=== PATIENT | male | born 1935 | race Hispanic/Latino ===

== ENCOUNTER 2017-08-22 12:22 | Inpatient (IN) | payer MEDICAID, SELFPAY ==
[2017-08-22 13:00] LABS: #Basophils 0.1 thou/uL (0.0-0.2); #Eosinphils 0.1 thou/uL (0.0-0.7); #Lymphocytes 1.1 thou/uL (1.20-3.40); #Monocytes 0.3 thou/uL (0.11-0.59); #Neutrophils 4.2 thou/uL (1.40-6.50); %Basophils 1.4 % (0.0-1.0); %Lymphocytes 18.9 % (21.0-51.0); %Neutrophils 73.6 % (42.0-75.0); Hemoglobin 12.4 g/dL (14.0-18.0); Mean Corpuscular HGB CONC 32.9 g/dL (32.0-36.0); Mean Corpuscular Hemoglobin 32.3 pg (27.0-31.0); Mean Corpuscular Volume 98.1 fl (80.0-94.0); Mean Platelet Volume 6.5 fL (7.4-10.4); Platelet Count 214 thou/uL (130-400); RBC Distribution Width 12.8 % (11.5-14.5); Red Blood Cell (RBC) Count 3.84 mill/uL (4.70-6.10); White Blood Cell (WBC) Count 5.7 thou/uL (4.8-10.8)
[2017-08-22 13:12] LABS: INR-International Normal Ratio 1.1; PTT 28.5 SEC (22.9-36.1); Prothrombin Time 14.5 SEC (12.0-14.7)
[2017-08-22 13:14] LABS: ALT (SGPT) 16 U/L (8-55); AST (SGOT) 14 U/L (5-34); Albumin 3.5 g/dL (3.4-4.8); Alkaline Phosphatase 85 U/L (40-150); Anion Gap 9 mmol/L (10-20); BUN (Urea Nitrogen) 22 mg/dL (8.4-25.7); Bilirubin, Total 0.5 mg/dL (0.2-1.2); Calc. Creatinine Clearance 0 mL/min (70-130); Calcium 8.9 mg/dL (7.8-10.44); Carbon Dioxide 28 mmol/L (23-31); Chloride 105 mmol/L (98-107); Estimated GFR-MDRD 65; Globulin 3.4 g/dL (2.4-3.5); Glucose 139 mg/dL (83-110); Potassium 3.3 mmol/L (3.5-5.1); Protein, Total 6.9 g/dL (5.8-8.1); Sodium 139 mmol/L (136-145)
[2017-08-22 13:17] LABS: CKMB 1.8 ng/mL (0-6.6); Troponin I 0.185 ng/mL (< 0.028)
--- NOTE | 2017-08-22 13:18 | CT ---
NONCONTRAST CT HEAD: DATE: 08/22/17. HISTORY: Altered mental status. COMPARISON: None available. FINDINGS: There is a craniotomy defect involving the posterolateral left occipital bone. There is encephalomal acia underlying the craniotomy defect which may be related to either remote injury or encephalomalaci a secondary to remote infarction. There is decreased attenuation in the periventricular white matter related to chronic small-vessel ischemic changes. Low-density foci are seen in each basal ganglia s uggesting lacunar infarctions of indeterminate age. Low-density areas are also seen in the sheryl bila terally which may represent chronic ischemic changes. There is no evidence of an acute cortical infa rction, hemorrhage, mass effect, or midline shift. Mild cerebral volume loss is present. The mastoid air cells are not well pneumatized, but the visualized mastoid air cells do appear opacif ied. There is mucosal thickening present in the left maxillary antrum and to a lesser degree each sp henoid sinus. IMPRESSION: 1. No acute intracranial abnormalities demonstrated. 2. Indeterminate lacunar infarctions in each basal ganglia. 3. Encephalomalacia left temporo-occipital lobe with overlying craniotomy defect present. There is ex vacuole dilatation of the occipital horn and temporal horn of the left lateral ventricle. 4. Chronic small-vessel ischemic changes. 5. Question of slight increased density in the left middle cerebral artery, but this is not as dense as typically expected with a hyperdense middle cerebral artery sign, but acute thrombus within the l eft middle cerebral artery cannot be entirely excluded. CTA brain is recommended for further evaluat ion. The above findings were discussed with Dr. Riggs in the emergency department on 08/22/17 at 1234 hour s. CODE CR POS: [facility]
--- NOTE | 2017-08-22 13:45 | CT ---
CT ANGIOGRAM HEAD WITH IV CONTRAST AND 3D RECONSTRUCTIONS CT ANGIOGRAM NECK WITH IV CONTRAST AND 3D RECONSTRUCTIONS: DATE: 08/22/17. HISTORY: Patient with stroke. Abnormal noncontrast CT head. TECHNIQUE: Contiguous axial CT images are obtained through the neck and head from the level of the aortic arch t o the vertex after the administration of intravenous contrast. Three-D reconstruction images are pro vided. COMPARISON: Noncontrast CT head on 08/22/17. FINDINGS: CTA NECK: The left common carotid artery arises from the innominate artery. There is atherosclerotic plaque in volving the great vessels, greatest involving the left subclavian artery where there is mild to moder ate narrowing seen proximally involving the left subclavian artery. The right subclavian artery whil e partially obscured does appear overall patent. The bilateral common carotid arteries are patent. There is mild atherosclerotic plaque in the region of the carotid bulbs and proximal internal carotid arteries bilaterally, but the internal carotid ar teries are otherwise patent. There is tortuosity involving the left internal carotid artery at the l evel of the C2 vertebral body, and a portion of the left ICA is mildly dilated which could be related to prior endarterectomy. The right vertebral artery is occluded at the origin. The left vertebral artery is patent. There is reflux of contrast into a very small caliber right vertebral artery at the skull base. Degenerative changes are seen in the cervical spine. Prevertebral soft tissues are within normal limits. There is volume loss involving the visualized upper lobes bilaterally with a few peripheral blebs and findings suggestive of minimal emphysematous changes of the lungs bilaterally. IMPRESSION: 1. 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 2. Mild to moderate narrowing involving the proximal left subclavian artery. 3. Atherosclerotic plaque involving the internal carotid arteries bilaterally, but no focal stenosis is present. The left internal carotid artery at the level of the C2 vertebral body is tortuous. CT ANGIOGRAM BRAIN WITH IV CONTRAST AND 3D RECONSTRUCTIONS: There is occlusion of the left middle cerebral artery at the level of the M1 segment left middle cere bral artery. The right middle cerebral artery is patent and branches of the right middle cerebral ar laila also appear patent. The bilateral anterior cerebral arteries are patent. The A1 segment on the right is not visualized and may be either absent or very small in caliber, either of which is a norm al variant. The basilar artery as well as the posterior cerebral arteries bilaterally are patent. As noted on the noncontrasted CT scan, there is encephalomalacia within the left temporo-occipital lo be with ex vacuo dilatation of the occipital and temporal horns of the left lateral ventricle and ove rlying craniotomy defect. The remainder of the findings of the CT head are described on noncontraste d CTA exam. IMPRESSION: 1. Occlusion of the left middle cerebral artery at the level of the M1 segment. 2. The right middle cerebral and the anterior cerebral arteries as well as posterior cerebral arteri es are patent. 3. Reflux of contrast into a very small caliber right vertebral artery which was shown on the CTA of the neck to be occluded at the origin of the right vertebral artery. 4. Encephalomalacia and gliosis of the left temporo-occipital lobe. 5. There are multilevel degenerative changes in the cervical spine with slight anterolisthesis of C5 on C6 and fusion of the C4 and C5 vertebral bodies. 6. The above findings were discussed with Dr. Riggs in the emergency department on 08/22/17 at 1248 hours. POS: [facility]
--- NOTE | 2017-08-22 13:51 | RAD ---
PORTABLE CHEST 1 VIEW: Date: 08/22/17 Time: 1332 hours HISTORY: Stroke alert. FINDINGS/IMPRESSION: The heart is enlarged. The lungs are expanded with mild pulmonary vascular congestion. No lobar conso lidation, pneumothoraces, or large effusions are seen. POS: [facility]
--- NOTE | 2017-08-22 16:28 | HP ---
PRIMARY CARE PHYSICIAN: Dr. Solitario. CHIEF COMPLAINT: Sudden loss of function on the right side and confusion. HISTORY OF PRESENT ILLNESS: The history of present illness is taken primarily from conversation with the patient's grandson who is at the bedside and he also got information from other family members o haider the telephone while we there in the ER. Mr. Maloney is a pleasant 82-year-old gentleman that has a history of hypertension and hypothyroidism. He also has a history of previous stroke about 20 years ago. He was in his usual state of health until he was sitting outside talking with family and then s uddenly he fell to the right side. They could tell that he was moving his left side, but he was not moving the right side. They got concerned and called EMS. His grandson was the one who called and h e says that they got there in about 5 minutes and during that time, they are waiting for the ambulanc e to arrive. The patient seemed to be making gurgling noises and gasping for breath. He does not se em to have any other symptoms; however, he said that he was talking and seemed like they can understa nd what he was saying. Other than that no other symptomology is obtainable. The patient currently i s just groaning, not making any particular words and does not follow commands. In the ER, he was anamaria luated and a CT scan of the brain was done. There was some area suspicious for an indeterminate lacu ar infarct in each basal ganglion. There is no evidence of any bleed. Given that the symptoms star jagdish within the window for tPA, stroke alert was initiated and the patient did undergo tPA and right n ow he is being prepared to be admitted to the ICU for post-tPA treatment. It has been about 30-45 mi nutes post-tPA and there has not been any significant improvement in his symptoms. REVIEW OF SYSTEMS: Unobtainable as the patient is unable to speak at this time. PAST MEDICAL HISTORY: Taken from the patient's grandson and includes hypertension, hypothyroidism, B PH, Alzheimer's disease. He says he started losing his memory about 7 years ago. History of cerebro vascular accident in which he had some hemiparesis and some memory problems, but he said this got bet ter. PAST SURGICAL HISTORY: Significant for some type of surgery on his head as well as surgery on the ri ght eye. ALLERGIES: No known drug allergies. SOCIAL HISTORY: Unknown. FAMILY HISTORY: Significant for a brother who had a heart attack as well as his father had a heart a ttack and brother had a stroke. MEDICATIONS: Include levothyroxine 50 mcg daily, Flomax 0.4 mg daily, sertraline 50 mg daily, Namend a 10 mg twice a day, donepezil 10 mg daily, amlodipine 10 mg daily, losartan/hydrochlorothiazide 100/ 25 daily, and finasteride 5 mg daily. PHYSICAL EXAMINATION: GENERAL: He is awake, but he appears to be disoriented. He is at time thrashing about on the stretc her. He does not follow anybody in the room and does not make eye contact. He is well-developed and well-nourished. VITAL SIGNS: His blood pressure was 134/66, heart rate 67, respiratory rate of 14, temperature is 97 .8. HEENT: His right pupil is larger than that on the left. It is irregular and there is some arcus sen ilis. Throat: He does look to have a right facial droop. NECK: There are no bruits, no adenopathy. LUNGS: Clear. There is no wheezing, no rales. CARDIOVASCULAR: He has a normal S1 and S2. The heart rate is slightly irregular. No murmurs apprec iated. ABDOMEN: Obese, it is soft, positive for bowel sounds. EXTREMITIES: There is 1+ pedal edema. NEUROLOGIC: He is moving the left side. He is moving the right leg. It appears to be slightly weak er than on the right than on the left and he will not follow commands. He appears to have a right fa cial droop and the right upper extremity appears to be weak. He appears to be able to move his right upper extremity from the shoulder, but not from the forearm. LABORATORY DATA AND IMAGING DATA: White blood cell count is 5.7, hemoglobin is 12.4, hematocrit is 3 7.7, and platelet count is 214. INR is 1.1. Sodium is 139, potassium 3.3, chloride is 105, CO2 is 2 8, BUN of 22, creatinine 1.09, and glucose is 139. Troponin was 0.0185. EKG was atrial fibrillation with heart rate of 67 and possible infarct in the lateral infarct with some poor R-wave progression in II, III, and AVF. He had a CT angiogram of the neck and brain with brain perfusion and there was an occlusion of left middle cerebral artery at the level of the M1 segment. The right middle cerebra l artery and intracerebral arteries as well as posterior cerebral arteries were patent. There was en cephalomalacia and gliosis of the left tempo-occipital lobe. There was some degenerative joint disea se at C5-C6 and C4-C5. The findings based on the perfusion images are most suggestive of a completed infarct in the left middle cerebral artery distribution. There is no significant penumbra in that a ihsan. ASSESSMENT AND PLAN: This is an 82-year-old gentleman who is admitted with an acute left middle cere bral artery distribution cerebrovascular accident who is post-tPA. He will be admitted to the ICU fo r the post-tPA protocol. We will hold off on any aspirin therapy for the next 48 hours. Continue to monitor him closely for signs of any neurological compromise which would suggest cerebral hemorrhage . Neurology will be consulted. He will likely require an MRI or repeat CT scan in the a.m. An echo cardiogram will be done. Since he is in atrial fibrillation, we will also consult Cardiology. At so me point, he will need to be considered for anticoagulation; however, the timing of which will be def erred to both Neurology and Cardiology. Since he will be in the ICU, a Critical Care consult will al so be obtained. He will be left n.p.o. Speech therapy will be consulted as well as physical therapy and occupational therapy. Further recommendations will be based on his clinical progression.
[2017-08-22 16:55] LABS: Troponin I 0.165 ng/mL (< 0.028)
[2017-08-22] MEDS ORDERED: ISOVUE-370 76%-LOCM 1 ML ONE (17:20)
[2017-08-22] MEDS: Sodium Chloride 0.9% 1,000 ML IV SCH (17:28)
[2017-08-22 19:41] LABS: Troponin I 0.182 ng/mL (< 0.028)
[2017-08-22] MEDS: Lorazepam 2 MG/ML VIAL SLOW IVP PRN (20:18)
[2017-08-22] MEDS: Famotidine/PF 20 mg/2ml Vial SLOW IVP SCH (20:19)
--- NOTE | 2017-08-22 22:11 | CON ---
DATE OF CONSULTATION: 08/22/2017 CHIEF COMPLAINT: Acute stroke. HISTORY OF PRESENT ILLNESS: Patient is unable to give me any medical history and I was able to obtai n history only from his chart. Patient was apparently sitting at home with his grandson and has a pr ior history of dementia, hypertension, hypothyroidism, and prior stroke 20 years ago and he was talki ng to his family and then fell to the right side and they could tell he was moving the left side and he was unable to talk and made gurgling noises, gasping for breath and he was brought to the ER and h e was given IV TPA and subsequent to that, he was transferred to CCU and I was consulted this evening to come and see the patient. At this time, patient is agitated, somewhat drowsy and when he does wa ke up, tried to move his whole body, and I did not see any movement in the right arm. Per nurses, he tries to throw himself off the bed. PREVIOUS MEDICAL HISTORY: Hypertension, hypothyroidism, Alzheimer dementia, and CVA which is remote. PREVIOUS SURGICAL HISTORY: Brain surgery and right eye surgery, details unknown. ALLERGIES: No drug allergies. SOCIAL HISTORY: Lives with family. FAMILY HISTORY: Positive for DC in his brother and stroke. REVIEW OF SYSTEMS: Unobtainable. MEDICATIONS: As noted in chart. LABORATORY WORKUP: White count 5.7, hemoglobin 12.4, hematocrit 37.7, platelets 214. Chemistry: So dium 139, potassium 3.3, chloride 105, bicarbonate 28, BUN 22, creatinine 1.09, troponin I 0.[address] scan of the head was done at 12:24 p.m. and it shows no acute intracranial abnormalities, but he h as indeterminate lacunar infarctions bilateral vein basal ganglia, encephalomalacia of left temporal- occipital lobe with overlying craniotomy defect and there is ex vacuo dilatation of the occipital hor n, chronic small vessel ischemic changes, and questionable slight increased density in the left MCA, but is not as dense as typically expected with hyperdense MCA sign and CT angiogram was also complete d and CT angio shows occlusion of the left MCA at the level of the M1 segment, right MCA, and anterio r cerebral arteries as well as posterior cerebral arteries are patent. Reflux of contrast into a haider y small caliber right vertebral artery was shown and encephalomalacia gliosis of left temporal-occipi driss lobe. CT angio of the neck showed occlusion of right vertebral artery at the region and mild to moderate narrowing involving the proximal left subclavian artery atherosclerotic plaque in the intrac ranial arteries bilaterally. PHYSICAL EXAMINATION: VITAL SIGNS: Blood pressure 80/51, pulse rate is 102, and patient is afebrile. Temperature 98.3 and O2 sats 95. GENERAL APPEARANCE: Well-built, well-nourished gentleman who is not alert or cooperative. He is deborah ble to follow any commands. He goes from being sleepy to agitated. CHEST: Clear vesicular breathing. CARDIOVASCULAR: S1, S2 heard, no murmurs, carotids difficult to auscultate. ABDOMEN: Soft. NEUROLOGICAL: Higher intellectual functions. The patient is thrashing in bed at times or sleepy. C ranial nerves: He has gaze deviation to the left fundus normal. Facial asymmetry with right facial droop. He did not open his mouth for me to assess his palate or tongue exam. Motor examination: Bu lk normal, tone normal, strength unable to assess, but he seems to move his left upper and lower extr emities well and not moving his right upper and lower extremity and tends to get agitated. Deep tend on reflexes were absent, unable to assess sensory or cerebellar systems. IMPRESSION: The patient is an 82-year-old man with prior preexisting Alzheimer's dementia. He comes in with acute stroke and is status post IV TPA. At this time, his examination shows agitation or sl eepiness with predominantly predominate and primary ability to move the left side of his body. He is not moving his right side. His mental status is varying from drowsiness to agitation. Clinical lalito gnosis and history is most consistent with acute cerebrovascular accident status post IV TPA and ence phalopathy. RECOMMENDATIONS: 1. Please follow the protocol for post-IV TPA stroke prophylaxis and we will maintain his blood pres sures within parameters to allow cerebral perfusion. 2. Monitor his neurological status, particularly for any possible decline due to his age and also lev el of consciousness. I will follow up the patient with you in a.m. Please call me if you have any additional questions.
[2017-08-23 05:45] LABS: #Lymphocytes 1.3 thou/uL (1.20-3.40); #Monocytes 0.6 thou/uL (0.11-0.59); #Neutrophils 9.4 thou/uL (1.40-6.50); %Basophils 0.2 % (0.0-1.0); %Eosinophils 0.3 % (0.0-10.0); %Lymphocytes 11.2 % (21.0-51.0); %Monocytes 5.4 % (0.0-10.0); %Neutrophils 82.9 % (42.0-75.0); Hemoglobin 12.3 g/dL (14.0-18.0); Mean Corpuscular HGB CONC 32.9 g/dL (32.0-36.0); Mean Corpuscular Volume 97.1 fl (80.0-94.0); Platelet Count 214 thou/uL (130-400); RBC Distribution Width 12.8 % (11.5-14.5); Red Blood Cell (RBC) Count 3.85 mill/uL (4.70-6.10); White Blood Cell (WBC) Count 11.4 thou/uL (4.8-10.8)
[2017-08-23 06:05] LABS: Anion Gap 8 mmol/L (10-20); BUN (Urea Nitrogen) 19 mg/dL (8.4-25.7); Calc. Creatinine Clearance 81 mL/min (70-130); Calcium 8.8 mg/dL (7.8-10.44); Carbon Dioxide 28 mmol/L (23-31); Cardiac Risk 3.7 (Less than 4.5); Chloride 110 mmol/L (98-107); Cholesterol 157 mg/dl (< 200 Desired); Estimated GFR-MDRD 78; Glucose 105 mg/dL (83-110); HDL Cholesterol 43 mg/dL (>60 Neg Risk); LDL Cholesterol, Calculated 103 mg/dL; Potassium 3.1 mmol/L (3.5-5.1); Sodium 143 mmol/L (136-145); Triglycerides 56 mg/dL (Less than 150)
[2017-08-23] MEDS: Lorazepam 2 MG/ML VIAL SLOW IVP PRN (06:36)
[2017-08-23] MEDS: Sodium Chloride 0.9% 1,000 ML IV SCH ×2 (06:36→18:40)
--- NOTE | 2017-08-23 09:41 | PDOC.PN ---
- Subjective Encounter Start Date: 08/23/17 Encounter Start Time: 09:39 Mr. Maloney appears confused and encephalopathic. He is not able to follow commands , and is not following with his eyes, he keeps them closed and is squirming around in the bed. He has been placed in restraints. - Objective Resuscitation Status: Resuscitation Status FULL:Full Resuscitation MAR Reviewed: Yes Vital Signs & Weight: Vital Signs (12 hours) Temp 08/23/17 04:00 98.6 F Weight Weight 207 lb 3.752 oz Most Recent Monitor Data Heart Rate from ECG 62 NIBP 133/64 NIBP BP-Mean 99 Respiration from ECG 12 SpO2 99 I&O: 08/22/17 08/23/17 08/24/17 06:59 06:59 06:59 Intake Total 1083 Output Total 0 Balance 1083 Result Diagrams: 08/23/17 05:30 08/23/17 05:30 Phys Exam - Physical Examination + right pupil is larger, left smaller, and reactive Respiratory: no rales + rhonchi bilaterally Cardiovascular: no significant murmur, irregular Gastrointestinal: soft, positive bowel sounds Musculoskeletal: no edema Dx/Plan (1) Acute CVA (cerebrovascular accident) Code(s): I63.9 - CEREBRAL INFARCTION, UNSPECIFIED Status: Acute (2) Hypertension Code(s): I10 - ESSENTIAL (PRIMARY) HYPERTENSION Status: Acute (3) Metabolic encephalopathy Code(s): G93.41 - METABOLIC ENCEPHALOPATHY Status: Acute (4) Dementia Code(s): F03.90 - UNSPECIFIED DEMENTIA WITHOUT BEHAVIORAL DISTURBANCE Status: Acute (5) BPH (benign prostatic hyperplasia) Code(s): N40.0 - BENIGN PROSTATIC HYPERPLASIA WITHOUT LOWER URINRY TRACT SYMP Status: Acute (6) Hypothyroidism Code(s): E03.9 - HYPOTHYROIDISM, UNSPECIFIED Status: Acute - Plan * Acute CVA s/p TPA- is condition has not improved much overnight * Will await further recommendations from Neurology * Begin aspirin when it is allowed * AFIB- ? new onset- his heart rate is controlled- there was no mention of this from his family, but not sure if they are familiar with his entire history - Cardiology has been consulted * Continue IV fluids * HTN- blood pressure has been stable- and will allow permissive hypertension * Encephalopathy- ? related to acute CVA.
[2017-08-23] MEDS: FLU VACC TS2017-18 (>65YR) 0.5 ML SYRINGE IM ONE ×2 (10:35→23:01)
[2017-08-23] MEDS: Famotidine/PF 20 mg/2ml Vial SLOW IVP SCH ×2 (10:35→21:10)
[2017-08-23] MEDS: Haloperidol Lactate 5 MG/ML VIAL IM PRN ×2 (11:57→22:09)
--- NOTE | 2017-08-23 14:26 | PRG ---
DATE OF SERVICE: 08/23/2017 CHIEF COMPLAINT: CVA. INTERVAL HISTORY: The patient is still very agitated throughout the night and patient continues to h ave agitation when awake. Therefore, he has been given Ativan this morning. My examination is post- Ativan injection earlier this morning. Per nurse, he is thrashing mostly when in bed and this has be en consistent since his admission. PHYSICAL EXAMINATION: VITAL SIGNS: Blood pressure 169/103, heart rate is 62 and he is afebrile. GENERAL APPEARANCE: The patient seems to be sedated and sleepy. CHEST: Clear vesicular breathing. CARDIOVASCULAR: S1 and S2 heard. NEUROLOGIC: The patient is not arousable, maximum response obtained is slight grimacing and grunting . Cranial nerves: Pupils are slightly asymmetric due to prior eye surgery in the right side and pup illary reflexes still preserved. Some facial asymmetry with facial weakness on the right side and mo tor exam, he is not withdrawing to stimuli even with deep pain throughout. Deep tendon reflexes were absent. LABORATORY AND IMAGING REPORTS: White count 11.4, hemoglobin 12.3, hematocrit 37.4 and platelets 214 . Chemistries: Sodium 143, potassium 3.1, chloride 110, bicarbonate 28, BUN 19, creatinine 0.93, tr iglycerides 56, cholesterol 157, LDL 103 and HDL [address]. Today's CT head is pending. IMPRESSION: The patient is an 82-year-old man with preexisting dementia and cerebrovascular accident . At this time, it is difficult to understand why he has altered mental status since admission witho ut any metabolic abnormalities. This could be most likely due to his cerebrovascular accident plus p reexisting dementia resulting in agitation. At this time, patient is sedated. Therefore, my neurolo gical exam is not very reliable. RECOMMENDATIONS: 1. Please complete his CT scan of the head today and I will follow up on the result. 2. If his encephalopathy continues, we may have to look more carefully for any underlying metabolic issues such as infection. 3. I will follow up the patient with you on a daily basis.
--- NOTE | 2017-08-23 15:39 | CON ---
DATE OF CONSULT: 08/23/17 HISTORY OF PRESENT: The patient is an 82-year-old gentleman who suffered a cerebrovascular accident and noted to be in an irregular heart rhythm. The patient is unable to give any coherent history. He has apparently a history of dementia. The patient apparently was admitted with acute altered mental status. He received TPA and was noted to be in irregular heart rhythm. PAST MEDICAL HISTORY: Significant for 1. Atrial fibrillation. 2. Dementia. 3. Hypertension. PAST SURGICAL HISTORY: Brain surgery and eye surgery. ALLERGIES: None. SOCIAL HISTORY: MEDICATIONS: See nursing list. REVIEW OF SYSTEMS: Not obtainable. PHYSICAL EXAMINATION GENERAL: Ill-appearing gentleman who is responsive to painful stimuli, Blood pressure 133/64. NECK: No jugular venous distention. LUNGS: Clear to auscultation. HEART: Irregular rate and rhythm, normal S1, S2. ABDOMEN: Distended. EXTREMITIES: Trace edema. LABORATORY: Sodium 143, potassium 3.1, chloride 110, bicarbonate 28, BUN 19, creatinine 0.93. His troponin is 0.182. His white blood cell count is 11.4, hemoglobin 12.3, hematocrit 37.4, and platelets 214. EKG revealed atrial fibrillation with left anterior fascicular block. IMPRESSION: 1. Status post cerebrovascular accident. 2. Atrial fibrillation 3. Hypertension. 4. Dementia. This gentleman suffered a cerebrovascular accident. We will check the patient' s echocardiogram. Await Neurology evaluation. The patient will eventually need to be placed on long-term anticoagulation therapy. Prognosis is poor. MTDD
--- NOTE | 2017-08-23 16:33 | CT ---
CT OF HEAD NONCONTRAST 08/23/17 INDICATION: Stroke. History of recent TPA administration. FINDINGS: Compared to 08/22/17 exam. There is a large region of left MCA subacute infarction with associated cytotoxic edema. This does re sult in mild mass effect with slight effacement of the left lateral ventricle. No significant shift o f midline structure. There is no obvious intracranial hemorrhage. Evidence of prior left craniotomy. IMPRESSION: Large subacute left MCA distribution infarction with mild associated mass effect. No obvious hemorrha ge transformation. POS: [facility]
--- NOTE | 2017-08-23 23:07 | CON ---
DATE OF CONSULTATION: 08/23/2017 HISTORY OF PRESENT ILLNESS: Mr. Maloney is an 82-year-old male. He was given TPA for right-sided weakn ess. He is very fidgety and difficult to keep in bed per my discussion with the nurses. He has a history of dementia, but is not at a patient support tech care environment. I was consulted because of his presence to the Critical Care Unit. PAST MEDICAL HISTORY: 1. Remarkable for hypertension. 2. Hypothyroidism. 3. History of a stroke in the past. 4. History of some type of brain surgery in the past. FAMILY HISTORY: Negative for lung disease at an early age. SOCIAL HISTORY: Non-smoker, nondrinker. ALLERGIES: He reports no allergies. MEDICATIONS: Have been reviewed. REVIEW OF SYSTEMS: Not obtainable. PHYSICAL EXAMINATION: VITAL SIGNS: His oximetry is 100%, blood pressure 165/83, heart rate 67, respiratory rate 17, oximet ry is 95%. HEENT: Pupils react. Sclerae is anicteric. He is protecting his airway. He moves all around the b ed. LUNGS: Clear. HEART: Regular rhythm. S1 and S2 are normal. ABDOMEN: Soft and nontender. EXTREMITIES: Without asymmetry. LABORATORY AND X-RAY FINDINGS: Repeat head CT shows middle cerebral artery distribution, left-sided thrombotic CVA with mass effect. White count is 11.4, hemoglobin 12.3, platelets 214. Sodium 143, potassium 3.1, chloride 110, bicarbonate 28, BUN 19, creatinine 0.93. 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 Has underlying dementia and does not help the situation. PLAN: Continue supportive care. Code status needs to be addressed. He is protecting his airway marky quately, but may progressively decline with time. This is a 70 minute consult greater than 50% of the time spent on the coordinating Care on the unit.
[2017-08-24] MEDS: Sodium Chloride 0.9% 1,000 ML IV SCH ×2 (06:20→19:17)
[2017-08-24] MEDS ORDERED: Prevnar 13-Val Conj/PF 0.5 ML SYRINGE IM ONE (09:00)
[2017-08-24] MEDS: Famotidine/PF 20 mg/2ml Vial SLOW IVP SCH ×2 (09:18→21:26)
--- NOTE | 2017-08-24 09:52 | PDOC.PN ---
- Subjective Encounter Start Date: 08/24/17 Encounter Start Time: 09:50 Mr. Maloney has not demonstrated much improvement overnight. He is still confused, and does not follow commands. - Objective Resuscitation Status: Resuscitation Status DNR:Do Not Resuscitate MAR Reviewed: Yes Vital Signs & Weight: Vital Signs (12 hours) Temp 08/24/17 08:00 98.6 F 08/24/17 04:00 98.3 F 08/24/17 00:00 98.4 F Weight Admit Weight 207 lb 3.752 oz Weight 207 lb 3.752 oz Most Recent Monitor Data Heart Rate from ECG 55 NIBP 164/75 NIBP BP-Mean 90 Respiration from ECG 13 SpO2 97 I&O: 08/23/17 08/24/17 08/25/17 06:59 06:59 06:59 Intake Total 1083 1627 Output Total 0 555 130 Balance 1083 1072 -130 Result Diagrams: 08/23/17 05:30 08/23/17 05:30 Phys Exam - Physical Examination HEENT: PERRLA Respiratory: wheezing present + expiratory wheeze, + rhonchi Cardiovascular: RRR, no significant murmur, no rub Gastrointestinal: soft, non-tender, positive bowel sounds Musculoskeletal: no edema Dx/Plan (1) Acute CVA (cerebrovascular accident) Code(s): I63.9 - CEREBRAL INFARCTION, UNSPECIFIED Status: Acute (2) Hypertension Code(s): I10 - ESSENTIAL (PRIMARY) HYPERTENSION Status: Acute (3) Metabolic encephalopathy Code(s): G93.41 - METABOLIC ENCEPHALOPATHY Status: Acute (4) Dementia Code(s): F03.90 - UNSPECIFIED DEMENTIA WITHOUT BEHAVIORAL DISTURBANCE Status: Acute (5) BPH (benign prostatic hyperplasia) Code(s): N40.0 - BENIGN PROSTATIC HYPERPLASIA WITHOUT LOWER URINRY TRACT SYMP Status: Acute (6) Hypothyroidism Code(s): E03.9 - HYPOTHYROIDISM, UNSPECIFIED Status: Acute - Plan * Acute CVA- patient is post TPA and there is no evidence of bleed on repeat CT scan * He unfortunately is still encephalopathic * He can likely be moved out of the ICU * recommendations as per Neurology * AFIB- rate is controlled * HTN- blood pressure is controlled * Continue IV fluids, and will need to consider Nutritional support.
[2017-08-24 10:33] LABS: #Lymphocytes 1.3 thou/uL (1.20-3.40); #Monocytes 0.7 thou/uL (0.11-0.59); #Neutrophils 8.2 thou/uL (1.40-6.50); %Basophils 0.2 % (0.0-1.0); %Eosinophils 0.3 % (0.0-10.0); %Lymphocytes 12.6 % (21.0-51.0); %Monocytes 6.7 % (0.0-10.0); %Neutrophils 80.2 % (42.0-75.0); Hemoglobin 12.6 g/dL (14.0-18.0); Mean Corpuscular HGB CONC 33.1 g/dL (32.0-36.0); Mean Corpuscular Hemoglobin 32.2 pg (27.0-31.0); Mean Corpuscular Volume 97.3 fl (80.0-94.0); Mean Platelet Volume 6.8 fL (7.4-10.4); Platelet Count 214 thou/uL (130-400); RBC Distribution Width 12.9 % (11.5-14.5); Red Blood Cell (RBC) Count 3.93 mill/uL (4.70-6.10); White Blood Cell (WBC) Count 10.2 thou/uL (4.8-10.8)
[2017-08-24 10:53] LABS: Anion Gap 9 mmol/L (10-20); BUN (Urea Nitrogen) 18 mg/dL (8.4-25.7); Calc. Creatinine Clearance 81 mL/min (70-130); Calcium 8.9 mg/dL (7.8-10.44); Carbon Dioxide 28 mmol/L (23-31); Chloride 109 mmol/L (98-107); Estimated GFR-MDRD 77; Glucose 104 mg/dL (83-110); Potassium 3.2 mmol/L (3.5-5.1); Sodium 143 mmol/L (136-145)
--- NOTE | 2017-08-24 11:33 | PRG ---
DATE OF SERVICE: 08/24/2017 SUBJECTIVE: Mr. Maloney is worse today. He is less responsive. OBJECTIVE: VITAL SIGNS: His blood pressure is 164/75, heart rate is 55, respiratory rate is 13, oximetry is 97. LUNGS: He has prolonged expiratory phase and is using accessory muscles. HEART: Regular rhythm. ABDOMEN: Soft. EXTREMITIES: Without asymmetry. LABORATORY DATA: White count 11.4, hemoglobin 12.3, platelets 214,000. Sodium 143, potassium 3.1, chloride 110, bicarbonate 28, BUN 19, creatinine 0.93. IMPRESSION: 1. 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 2. Progressive decline in mental status. 3. Hypertension. 4. History of a past stroke. 5. History of dementia. I had a long discussion with his son, who is at the bedside. He says his father would not want to be put on a machine or kept alive on a machine, so DO NOT RESUSCITATE order has been entered. He has, I believe, 6 or 7 siblings. I have asked him to notify them and inform them that they need to come a nd see him. I do not anticipate he will survive this admission. We will continue with supportive care, but his prognosis is quite poor. Critical care time 30 minutes.
--- NOTE | 2017-08-24 13:53 | PRG ---
DATE OF SERVICE: 08/24/2017 CHIEF COMPLAINT: Acute stroke. INTERVAL HISTORY: The patient's family was by his bedside and they were able to help me understand m ore about this patient. He is hard of hearing. He is primarily Upper Sorbian speaking. They report that he does respond to them when they speak to him and he is doing well for them today compared to even y esterday and they still feel that he has some confusion and does have some agitation intermittently. CURRENT LABORATORY RESULTS AND IMAGING: White count 10.2, hemoglobin 12.6, hematocrit 38.2, platelet count 214. Chemistry: Sodium 143, potassium 3.2, chloride 109, bicarbonate 28, BUN 18, creatinine 0.94. CT scan of the head yesterday shows large subacute left MCA distribution infarction with mild associated mass effect. No hemorrhagic transformation. PHYSICAL EXAMINATION: VITAL SIGNS: Blood pressure 157/85, heart rate is 73, temperature is 98.6. The patient is afebrile and respiratory rate is 23. GENERAL: Well-built, well-nourished man who is being supported by his family members. CHEST: Clear vesicular breathing. CARDIOVASCULAR: S1, S2 heard. No murmurs. ABDOMEN: Soft. NEUROLOGICAL EXAMINATION: I completed my exam today with help from family. High intellectual functi ons: He can follow simple 1-step command. He is intermittently agitated and irritated by the wires and tubes in the ICU. Cranial nerves: Pupils are reactive to light. Right pupil is asymmetric, siz e of pupil, 1 mm on the left, 1.5 mm on the right. He has mild right facial weakness. Motor examina tion: He does move his left side quite well and has good hand campaign analyst as well as strength in the left l ower extremity. He is able to raise his right lower extremity against gravity. Right upper extremit y strength is 1/5-2/5 sometimes. IMPRESSION: The patient is an 82-year-old man with a preexisting dementia and current stroke. He is having difficulties with his motor function at this time and he is able to follow some commands and is improving compared to yesterday. At this time, he has right-sided weakness. RECOMMENDATIONS: 1. The patient is stable. Continue present management for his stroke. 2. He can be moved to a stroke floor. 3. Consider SNF placement or rehabilitation placement based on mental status tomorrow. 4. Call Neurology as needed. We could not complete the MRI, because of his mental status and enceph alopathy.
[2017-08-24] MEDS: Lorazepam 2 MG/ML VIAL SLOW IVP PRN (18:26)
[2017-08-24] MEDS: hydrALAZINE 20 MG/ML VIAL SLOW IVP PRN (21:26)
[2017-08-25] MEDS: Lorazepam 2 MG/ML VIAL SLOW IVP PRN ×3 (01:14→23:42)
[2017-08-25] MEDS: hydrALAZINE 20 MG/ML VIAL SLOW IVP PRN (06:11)
[2017-08-25] MEDS: Sodium Chloride 0.9% 1,000 ML IV SCH ×2 (06:14→21:19)
[2017-08-25] MEDS: Famotidine/PF 20 mg/2ml Vial SLOW IVP SCH ×2 (09:11→21:20)
--- NOTE | 2017-08-25 09:55 | PDOC.PN ---
- Subjective Encounter Start Date: 08/25/17 Encounter Start Time: 09:51 Mr. Maloney was seen today in follow-up. He is still somnolent. He has not made significant change. - Objective Resuscitation Status: Resuscitation Status DNR:Do Not Resuscitate MAR Reviewed: Yes Vital Signs & Weight: Vital Signs (12 hours) Temp Pulse Resp BP BP Pulse Ox 08/25/17 07:25 98.4 F 97 20 141/72 H 93 L 08/25/17 06:50 98.1 F 79 20 172/76 H 98 08/25/17 06:11 76 172/77 H Weight Admit Weight 207 lb 3.752 oz Weight 207 lb 3.752 oz Most Recent Monitor Data Heart Rate from ECG 75 NIBP 153/85 NIBP BP-Mean 109 Respiration from ECG 16 SpO2 95 I&O: 08/24/17 08/25/17 08/26/17 06:59 06:59 06:59 Intake Total 1627 987 Output Total 555 1180 Balance 1072 -193 Result Diagrams: 08/24/17 10:00 08/24/17 10:00 Phys Exam - Physical Examination HEENT: PERRLA Respiratory: no wheezing, no rales, no rhonchi, clear to auscultation bilateral Cardiovascular: RRR, no significant murmur Gastrointestinal: soft, non-tender, positive bowel sounds Musculoskeletal: no edema Dx/Plan (1) Acute CVA (cerebrovascular accident) Code(s): I63.9 - CEREBRAL INFARCTION, UNSPECIFIED Status: Acute (2) Hypertension Code(s): I10 - ESSENTIAL (PRIMARY) HYPERTENSION Status: Acute (3) Metabolic encephalopathy Code(s): G93.41 - METABOLIC ENCEPHALOPATHY Status: Acute (4) Dementia Code(s): F03.90 - UNSPECIFIED DEMENTIA WITHOUT BEHAVIORAL DISTURBANCE Status: Acute (5) BPH (benign prostatic hyperplasia) Code(s): N40.0 - BENIGN PROSTATIC HYPERPLASIA WITHOUT LOWER URINRY TRACT SYMP Status: Acute (6) Hypothyroidism Code(s): E03.9 - HYPOTHYROIDISM, UNSPECIFIED Status: Acute - Plan * Acute CVA - patient has been somnolent over the past few dys,It is unlikely that his mental status will improve significantly that he is able to swallow, and take in nutrition. He can not be adequately assessed for swallowing, and I suspect with the size of the stroke that he has some degree of dysphagia. I have explained this to his daughter who says she is his surrogate decision maker. Will consult GI for PEG tube placement * HTN - blood pressure has been trending down * AFIB- his heart rate is controlled- discussed with Cardiology- he will need to be started on anticoagulation. He had a large Stroke, will discuss with Neurology if it is safe to start now * Will need to begin discharge planning.
[2017-08-25] MEDS: Ziprasidone 20 MG VIAL IM PRN (21:47)
[2017-08-26] MEDS: hydrALAZINE 20 MG/ML VIAL SLOW IVP PRN (05:38)
--- NOTE | 2017-08-26 07:53 | CON ---
DATE OF CONSULTATION: 08/25/2017 REFERRING PHYSICIAN: Dr. Oscar Roman. REASON FOR CONSULTATION: 1. Acute cerebrovascular accident, confusion. 2. No oral intake since admission and needs nutritional support. I was asked to see the patient by Dr. Sandeep Roman for possibly endoscopic gastrostomy tube placement. HISTORY OF PRESENT ILLNESS: Mr. Marlon Maloney is an 82-year-old male hospitalized with acute CVA, with loss of functional and confusion. Since admission he has been seen by Neurology service and has had a CAT scan of the brain. The patient has had an infarct in the basal ganglia and no acute bleeding seen. The patient has been eating well since admission. He is restless and a little agitated and does not really open his eyes. He does not responding to any questions. Does move around already, but does not follow commands. The patient was seen in the room along with patient's 2 grandsons. The patient's daughter has gone home because she was staying with him overnight yesterday. The patient apparently has had a prior CVA with recovery. No other relevant history. ALLERGIES: None. SOCIAL HISTORY: The patient does not smoke or drink alcohol. MEDICAL ILLNESSES: 1. Hypertension. 2. Hypothyroidism. 3. Possible history of CVA more than 20 years ago. There is no history of heart disease or lung disease. ALLERGIES: None. FAMILY HISTORY: One brother has had heart attack and also had stroke. Father had heart attack. MEDICATIONS: At the time of admission include levothyroxine, Flomax, sertraline. He was also on Namenda, donepezil, lodipine, losartan, hydrochlorothiazide, and finasteride. REVIEW OF SYSTEMS: Unobtainable. PHYSICAL EXAMINATION: GENERAL: Patient is obese. He does not communicate and does open his eyes. He appears to be disoriented and does move around without any purpose. VITAL SIGNS: His heart rate is 70, blood pressure 140/70. NECK: Supple. No adenitis or thyromegaly noted. CARDIOVASCULAR: First and second heart sounds normal. LUNGS: Clear to auscultation. ABDOMEN: Soft, nontender. No organomegaly or masses. Bowel sounds normal. LABORATORY DATA: WBC 5700, hemoglobin is 12.4, hematocrit 37.7, MCV normal, platelet count 214,000. INR 1.1. Sodium 139, potassium 3.3, chloride 105, bicarbonate 28, BUN is 22, creatinine 1.09, glucose 139. Troponin 0.0185. EKG , atrial fibrillation. CT angiogram shows occlusion of the middle cerebral artery in the area of C5-C6 and C4-C5. CLINICAL IMPRESSION: An 82-year-old male with acute CVA with confusion. He is not really responding to questions and does thrash around . I believe he really needs a G-tube for nutrition. I did speak to grandsons and apparently their mother has power of state's attorney. I will talk to the patient's daughter tomorrow and if she is agreeable, I will plan for EGD and PEG tube placement. ANGIED
[2017-08-26] MEDS: Famotidine/PF 20 mg/2ml Vial SLOW IVP SCH ×2 (09:18→21:24)
--- NOTE | 2017-08-26 11:30 | PQF ---
DATE: 08-26-17 ATTN: DR. AMY DEL RIO / DR. FRANCE HAIDER Please exercise your independent, professional judgment in responding to the clarification form. Clinical indicators are provided on the bottom of this form for your review Please check appropriate box(s): [ ] Demand Ischemia [ ] [place] (type: ) [X ] Unable to determine In addition, please specify: Present on Admission (POA): [ ] Yes [ ] No [ X] Unable to determine For continuity of documentation, please document condition throughout progress notes and discharge summary. Thank You. CLINICAL INDICATORS - SIGNS / SYMPTOMS/ LABS are present in the medical record: Lab Results: TROPONIN: 08-22-17: 0.185 08-22-17: 0.165 08-22-17: 0.182 RISK FACTORS: H&P: HX OF HTN, HYPOTHYROIDISM, PREVIOUS STROKE 20 YRS AGO, IN WITH A FIB TREATMENT: SERIES OF LABS (MAR) IVF (This form is maintained as a part of the permanent medical record) 2014 [employer]. All Rights Reserved [email or web address] Office: [phone] JARRETT
[2017-08-26] MEDS ORDERED: CEFAZOLIN/Water 2 GM/20 ML SYRINGE ONE (12:13)
[2017-08-26] MEDS ORDERED: Ondansetron HCl/PF 4 MG/2 ML Vial IVP PRN (12:56)
--- NOTE | 2017-08-26 13:17 | OP ---
DATE OF PROCEDURE: 08/26/2017 SURGEON: Dontrell Hobson M.D. OPERATIVE PROCEDURE: Esophagogastroduodenoscopy with endoscopic gastrostomy tube placement. PREOPERATIVE DIAGNOSES: Acute cerebrovascular accident, dysphagia. PROCEDURE IN DETAIL: The patient was placed on his back and the throat was anesthetized with Cetacai ne spray and the patient given sedation by Anesthesia Department. The patient also was given IV Ance f 2 grams before the procedure. A Pentax video gastroscope under direct vision was passed down the o ropharynx, past the gastroesophageal junction, into the stomach and to descending duodenum. The duod enal bulb and descending duodenum, no pathology seen. The patient had some edematous mucosa over the gastric antrum. The fundus, cardia, gastric body, no pathology seen. A gastrostomy tube site was m arked by applying finger pressure over the abdominal wall. The site was cleaned and surgically prepp ed. A size 16 Angiocath was advanced into the stomach and through the Angiocath, a guidewire was fed into the stomach. The guidewire was grasped with polypectomy snare. It was pulled outside the mout h. To the end of the guidewire protruding outside the mouth, a gastrostomy tube was connected. The wire was pulled back retrograde and the tube left in place. The patient was rescoped again to confir m proper placement of tube. There were no complications noted. The stomach was decompressed and the scope removed. RECOMMENDATIONS: May start tube feeding after 6 p.m. today.
[2017-08-26] MEDS: Sodium Chloride 0.9% 1,000 ML IV SCH ×2 (14:09→21:23)
--- NOTE | 2017-08-26 16:00 | PDOC.PN ---
- Subjective Encounter Start Date: 08/26/17 Encounter Start Time: 15:57 Mr Maloney has returned from having the PEG tube placed. He is still somnolent, and continues to have agitation off and on. - Objective Resuscitation Status: Resuscitation Status DNR:Do Not Resuscitate MAR Reviewed: Yes Vital Signs & Weight: Vital Signs (12 hours) Temp Pulse Pulse Pulse Resp BP BP 08/26/17 11:04 99.1 F 84 20 08/26/17 09:15 97.7 F 79 18 08/26/17 08:40 88 82 172/81 H 152/75 H 08/26/17 08:17 99.1 F 84 20 08/26/17 05:38 76 08/26/17 04:00 99.2 F 76 16 BP BP Pulse Ox 08/26/17 11:04 127/84 95 08/26/17 09:15 158/84 H 94 L 08/26/17 08:40 08/26/17 08:17 94 L 08/26/17 05:38 08/26/17 04:00 180/88 H 93 L Weight Admit Weight 207 lb 3.752 oz Weight 207 lb 3.752 oz Most Recent Monitor Data Heart Rate from ECG 75 NIBP 153/85 NIBP BP-Mean 109 Respiration from ECG 16 SpO2 95 I&O: 08/25/17 08/26/17 08/27/17 06:59 06:59 06:59 Intake Total 987 960 Output Total 1180 Balance -193 960 Result Diagrams: 08/24/17 10:00 08/24/17 10:00 Additional Labs: Accuchecks 08/25/17 17:12 POC Glucose 108 Phys Exam - Physical Examination HEENT: PERRLA Respiratory: no wheezing + rhonchi Cardiovascular: RRR, no significant murmur, no rub Gastrointestinal: soft, non-tender, positive bowel sounds Musculoskeletal: no edema Dx/Plan (1) Acute CVA (cerebrovascular accident) Code(s): I63.9 - CEREBRAL INFARCTION, UNSPECIFIED Status: Acute (2) Hypertension Code(s): I10 - ESSENTIAL (PRIMARY) HYPERTENSION Status: Acute (3) Metabolic encephalopathy Code(s): G93.41 - METABOLIC ENCEPHALOPATHY Status: Acute (4) Dementia Code(s): F03.90 - UNSPECIFIED DEMENTIA WITHOUT BEHAVIORAL DISTURBANCE Status: Acute (5) BPH (benign prostatic hyperplasia) Code(s): N40.0 - BENIGN PROSTATIC HYPERPLASIA WITHOUT LOWER URINRY TRACT SYMP Status: Acute (6) Hypothyroidism Code(s): E03.9 - HYPOTHYROIDISM, UNSPECIFIED Status: Acute - Plan * Acute CVA with right sided weakness and neglect- patient is s/p PEG tube placement * HTN- blood pressure has been trending down * Nutritional Support- can begin tube feeding this evening * Will start Lipitor * Await Neurology opinion as to when to start anticoagulation for atrial fibrillation. His heart rate is controlled * Will need to be discharge planning.
[2017-08-26] MEDS ORDERED: PROPOFOL 200 MG/20 ML VIAL ONE (16:52)
--- NOTE | 2017-08-26 17:39 | CON ---
DATE OF CONSULTATION: 08/24/2017 CONSULTING PHYSICIAN: Hospitalist Service. 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 PLAN: 1. The patient will be started back on antiplatelet therapy and statin through his PEG tube. 2. Probable transfer to [facility] if available. HISTORY OF PRESENT ILLNESS: Mr. Maloney is an 82-year-old man with a past history of a stroke. He apparently was functioning independently at the house. He developed acute right-sided weakness, and was brought into the hospital. He was noted to have a left M1 segment occlusion as well as a ri ght vertebral occlusion. He was taken to the energy systems laboratory director and had attempted mechanical thrombectomy. Fo rtunately, his symptoms have not improved in a great deal. He was transferred out of the ICU today. He had a followup CT scan of the brain which shows a large area of ischemia involving the left middl e cerebral artery territory. There is no secondary bleed or significant mass effect. I could not ge t any further history. There was no other family available. PAST MEDICAL HISTORY: Otherwise unknown. SOCIAL HISTORY: Unknown. ALLERGIES: None reported. MEDICATIONS: Unknown. REVIEW OF SYSTEMS: Not obtainable due to his aphasia. PHYSICAL EXAMINATION: GENERAL: Well-nourished, elderly man, who is little restless, lying in bed. HEENT: Pupils are equal. Conjunctivae are clear. He has a left gaze deviation. NECK: Supple. EXTREMITIES: No cyanosis noted. NEUROLOGIC: He would not follow any commands. I could not get him to speak. There was some right f acial droop. He could move the right arm against gravity. He was moving the right leg restlessly. He had seemed to respond to touch in a fairly symmetric fashion. Gait is not testable. CT images were reviewed. SUMMARY: This is an elderly gentleman with a fairly large infarct on the left. Suspect he will have some significant deficits. PEG tube has already been placed. I would go ahead and start him on a r outine for stroke, antithrombotic therapy and statin. Placement will be the next issue.
[2017-08-26] MEDS: Lorazepam 2 MG/ML VIAL SLOW IVP PRN (22:16)
[2017-08-27] MEDS ORDERED: Levothyroxine Sodium 25 MCG TAB PER TUBE SCH (09:00)
[2017-08-27] MEDS ORDERED: Non-Formulary Item 1 EACH (Sertraline Hcl [Sertraline Hcl] 50 MG) PER TUBE SCH (09:00)
[2017-08-27] MEDS ORDERED: Non-Formulary Item 1 EACH (Losartan Potassium [Cozaar] 100 MG) PER TUBE SCH (09:00)
[2017-08-27] MEDS ORDERED: Amlodipine 5 MG TAB PER TUBE SCH (09:00)
[2017-08-27] MEDS ORDERED: Aspirin 325 MG TAB PER TUBE SCH (09:00)
[2017-08-27] MEDS: Amlodipine 10 MG TAB PER TUBE SCH (09:26)
[2017-08-27] MEDS: Losartan 25 MG TAB PER TUBE SCH (09:26)
[2017-08-27] MEDS: Famotidine/PF 20 mg/2ml Vial SLOW IVP SCH ×2 (09:28→20:51)
[2017-08-27] MEDS: Finasteride 5 MG TAB FS SCH (09:28)
[2017-08-27] MEDS: Levothyroxine Sodium 50 MCG TAB PER TUBE SCH (09:28)
[2017-08-27] MEDS: Tamsulosin HCl 0.4 MG CAP FS SCH (09:29)
[2017-08-27] MEDS: Sodium Chloride 0.9% 1,000 ML IV SCH (10:47)
--- NOTE | 2017-08-27 14:47 | PDOC.PN ---
- Subjective Encounter Start Date: 08/27/17 Encounter Start Time: 14:45 Subjective: thrashing in bed. daughter at bedside.Pt non verbal - Objective Resuscitation Status: Resuscitation Status DNR:Do Not Resuscitate MAR Reviewed: Yes Vital Signs & Weight: Vital Signs (12 hours) Temp Pulse Pulse Pulse Resp BP BP 08/27/17 14:09 98.6 F 82 22 H 08/27/17 12:05 98.6 F 82 22 H 08/27/17 09:56 82 72 151/80 H 08/27/17 09:26 88 131/101 H 08/27/17 08:02 98.9 F 88 22 H 08/27/17 08:00 98.6 F 82 22 H 08/27/17 04:00 98.0 F 71 18 BP BP BP Pulse Ox 08/27/17 14:09 164/97 H 93 L 08/27/17 12:05 164/97 H 93 L 08/27/17 09:56 166/88 H 08/27/17 09:26 08/27/17 08:02 131/101 H 98 08/27/17 08:00 08/27/17 04:00 197/84 H 94 L Weight Admit Weight 207 lb 3.752 oz Weight 193 lb 4.8 oz Most Recent Monitor Data Heart Rate from ECG 75 NIBP 153/85 NIBP BP-Mean 109 Respiration from ECG 16 SpO2 95 I&O: 08/26/17 08/27/17 08/28/17 06:59 06:59 06:59 Intake Total 3718 30 Balance 3718 30 Result Diagrams: 08/24/17 10:00 08/24/17 10:00 Radiology Reviewed by me: Yes (L MCA stroke ) Phys Exam - Physical Examination agiataed and moving around in bed HEENT: PERRLA, moist MMs, sclera anicteric, TM's clear, oral pharynx no lesions , 2+ tonsils Neck: no nodes, no JVD, supple, full ROM Respiratory: no wheezing, no rales, no rhonchi, clear to auscultation bilateral Cardiovascular: RRR, no significant murmur Gastrointestinal: soft, non-tender, no distention, positive bowel sounds PEG in place Musculoskeletal: no edema, pulses present moving R lef freely.difficult to assess d/t agitation Dx/Plan (1) Acute CVA (cerebrovascular accident) Code(s): I63.9 - CEREBRAL INFARCTION, UNSPECIFIED Status: Acute (2) BPH (benign prostatic hyperplasia) Code(s): N40.0 - BENIGN PROSTATIC HYPERPLASIA WITHOUT LOWER URINRY TRACT SYMP Status: Acute (3) Dementia Code(s): F03.90 - UNSPECIFIED DEMENTIA WITHOUT BEHAVIORAL DISTURBANCE Status: Acute (4) Hypertension Code(s): I10 - ESSENTIAL (PRIMARY) HYPERTENSION Status: Acute (5) Hypothyroidism Code(s): E03.9 - HYPOTHYROIDISM, UNSPECIFIED Status: Acute (6) Metabolic encephalopathy Code(s): G93.41 - METABOLIC ENCEPHALOPATHY Status: Acute (7) A-fib Code(s): I48.91 - UNSPECIFIED ATRIAL FIBRILLATION Status: Chronic - Plan plan discussed w/ family, PT/OT, marriage and family social worker, speech therapy, DVT proph w/ SCDs Start ASA,statin w PEG.restart home meds.Monitor BP -: Placement needed, -: no anticoagulation for now per Neurology d/t risk of hemorrhagic conversion -: Pt uninsured.Tube feeds * . Review of Systems - Review of Systems Other: due to encephalopathy unobtainable - Medications/Allergies Allergies/Adverse Reactions: Allergies Allergy/AdvReac Type Severity Reaction Status Date / Time No Known Allergies Allergy Unverified 08/22/17 15:07 Medications: Current Medications Acetaminophen (Tylenol) 650 mg [place] Q4H PRN PRN Reason: Headache/Fever or Pain Amlodipine Besylate (Norvasc) 10 mg PER TUBE DAILY [facility] Last Admin: 08/27/17 09:26 Dose: 10 mg Aspirin (Aspirin) 325 mg PER TUBE [facility] Atorvastatin Calcium (Lipitor) 20 mg PER TUBE [facility] Famotidine (Pepcid) 20 mg SLOW IVP Q12HR [facility] Last Admin: 08/27/17 09:28 Dose: Not Given Finasteride (Proscar) 5 mg FS DAILY [facility] Last Admin: 08/27/17 09:28 Dose: 5 mg Hydralazine HCl (Apresoline) 10 mg SLOW IVP Q6H PRN PRN Reason: Hypertension Last Admin: 08/26/17 05:38 Dose: 10 mg Levothyroxine Sodium (Synthroid) 50 mcg PER TUBE DAILY [facility] Last Admin: 08/27/17 09:28 Dose: 50 mcg Lorazepam (Ativan) 1 mg SLOW IVP Q6H PRN PRN Reason: Anxiety/Agitation Last Admin: 08/26/17 22:16 Dose: 1 mg Losartan Potassium (Cozaar) 100 mg PER TUBE DAILY [facility] Last Admin: 08/27/17 09:26 Dose: 100 mg Memantine (Namenda) 10 mg PER TUBE DAILY [facility] Last Admin: 08/27/17 09:27 Dose: 10 mg Sertraline HCl (Zoloft) 50 mg PER TUBE DAILY [facility] Last Admin: 08/27/17 09:27 Dose: 50 mg Sodium Chloride (Flush - Normal Saline) 10 ml IVF Q12HR [facility] Last Admin: 08/27/17 09:28 Dose: Not Given Sodium Chloride (Flush - Normal Saline) 10 ml IVF PRN PRN PRN Reason: Saline Flush Sterile Water (Water For Injection) 1.2 ml FS PRN PRN PRN Reason: GEODON RECONSTITUTION Tamsulosin HCl (Flomax) 0.8 mg FS DAILY [facility] Last Admin: 08/27/17 09:29 Dose: Not Given Ziprasidone (Geodon) 10 mg IM Q6H PRN PRN Reason: Agitation Last Admin: 08/25/17 21:47 Dose: 10 mg
--- NOTE | 2017-08-27 16:42 | PRG ---
DATE OF SERVICE: 08/27/2017 SUBJECTIVE: This is an 82-year-old with acute cerebrovascular accident and dysphagia. The patient underwent EGD and PEG tube placement done yesterday. He is on tube feeding. He is dimas erating tube feeding very well. He still very drowsy and not responding. RECOMMENDATIONS: 1. Continue tube feeding. 2. We will sign off from today. If any new problem, please call me back.
[2017-08-27] MEDS: Atorvastatin Calcium 20 MG TAB PER TUBE SCH (20:51)
[2017-08-27] MEDS: hydrALAZINE 20 MG/ML VIAL SLOW IVP PRN (20:52)
[2017-08-27] MEDS: Lorazepam 2 MG/ML VIAL SLOW IVP PRN (21:05)
[2017-08-28] MEDS: Ziprasidone 20 MG VIAL IM PRN (02:38)
[2017-08-28] MEDS: Acetaminophen 650 MG Suppository PR PRN ×2 (02:46→16:03)
[2017-08-28] MEDS: Lorazepam 2 MG/ML VIAL SLOW IVP PRN (05:09)
[2017-08-28 05:15] LABS: Anion Gap 10 mmol/L (10-20); BUN (Urea Nitrogen) 16 mg/dL (8.4-25.7); Calc. Creatinine Clearance 90 mL/min (70-130); Calcium 8.8 mg/dL (7.8-10.44); Carbon Dioxide 26 mmol/L (23-31); Chloride 112 mmol/L (98-107); Estimated GFR-MDRD Greater than 90; Glucose 154 mg/dL (83-110); Sodium 145 mmol/L (136-145)
[2017-08-28 05:17] LABS: Potassium 2.7 mmol/L (3.5-5.1)
[2017-08-28] MEDS: Losartan 25 MG TAB PER TUBE SCH (08:22)
[2017-08-28] MEDS: Aspirin 325 MG TAB PER TUBE SCH (08:22)
[2017-08-28] MEDS: Tamsulosin HCl 0.4 MG CAP FS SCH (08:22)
[2017-08-28] MEDS: Finasteride 5 MG TAB FS SCH (08:23)
[2017-08-28] MEDS: Amlodipine 10 MG TAB PER TUBE SCH (08:23)
[2017-08-28] MEDS: Levothyroxine Sodium 50 MCG TAB PER TUBE SCH (08:23)
[2017-08-28] MEDS: Famotidine/PF 20 mg/2ml Vial SLOW IVP SCH ×2 (08:24→20:44)
[2017-08-28 08:58] LABS: Magnesium 2.3 mg/dL (1.6-2.6); Phosphorus 2.6 mg/dL (2.3-4.7)
--- NOTE | 2017-08-28 12:48 | PDOC.PN ---
- Subjective Encounter Start Date: 08/28/17 Encounter Start Time: 12:46 Subjective: about the same. no distress but fidgety. -: grandson in room.care discussed - Objective Resuscitation Status: Resuscitation Status DNR:Do Not Resuscitate MAR Reviewed: Yes Vital Signs & Weight: Vital Signs (12 hours) Temp Pulse Pulse Resp BP BP BP 08/28/17 11:10 97.6 F 75 20 128/68 08/28/17 08:55 72 143/71 H 08/28/17 08:23 62 143/73 H 08/28/17 08:00 98.3 F 62 20 08/28/17 07:08 98.3 F 52 L 20 143/71 H 08/28/17 04:24 97.0 F L 90 20 137/65 08/28/17 01:07 Pulse Ox 08/28/17 11:10 92 L 08/28/17 08:55 08/28/17 08:23 08/28/17 08:00 08/28/17 07:08 95 08/28/17 04:24 92 L 08/28/17 01:07 94 L Weight Admit Weight 207 lb 3.752 oz Weight 197 lb 1.6 oz Most Recent Monitor Data Heart Rate from ECG 75 NIBP 153/85 NIBP BP-Mean 109 Respiration from ECG 16 SpO2 95 I&O: 08/27/17 08/28/17 08/29/17 06:59 06:59 06:59 Intake Total 3718 2697 1287 Balance 3718 2697 1287 Result Diagrams: 08/24/17 10:00 08/28/17 04:46 Additional Labs: Laboratory Tests 08/28/17 04:46 Phosphorus 2.6 Magnesium 2.3 Phys Exam - Physical Examination Constitutional: NAD awake and fidgeting w hands HEENT: PERRLA, moist MMs, sclera anicteric, oral pharynx no lesions Neck: no JVD Respiratory: no wheezing, no rales, no rhonchi, clear to auscultation bilateral Cardiovascular: no significant murmur Gastrointestinal: soft, non-tender, no distention, positive bowel sounds PEG & abdominal binder in place Musculoskeletal: no edema, pulses present Neurological: moves all 4 limbs not oriented.does not follow commands Skin: no rash Dx/Plan (1) Acute CVA (cerebrovascular accident) Code(s): I63.9 - CEREBRAL INFARCTION, UNSPECIFIED Status: Acute (2) BPH (benign prostatic hyperplasia) Code(s): N40.0 - BENIGN PROSTATIC HYPERPLASIA WITHOUT LOWER URINRY TRACT SYMP Status: Acute (3) Dementia Code(s): F03.90 - UNSPECIFIED DEMENTIA WITHOUT BEHAVIORAL DISTURBANCE Status: Acute (4) Hypertension Code(s): I10 - ESSENTIAL (PRIMARY) HYPERTENSION Status: Acute (5) Hypothyroidism Code(s): E03.9 - HYPOTHYROIDISM, UNSPECIFIED Status: Acute (6) Metabolic encephalopathy Code(s): G93.41 - METABOLIC ENCEPHALOPATHY Status: Acute (7) A-fib Code(s): I48.91 - UNSPECIFIED ATRIAL FIBRILLATION Status: Chronic Qualifiers: Atrial fibrillation type: paroxysmal Qualified Code(s): I48.0 - Paroxysmal atrial fibrillation (8) Hypokalemia Code(s): E87.6 - HYPOKALEMIA Status: Acute - Plan plan discussed w/ family, PT/OT, criminal justice social worker, speech therapy, out of bed/ ambulate, DVT proph w/SCDs Cont ASA,statin Via PEG -: tube feeds tolerated in boluses.monitor lytes -: check Potassium,Mag,Phos for re-feeding syndrome -: BP better controlled w restarting home meds.monitor -: awaiting Rehab placement.clinically stable * .NO AC per neurology for a-fib for now d/t risk of hemorrhagic conversion of infarct Review of Systems - Review of Systems Other: can not be obtained d/t encephalopathy due to stroke and dementia - Medications/Allergies Allergies/Adverse Reactions: Allergies Allergy/AdvReac Type Severity Reaction Status Date / Time No Known Allergies Allergy Unverified 08/22/17 15:07 Medications: Current Medications Acetaminophen (Tylenol) 650 mg [place] Q4H PRN PRN Reason: Headache/Fever or Pain Last Admin: 08/28/17 02:46 Dose: 650 mg Amlodipine Besylate (Norvasc) 10 mg PER TUBE DAILY [facility] Last Admin: 08/28/17 08:23 Dose: 10 mg Aspirin (Aspirin) 325 mg PER TUBE QAM-[facility] Last Admin: 08/28/17 08:22 Dose: 325 mg Atorvastatin Calcium (Lipitor) 20 mg PER TUBE HS [facility] Last Admin: 08/27/17 20:51 Dose: 20 mg Famotidine (Pepcid) 20 mg SLOW IVP Q12HR [facility] Last Admin: 08/28/17 08:24 Dose: 20 mg Finasteride (Proscar) 5 mg FS DAILY [facility] Last Admin: 08/28/17 08:23 Dose: 5 mg Hydralazine HCl (Apresoline) 10 mg SLOW IVP Q6H PRN PRN Reason: Hypertension Last Admin: 08/27/17 20:52 Dose: 10 mg Levothyroxine Sodium (Synthroid) 50 mcg PER TUBE DAILY [facility] Last Admin: 08/28/17 08:23 Dose: 50 mcg Lorazepam (Ativan) 1 mg SLOW IVP Q6H PRN PRN Reason: Anxiety/Agitation Last Admin: 08/28/17 05:09 Dose: 1 mg Losartan Potassium (Cozaar) 100 mg PER TUBE DAILY [facility] Last Admin: 08/28/17 08:22 Dose: 100 mg Memantine (Namenda) 10 mg PER TUBE DAILY [facility] Last Admin: 08/28/17 08:23 Dose: 10 mg Potassium Chloride (Klor-Con) 40 meq PER TUBE 0700,1200 [facility] Stop: 08/28/17 13:00 Last Admin: 08/28/17 12:19 Dose: 40 meq Sertraline HCl (Zoloft) 50 mg PER TUBE DAILY [facility] Last Admin: 08/28/17 08:23 Dose: 50 mg Sodium Chloride (Flush - Normal Saline) 10 ml IVF Q12HR [facility] Last Admin: 08/28/17 05:10 Dose: 10 ml Sodium Chloride (Flush - Normal Saline) 10 ml IVF PRN PRN PRN Reason: Saline Flush Last Admin: 08/28/17 08:24 Dose: 10 ml Sterile Water (Water For Injection) 1.2 ml FS PRN PRN PRN Reason: GEODON RECONSTITUTION Tamsulosin HCl (Flomax) 0.8 mg FS DAILY [facility] Last Admin: 08/28/17 08:22 Dose: 0.8 mg Ziprasidone (Geodon) 10 mg IM Q6H PRN PRN Reason: Agitation Last Admin: 08/28/17 02:38 Dose: 10 mg
[2017-08-28] MEDS: Atorvastatin Calcium 20 MG TAB PER TUBE SCH (20:44)
[2017-08-29] MEDS: hydrALAZINE 20 MG/ML VIAL SLOW IVP PRN (04:30)
[2017-08-29] MEDS: Acetaminophen 650 MG Suppository PR PRN (04:30)
[2017-08-29 05:08] LABS: Anion Gap 8 mmol/L (10-20); BUN (Urea Nitrogen) 19 mg/dL (8.4-25.7); Calc. Creatinine Clearance 85 mL/min (70-130); Calcium 8.8 mg/dL (7.8-10.44); Carbon Dioxide 27 mmol/L (23-31); Chloride 113 mmol/L (98-107); Estimated GFR-MDRD 86; Glucose 106 mg/dL (83-110); Magnesium 2.4 mg/dL (1.6-2.6); Phosphorus 2.8 mg/dL (2.3-4.7); Potassium 3.4 mmol/L (3.5-5.1); Sodium 145 mmol/L (136-145)
[2017-08-29] MEDS: Aspirin 325 MG TAB PER TUBE SCH (09:44)
[2017-08-29] MEDS: Famotidine/PF 20 mg/2ml Vial SLOW IVP SCH ×3 (09:46→20:12)
[2017-08-29] MEDS: Amlodipine 10 MG TAB PER TUBE SCH (09:46)
[2017-08-29] MEDS: Finasteride 5 MG TAB FS SCH (09:47)
[2017-08-29] MEDS: Levothyroxine Sodium 50 MCG TAB PER TUBE SCH (09:47)
[2017-08-29] MEDS: Losartan 25 MG TAB PER TUBE SCH (09:47)
[2017-08-29] MEDS: Tamsulosin HCl 0.4 MG CAP FS SCH (09:48)
--- NOTE | 2017-08-29 11:21 | PDOC.PN ---
- Subjective Encounter Start Date: 08/29/17 Encounter Start Time: 11:20 Subjective: walked a little bit in room today -: care discussed w daughter & plan updated - Objective Resuscitation Status: Resuscitation Status DNR:Do Not Resuscitate MAR Reviewed: Yes Vital Signs & Weight: Vital Signs (12 hours) Temp Pulse Pulse Pulse Resp BP BP 08/29/17 09:46 95 131/87 08/29/17 08:17 85 101 H 194/83 H 08/29/17 08:00 98.6 F 95 20 08/29/17 07:44 98.6 F 95 20 08/29/17 06:31 08/29/17 05:00 100.1 F H 89 22 H 08/29/17 04:30 84 210/102 H BP BP Pulse Ox 08/29/17 09:46 08/29/17 08:17 120/82 08/29/17 08:00 93 L 08/29/17 07:44 131/87 93 L 08/29/17 06:31 135/80 08/29/17 05:00 133/58 L 96 08/29/17 04:30 Weight Admit Weight 207 lb 3.752 oz Weight 196 lb 12.8 oz Most Recent Monitor Data Heart Rate from ECG 75 NIBP 153/85 NIBP BP-Mean 109 Respiration from ECG 16 SpO2 95 I&O: 08/28/17 08/29/17 08/30/17 06:59 06:59 06:59 Intake Total 2697 3967 Balance 2697 3967 Result Diagrams: 08/24/17 10:00 08/29/17 04:41 Phys Exam - Physical Examination Constitutional: NAD moving hands and legs lying in bed HEENT: PERRLA, moist MMs, sclera anicteric Neck: no JVD Respiratory: no wheezing, no rales, no rhonchi, clear to auscultation bilateral Cardiovascular: irregular Gastrointestinal: soft, non-tender, no distention, positive bowel sounds Musculoskeletal: no edema, pulses present Neurological: moves all 4 limbs doesnot follow commands. Psychiatric: normal affect Deviation from normal: not orinted ,largely aphasic Skin: no rash Dx/Plan (1) Acute CVA (cerebrovascular accident) Code(s): I63.9 - CEREBRAL INFARCTION, UNSPECIFIED Status: Acute (2) BPH (benign prostatic hyperplasia) Code(s): N40.0 - BENIGN PROSTATIC HYPERPLASIA WITHOUT LOWER URINRY TRACT SYMP Status: Acute (3) Dementia Code(s): F03.90 - UNSPECIFIED DEMENTIA WITHOUT BEHAVIORAL DISTURBANCE Status: Acute (4) Hypertension Code(s): I10 - ESSENTIAL (PRIMARY) HYPERTENSION Status: Acute (5) Hypothyroidism Code(s): E03.9 - HYPOTHYROIDISM, UNSPECIFIED Status: Acute (6) Metabolic encephalopathy Code(s): G93.41 - METABOLIC ENCEPHALOPATHY Status: Acute (7) A-fib Code(s): I48.91 - UNSPECIFIED ATRIAL FIBRILLATION Status: Chronic Qualifiers: Atrial fibrillation type: paroxysmal Qualified Code(s): I48.0 - Paroxysmal atrial fibrillation (8) Hypokalemia Code(s): E87.6 - HYPOKALEMIA Status: Acute - Plan plan discussed w/ family, PT/OT, community mental health social worker, out of bed/ambulate, DVT proph w/SCDs repace and recheck K.tolerating TF boluses -: cont PT,OT,DOOR MANAGER.awaiting some mo rehab approval but uninsured -: Discussed w family that he most likley w/b denied & will need to come home -: cont ASA,statin.no AC d/t recent CVA & risk of hemorrhage -: supportive care. am labs * . Review of Systems - Review of Systems Other: can not be obtained due to Stroke and [id number] - Medications/Allergies Allergies/Adverse Reactions: Allergies Allergy/AdvReac Type Severity Reaction Status Date / Time No Known Allergies Allergy Unverified 08/22/17 15:07 Medications: Current Medications Acetaminophen (Tylenol) 650 mg [place] Q4H PRN PRN Reason: Headache/Fever or Pain Last Admin: 08/29/17 04:30 Dose: 650 mg Amlodipine Besylate (Norvasc) 10 mg PER TUBE DAILY [facility] Last Admin: 08/29/17 09:46 Dose: 10 mg Aspirin (Aspirin) 325 mg PER TUBE [facility] Last Admin: 08/29/17 09:44 Dose: 325 mg Atorvastatin Calcium (Lipitor) 20 mg PER TUBE HS [facility] Last Admin: 08/28/17 20:44 Dose: 20 mg Famotidine (Pepcid) 20 mg SLOW IVP Q12HR [facility] Last Admin: 08/29/17 09:46 Dose: 20 mg Finasteride (Proscar) 5 mg FS DAILY [facility] Last Admin: 08/29/17 09:47 Dose: 5 mg Hydralazine HCl (Apresoline) 10 mg SLOW IVP Q6H PRN PRN Reason: Hypertension Last Admin: 08/29/17 04:30 Dose: 10 mg Levothyroxine Sodium (Synthroid) 50 mcg PER TUBE DAILY [facility] Last Admin: 08/29/17 09:47 Dose: 50 mcg Lorazepam (Ativan) 1 mg SLOW IVP Q6H PRN PRN Reason: Anxiety/Agitation Last Admin: 08/28/17 05:09 Dose: 1 mg Losartan Potassium (Cozaar) 100 mg PER TUBE DAILY [facility] Last Admin: 08/29/17 09:47 Dose: 100 mg Memantine (Namenda) 10 mg PER TUBE DAILY [facility] Last Admin: 08/29/17 09:48 Dose: 10 mg Potassium Chloride (Klor-Con) 40 meq PER TUBE NOW [facility] Stop: 08/29/17 12:00 Last Admin: 08/29/17 09:46 Dose: 40 meq Sertraline HCl (Zoloft) 50 mg PER TUBE DAILY [facility] Last Admin: 08/29/17 09:48 Dose: 50 mg Sodium Chloride (Flush - Normal Saline) 10 ml IVF Q12HR [facility] Last Admin: 08/29/17 09:48 Dose: 10 ml Sodium Chloride (Flush - Normal Saline) 10 ml IVF PRN PRN PRN Reason: Saline Flush Last Admin: 08/28/17 08:24 Dose: 10 ml Sterile Water (Water For Injection) 1.2 ml FS PRN PRN PRN Reason: GEODON RECONSTITUTION Tamsulosin HCl (Flomax) 0.8 mg FS DAILY [facility] Last Admin: 08/29/17 09:48 Dose: 0.8 mg Ziprasidone (Geodon) 10 mg IM Q6H PRN PRN Reason: Agitation Last Admin: 08/28/17 02:38 Dose: 10 mg
[2017-08-29] MEDS: Atorvastatin Calcium 20 MG TAB PER TUBE SCH (20:07)
[2017-08-30] MEDS: Ziprasidone 20 MG VIAL IM PRN (00:22)
[2017-08-30] MEDS: Lorazepam 2 MG/ML VIAL SLOW IVP PRN (03:05)
[2017-08-30] MEDS: Levothyroxine Sodium 50 MCG TAB PER TUBE SCH (04:59)
[2017-08-30 05:04] LABS: Anion Gap 10 mmol/L (10-20); BUN (Urea Nitrogen) 18 mg/dL (8.4-25.7); Calc. Creatinine Clearance 86 mL/min (70-130); Calcium 8.8 mg/dL (7.8-10.44); Carbon Dioxide 24 mmol/L (23-31); Chloride 112 mmol/L (98-107); Estimated GFR-MDRD 87; Glucose 132 mg/dL (83-110); Magnesium 2.4 mg/dL (1.6-2.6); Phosphorus 3.3 mg/dL (2.3-4.7); Potassium 3.3 mmol/L (3.5-5.1); Sodium 143 mmol/L (136-145)
[2017-08-30] MEDS ORDERED: Artificial Tears 18 DROP/0.9 ML EA EYE PRN (09:27)
[2017-08-30] MEDS: Amlodipine 10 MG TAB PER TUBE SCH (09:45)
[2017-08-30] MEDS: Aspirin 325 MG TAB PER TUBE SCH (09:45)
[2017-08-30] MEDS: Famotidine 20 MG TAB PER TUBE SCH ×2 (09:45→21:18)
[2017-08-30] MEDS: Finasteride 5 MG TAB FS SCH (09:46)
[2017-08-30] MEDS: Losartan 25 MG TAB PER TUBE SCH (09:46)
[2017-08-30] MEDS: Tamsulosin HCl 0.4 MG CAP FS SCH (09:47)
[2017-08-30] MEDS: Famotidine/PF 20 mg/2ml Vial SLOW IVP SCH (10:16)
--- NOTE | 2017-08-30 13:38 | PDOC.PN ---
- Subjective Encounter Start Date: 08/30/17 Encounter Start Time: 13:36 Subjective: very fidgety and trying to get out of bed. -: using both legs and arms.aphaisc,confused - Objective Resuscitation Status: Resuscitation Status DNR:Do Not Resuscitate MAR Reviewed: Yes Vital Signs & Weight: Vital Signs (12 hours) Temp Pulse Resp BP BP Pulse Ox 08/30/17 10:30 97.9 F 73 18 93 L 08/30/17 09:45 101 H 155/83 H 08/30/17 08:00 97.9 F 101 H 18 93 L 08/30/17 04:11 97.9 F 101 H 18 155/83 H 95 Weight Admit Weight 207 lb 3.752 oz Weight 196 lb 4.8 oz Most Recent Monitor Data Heart Rate from ECG 75 NIBP 153/85 NIBP BP-Mean 109 Respiration from ECG 16 SpO2 95 I&O: 08/29/17 08/30/17 08/31/17 06:59 06:59 06:59 Intake Total 3967 3420 774 Balance 3967 3420 774 Result Diagrams: 08/24/17 10:00 08/30/17 04:34 Phys Exam - Physical Examination Constitutional: NAD restless & getteing out of bed HEENT: PERRLA, moist MMs, sclera anicteric Neck: no JVD, full ROM Respiratory: no wheezing, no rales, no rhonchi, clear to auscultation bilateral Cardiovascular: no significant murmur, no rub, gallop, irregular Gastrointestinal: soft, non-tender, no distention, positive bowel sounds Musculoskeletal: no edema, pulses present Neurological: moves all 4 limbs aphasia Psychiatric: normal affect, A&O x 3 Skin: no rash Dx/Plan (1) Acute CVA (cerebrovascular accident) Code(s): I63.9 - CEREBRAL INFARCTION, UNSPECIFIED Status: Acute (2) BPH (benign prostatic hyperplasia) Code(s): N40.0 - BENIGN PROSTATIC HYPERPLASIA WITHOUT LOWER URINRY TRACT SYMP Status: Acute (3) Dementia Code(s): F03.90 - UNSPECIFIED DEMENTIA WITHOUT BEHAVIORAL DISTURBANCE Status: Acute (4) Hypertension Code(s): I10 - ESSENTIAL (PRIMARY) HYPERTENSION Status: Acute (5) Hypothyroidism Code(s): E03.9 - HYPOTHYROIDISM, UNSPECIFIED Status: Acute (6) Metabolic encephalopathy Code(s): G93.41 - METABOLIC ENCEPHALOPATHY Status: Acute (7) A-fib Code(s): I48.91 - UNSPECIFIED ATRIAL FIBRILLATION Status: Chronic Qualifiers: Atrial fibrillation type: paroxysmal Qualified Code(s): I48.0 - Paroxysmal atrial fibrillation (8) Hypokalemia Code(s): E87.6 - HYPOKALEMIA Status: Acute - Plan plan discussed w/ family awaitng rehab placement.uninsured,might need to be DCed home -: Cont ASA,statin. -: replace & recheck lytes prn on TF.tolerating feeds -: cont OT,PT,TACK CUTTER. -: OOB * . Review of Systems - Review of Systems Other: unobtainable due to encephalopathy,dementia,apahsia - Medications/Allergies Allergies/Adverse Reactions: Allergies Allergy/AdvReac Type Severity Reaction Status Date / Time No Known Allergies Allergy Unverified 08/22/17 15:07 Medications: Current Medications Acetaminophen (Tylenol) 650 mg [place] Q4H PRN PRN Reason: Headache/Fever or Pain Last Admin: 08/29/17 04:30 Dose: 650 mg Amlodipine Besylate (Norvasc) 10 mg PER TUBE DAILY [facility] Last Admin: 08/30/17 09:45 Dose: 10 mg Artificial Tears (Tears Naturale) 0 drop EA EYE PRN PRN PRN Reason: DRY EYES Aspirin (Aspirin) 325 mg PER TUBE [facility]AM[facility] Last Admin: 08/30/17 09:45 Dose: 325 mg Atorvastatin Calcium (Lipitor) 20 mg PER TUBE HS [facility] Last Admin: 08/29/17 20:07 Dose: 20 mg Famotidine (Pepcid) 20 mg PER TUBE BID [facility] Last Admin: 08/30/17 09:45 Dose: 20 mg Finasteride (Proscar) 5 mg FS DAILY [facility] Last Admin: 08/30/17 09:46 Dose: 5 mg Hydralazine HCl (Apresoline) 10 mg SLOW IVP Q6H PRN PRN Reason: Hypertension Last Admin: 08/29/17 04:30 Dose: 10 mg Levothyroxine Sodium (Synthroid) 50 mcg PER TUBE 0600 [facility] Last Admin: 08/30/17 04:59 Dose: 50 mcg Lorazepam (Ativan) 1 mg SLOW IVP Q6H PRN PRN Reason: Anxiety/Agitation Last Admin: 08/30/17 03:05 Dose: 1 mg Losartan Potassium (Cozaar) 100 mg PER TUBE DAILY [facility] Last Admin: 08/30/17 09:46 Dose: 100 mg Memantine (Namenda) 10 mg PER TUBE DAILY [facility] Last Admin: 08/30/17 09:46 Dose: 10 mg Sertraline HCl (Zoloft) 50 mg PER TUBE DAILY [facility] Last Admin: 08/30/17 09:46 Dose: 50 mg Sodium Chloride (Flush - Normal Saline) 10 ml IVF Q12HR [facility] Last Admin: 08/30/17 09:47 Dose: Not Given Sodium Chloride (Flush - Normal Saline) 10 ml IVF PRN PRN PRN Reason: Saline Flush Last Admin: 08/28/17 08:24 Dose: 10 ml Sterile Water (Water For Injection) 1.2 ml FS PRN PRN PRN Reason: GEODON RECONSTITUTION Tamsulosin HCl (Flomax) 0.8 mg FS DAILY [facility] Last Admin: 08/30/17 09:47 Dose: 0.8 mg Ziprasidone (Geodon) 10 mg IM Q6H PRN PRN Reason: Agitation Last Admin: 08/30/17 00:22 Dose: 10 mg
[2017-08-30] MEDS: Atorvastatin Calcium 20 MG TAB PER TUBE SCH (21:18)
[2017-08-31 05:14] LABS: Anion Gap 10 mmol/L (10-20); BUN (Urea Nitrogen) 18 mg/dL (8.4-25.7); Calc. Creatinine Clearance 86 mL/min (70-130); Calcium 8.4 mg/dL (7.8-10.44); Carbon Dioxide 25 mmol/L (23-31); Chloride 109 mmol/L (98-107); Estimated GFR-MDRD 89; Glucose 170 mg/dL (83-110); Magnesium 2.4 mg/dL (1.6-2.6); Phosphorus 3.2 mg/dL (2.3-4.7); Potassium 3.6 mmol/L (3.5-5.1); Sodium 140 mmol/L (136-145)
[2017-08-31] MEDS: Ziprasidone 20 MG VIAL IM PRN ×2 (05:49→12:58)
[2017-08-31] MEDS: Sterile Water 10 ML VIAL FS PRN (05:49)
[2017-08-31] MEDS: Levothyroxine Sodium 50 MCG TAB PER TUBE SCH (08:20)
[2017-08-31] MEDS: Amlodipine 10 MG TAB PER TUBE SCH (08:21)
[2017-08-31] MEDS: Aspirin 325 MG TAB PER TUBE SCH (08:21)
[2017-08-31] MEDS: Losartan 25 MG TAB PER TUBE SCH (08:22)
[2017-08-31] MEDS: Finasteride 5 MG TAB FS SCH (08:22)
[2017-08-31] MEDS: Famotidine 20 MG TAB PER TUBE SCH ×2 (08:22→20:54)
[2017-08-31] MEDS: Tamsulosin HCl 0.4 MG CAP FS SCH (08:24)
[2017-08-31] MEDS ORDERED: Diabetic Tussin 200 MG/10 ML UDCUP PER TUBE SCH (10:21)
[2017-08-31] MEDS: Diabetic Tussin 200 MG/10 ML UDCUP PER TUBE SCH ×2 (10:42→20:54)
--- NOTE | 2017-08-31 11:44 | PDOC.PN ---
- Subjective Encounter Start Date: 08/31/17 Encounter Start Time: 11:43 Subjective: family c/o more cough & phlegmn - Objective Resuscitation Status: Resuscitation Status DNR:Do Not Resuscitate MAR Reviewed: Yes Vital Signs & Weight: Vital Signs (12 hours) Temp Pulse Resp BP BP BP Pulse Ox 08/31/17 10:58 98.2 F 82 20 113/51 L 95 08/31/17 08:21 102 H 146/71 H 08/31/17 08:00 97.8 F 102 H 18 98 08/31/17 07:56 97.8 F 102 H 18 146/71 H 98 08/31/17 04:40 98.0 F 67 20 140/60 20 L 08/31/17 04:00 97 08/31/17 00:15 98.4 F 75 20 144/74 H 96 Weight Admit Weight 207 lb 3.752 oz Weight 210 lb 14.4 oz Most Recent Monitor Data Heart Rate from ECG 75 NIBP 153/85 NIBP BP-Mean 109 Respiration from ECG 16 SpO2 95 I&O: 08/30/17 08/31/17 09/01/17 06:59 06:59 06:59 Intake Total 3420 4666 387 Balance 3420 4666 387 Result Diagrams: 08/24/17 10:00 08/31/17 04:35 Phys Exam - Physical Examination Constitutional: NAD HEENT: PERRLA, moist MMs, sclera anicteric, oral pharynx no lesions Neck: no nodes, no JVD, supple, full ROM Respiratory: no rales, no rhonchi, wheezing present, clear to auscultation bilateral Cardiovascular: no significant murmur, irregular Gastrointestinal: soft, non-tender, no distention, positive bowel sounds Musculoskeletal: no edema, pulses present Neurological: moves all 4 limbs Skin: no rash Dx/Plan (1) Acute CVA (cerebrovascular accident) Code(s): I63.9 - CEREBRAL INFARCTION, UNSPECIFIED Status: Acute Comment: s/ p PEG placement for inability to swollow (2) BPH (benign prostatic hyperplasia) Code(s): N40.0 - BENIGN PROSTATIC HYPERPLASIA WITHOUT LOWER URINRY TRACT SYMP Status: Acute (3) Dementia Code(s): F03.90 - UNSPECIFIED DEMENTIA WITHOUT BEHAVIORAL DISTURBANCE Status: Acute (4) Hypertension Code(s): I10 - ESSENTIAL (PRIMARY) HYPERTENSION Status: Acute (5) Hypothyroidism Code(s): E03.9 - HYPOTHYROIDISM, UNSPECIFIED Status: Acute (6) Metabolic encephalopathy Code(s): G93.41 - METABOLIC ENCEPHALOPATHY Status: Acute (7) A-fib Code(s): I48.91 - UNSPECIFIED ATRIAL FIBRILLATION Status: Chronic Qualifiers: Atrial fibrillation type: paroxysmal Qualified Code(s): I48.0 - Paroxysmal atrial fibrillation (8) Hypokalemia Code(s): E87.6 - HYPOKALEMIA Status: Acute - Plan PT/OT, speech therapy, DVT proph w/SCDs add Mucinex w intermittent suction.discussed w nursing -: high risk of developing PNA and aspiration due to stroke -: awiting reha approval.if declined,will go home -: cont ASA,statin for now.BP controlled -: am labs.add nebs prn for mild wheezing on exam * .no AC due to risk of hemorrhagic conversion.will re-address w neurology prior to DC * HD stable. * fall precautions Review of Systems - Review of Systems Other: unobtainable due to encephalopathy due to stroke & dementia - Medications/Allergies Allergies/Adverse Reactions: Allergies Allergy/AdvReac Type Severity Reaction Status Date / Time No Known Allergies Allergy Unverified 08/22/17 15:07 Medications: Current Medications Acetaminophen (Tylenol) 650 mg AR Q4H PRN PRN Reason: Headache/Fever or Pain Last Admin: 08/29/17 04:30 Dose: 650 mg Amlodipine Besylate (Norvasc) 10 mg PER TUBE DAILY [facility] Last Admin: 08/31/17 08:21 Dose: 10 mg Artificial Tears (Tears Naturale) 0 drop EA EYE PRN PRN PRN Reason: DRY EYES Aspirin (Aspirin) 325 mg PER TUBE [facility] Last Admin: 08/31/17 08:21 Dose: 325 mg Atorvastatin Calcium (Lipitor) 20 mg PER TUBE HS [facility] Last Admin: 08/30/17 21:18 Dose: 20 mg Famotidine (Pepcid) 20 mg PER TUBE BID [facility] Last Admin: 08/31/17 08:22 Dose: 20 mg Finasteride (Proscar) 5 mg FS DAILY [facility] Last Admin: 08/31/17 08:22 Dose: 5 mg Guaifenesin (Robitussin Sf) 600 mg PER TUBE BID [facility] Guaifenesin (Robitussin Sf) 600 mg PER TUBE 1030 [facility] Stop: 08/31/17 12:00 Last Admin: 08/31/17 10:42 Dose: 600 mg Hydralazine HCl (Apresoline) 10 mg SLOW IVP Q6H PRN PRN Reason: Hypertension Last Admin: 08/29/17 04:30 Dose: 10 mg Levothyroxine Sodium (Synthroid) 50 mcg PER TUBE 0600 [facility] Last Admin: 08/31/17 08:20 Dose: 50 mcg Lorazepam (Ativan) 1 mg SLOW IVP Q6H PRN PRN Reason: Anxiety/Agitation Last Admin: 08/30/17 03:05 Dose: 1 mg Losartan Potassium (Cozaar) 100 mg PER TUBE DAILY [facility] Last Admin: 08/31/17 08:22 Dose: 100 mg Memantine (Namenda) 10 mg PER TUBE DAILY [facility] Last Admin: 08/31/17 08:23 Dose: 10 mg Sertraline HCl (Zoloft) 50 mg PER TUBE DAILY [facility] Last Admin: 08/31/17 08:24 Dose: 50 mg Sodium Chloride (Flush - Normal Saline) 10 ml IVF Q12HR [facility] Last Admin: 08/31/17 07:32 Dose: Not Given Sodium Chloride (Flush - Normal Saline) 10 ml IVF PRN PRN PRN Reason: Saline Flush Last Admin: 08/28/17 08:24 Dose: 10 ml Sterile Water (Water For Injection) 1.2 ml FS PRN PRN PRN Reason: GEODON RECONSTITUTION Last Admin: 08/31/17 05:49 Dose: 1.2 ml Tamsulosin HCl (Flomax) 0.8 mg FS DAILY [facility] Last Admin: 08/31/17 08:24 Dose: 0.8 mg Ziprasidone (Geodon) 10 mg IM Q6H PRN PRN Reason: Agitation Last Admin: 08/31/17 05:49 Dose: 10 mg
[2017-08-31] MEDS ORDERED: Sterile Water 10 ML ONE (12:54)
[2017-08-31] MEDS: Atorvastatin Calcium 20 MG TAB PER TUBE SCH (20:54)
[2017-09-01] MEDS: Levothyroxine Sodium 50 MCG TAB PER TUBE SCH (05:24)
[2017-09-01 05:41] LABS: Anion Gap 10 mmol/L (10-20); BUN (Urea Nitrogen) 16 mg/dL (8.4-25.7); Calc. Creatinine Clearance 100 mL/min (70-130); Calcium 8.4 mg/dL (7.8-10.44); Carbon Dioxide 24 mmol/L (23-31); Chloride 107 mmol/L (98-107); Estimated GFR-MDRD Greater than 90; Glucose 117 mg/dL (83-110); Magnesium 2.3 mg/dL (1.6-2.6); Phosphorus 3.4 mg/dL (2.3-4.7); Potassium 3.8 mmol/L (3.5-5.1); Sodium 137 mmol/L (136-145)
--- NOTE | 2017-09-01 08:04 | PDOC.PN ---
- Subjective Encounter Start Date: 09/01/17 Encounter Start Time: 08:02 Subjective: nonverbal - Objective Resuscitation Status: Resuscitation Status DNR:Do Not Resuscitate MAR Reviewed: Yes Vital Signs & Weight: Vital Signs (12 hours) Temp Pulse Resp BP Pulse Ox 09/01/17 03:12 97.8 F 67 16 134/58 L 97 08/31/17 23:18 95.9 F L 75 16 130/78 94 L 08/31/17 20:54 95.9 F L 75 16 94 L Weight Admit Weight 207 lb 3.752 oz Weight 210 lb Most Recent Monitor Data Heart Rate from ECG 75 NIBP 153/85 NIBP BP-Mean 109 Respiration from ECG 16 SpO2 95 I&O: 08/31/17 09/01/17 09/02/17 06:59 06:59 06:59 Intake Total 4666 5159 Balance 4666 5159 Result Diagrams: 08/24/17 10:00 09/01/17 05:12 Phys Exam - Physical Examination Neck: no JVD Respiratory: clear to auscultation bilateral Cardiovascular: RRR, no significant murmur Gastrointestinal: soft, positive bowel sounds PEG Musculoskeletal: no edema R hemiplgia, aphasia Dx/Plan (1) Hemiplegia affecting dominant side Code(s): G81.90 - HEMIPLEGIA, UNSPECIFIED AFFECTING UNSPECIFIED SIDE Status: Acute (2) Acute CVA (cerebrovascular accident) Code(s): I63.9 - CEREBRAL INFARCTION, UNSPECIFIED Status: Acute Comment: s/ p PEG placement for inability to swollow (3) Hypertension Code(s): I10 - ESSENTIAL (PRIMARY) HYPERTENSION Status: Chronic Qualifiers: Hypertension type: essential hypertension Qualified Code(s): I10 - Essential (primary) hypertension (4) Hypothyroidism Code(s): E03.9 - HYPOTHYROIDISM, UNSPECIFIED Status: Chronic Qualifiers: Hypothyroidism type: unspecified Qualified Code(s): E03.9 - Hypothyroidism , unspecified (5) A-fib Code(s): I48.91 - UNSPECIFIED ATRIAL FIBRILLATION Status: Chronic Qualifiers: Atrial fibrillation type: paroxysmal Qualified Code(s): I48.0 - Paroxysmal atrial fibrillation - Plan plan discussed w/ family, PT/OT cont ASA, statin, ARB, flomax -: tube feedings -: DC planning * .
[2017-09-01] MEDS: Aspirin 325 MG TAB PER TUBE SCH (09:21)
[2017-09-01] MEDS: Amlodipine 10 MG TAB PER TUBE SCH (09:21)
[2017-09-01] MEDS: Finasteride 5 MG TAB FS SCH (09:22)
[2017-09-01] MEDS: Famotidine 20 MG TAB PER TUBE SCH ×2 (09:22→20:45)
[2017-09-01] MEDS: Diabetic Tussin 200 MG/10 ML UDCUP PER TUBE SCH ×3 (09:22→20:45)
[2017-09-01] MEDS: Losartan 25 MG TAB PER TUBE SCH (09:23)
[2017-09-01] MEDS: Tamsulosin HCl 0.4 MG CAP FS SCH (09:23)
[2017-09-01 15:17] VITALS: BMI 36.0
[2017-09-01 16:18] LABS: HIV (1/2) Antibody/Antigen Non-Reactive (NonReactive); HIV 1/2 INDEX 0.14 S/CO (<1.00); Hep B Surf Ag Non-Reactive S/CO (NonReactive); Hep C IgG Ab Non-Reactive (NonReactive); Hep C Index 0.15 S/CO (0-0.79)
[2017-09-01] MEDS: Atorvastatin Calcium 20 MG TAB PER TUBE SCH (20:45)
[2017-09-02] MEDS: Ziprasidone 20 MG VIAL IM PRN (03:50)
[2017-09-02] MEDS: Sterile Water 10 ML VIAL FS PRN (03:52)
[2017-09-02 06:28] LABS: Anion Gap 10 mmol/L (10-20); BUN (Urea Nitrogen) 14 mg/dL (8.4-25.7); Calc. Creatinine Clearance 100 mL/min (70-130); Calcium 8.6 mg/dL (7.8-10.44); Carbon Dioxide 27 mmol/L (23-31); Chloride 104 mmol/L (98-107); Estimated GFR-MDRD Greater than 90; Glucose 111 mg/dL (83-110); Magnesium 2.2 mg/dL (1.6-2.6); Phosphorus 3.3 mg/dL (2.3-4.7); Potassium 3.7 mmol/L (3.5-5.1); Sodium 137 mmol/L (136-145)
[2017-09-02] MEDS: Levothyroxine Sodium 50 MCG TAB PER TUBE SCH (06:46)
--- NOTE | 2017-09-02 08:31 | RAD ---
PORTABLE AP ABDOMEN: Date: 09-02-17 History: Evaluate placement of gastrostomy tube. FINDINGS: A portion of the gastrostomy tube is excluded from view. However, there is radiopaque tubing overlyin g the lower chest region with contrast seen in what likely represents decompressed stomach. This is i ncompletely evaluated on this exam. Bowel gas pattern is nonspecific. Multilevel degenerative changes are seen in the spine. Phleboliths overlie the left hemipelvis. No suspicious calcifications are dereck ntified. IMPRESSION: Contrast in the epigastric region which appears to represent contrast within the decompressed stomach . This is not well evaluated on this exam. POS: ONELIA
--- NOTE | 2017-09-02 10:49 | PDOC.PN ---
- Subjective Encounter Start Date: 09/02/17 Encounter Start Time: 10:48 Subjective: awake, nonverbal - Objective Resuscitation Status: Resuscitation Status DNR:Do Not Resuscitate MAR Reviewed: Yes Vital Signs & Weight: Vital Signs (12 hours) Temp Pulse Resp BP Pulse Ox 09/02/17 09:00 97.8 F 61 21 H 113/54 L 93 L 09/02/17 08:08 97.8 F 61 21 H 113/54 L 93 L 09/02/17 08:00 97.8 F 61 21 H 93 L 09/02/17 05:10 97.4 F L 72 16 131/74 95 09/01/17 23:45 97.6 F 75 16 153/93 H 97 Weight Admit Weight 207 lb 3.752 oz Weight 211 lb 9.6 oz Most Recent Monitor Data Heart Rate from ECG 75 NIBP 153/85 NIBP BP-Mean 109 Respiration from ECG 16 SpO2 95 I&O: 09/01/17 09/02/17 09/03/17 06:59 06:59 06:59 Intake Total 5159 2270 Balance 5159 2270 Result Diagrams: 08/24/17 10:00 09/02/17 05:42 Phys Exam - Physical Examination Neck: no JVD Respiratory: clear to auscultation bilateral Cardiovascular: RRR, no significant murmur Gastrointestinal: soft, non-tender, positive bowel sounds PEG Musculoskeletal: edema present Dx/Plan (1) Hemiplegia affecting dominant side Code(s): G81.90 - HEMIPLEGIA, UNSPECIFIED AFFECTING UNSPECIFIED SIDE Status: Acute (2) Acute CVA (cerebrovascular accident) Code(s): I63.9 - CEREBRAL INFARCTION, UNSPECIFIED Status: Acute Comment: s/ p PEG placement for inability to swollow (3) Hypertension Code(s): I10 - ESSENTIAL (PRIMARY) HYPERTENSION Status: Chronic Qualifiers: Hypertension type: essential hypertension Qualified Code(s): I10 - Essential (primary) hypertension (4) Hypothyroidism Code(s): E03.9 - HYPOTHYROIDISM, UNSPECIFIED Status: Chronic Qualifiers: Hypothyroidism type: unspecified Qualified Code(s): E03.9 - Hypothyroidism , unspecified (5) A-fib Code(s): I48.91 - UNSPECIFIED ATRIAL FIBRILLATION Status: Chronic Qualifiers: Atrial fibrillation type: paroxysmal Qualified Code(s): I48.0 - Paroxysmal atrial fibrillation - Plan adjusting meds for PEG -: cont tube feedings -: Dc planning * .
[2017-09-02] MEDS: Diabetic Tussin 200 MG/10 ML UDCUP PER TUBE SCH ×2 (11:39→20:50)
[2017-09-02] MEDS: Losartan 25 MG TAB PER TUBE SCH (11:40)
[2017-09-02] MEDS: Amlodipine 10 MG TAB PER TUBE SCH (11:41)
[2017-09-02] MEDS: Aspirin 325 MG TAB PER TUBE SCH (11:41)
[2017-09-02] MEDS: Finasteride 5 MG TAB FS SCH (12:21)
[2017-09-02] MEDS: Famotidine 20 MG TAB PER TUBE SCH (12:21)
[2017-09-02] MEDS: Tamsulosin HCl 0.4 MG CAP FS SCH (12:22)
[2017-09-02] MEDS ORDERED: GASTROGRAFIN 30 ML BOT ONE (12:53)
[2017-09-02] MEDS: Atorvastatin Calcium 20 MG TAB PER TUBE SCH (20:50)
[2017-09-02] MEDS ORDERED: Terazosin HCl 1 MG CAP PER TUBE SCH (21:00)
[2017-09-03 06:09] LABS: Anion Gap 9 mmol/L (10-20); BUN (Urea Nitrogen) 15 mg/dL (8.4-25.7); Calc. Creatinine Clearance 93 mL/min (70-130); Calcium 8.4 mg/dL (7.8-10.44); Carbon Dioxide 27 mmol/L (23-31); Chloride 106 mmol/L (98-107); Estimated GFR-MDRD Greater than 90; Glucose 121 mg/dL (83-110); Magnesium 2.4 mg/dL (1.6-2.6); Phosphorus 3.3 mg/dL (2.3-4.7); Potassium 3.8 mmol/L (3.5-5.1); Sodium 138 mmol/L (136-145)
[2017-09-03] MEDS: Levothyroxine Sodium 50 MCG TAB PER TUBE SCH (06:29)
[2017-09-03] MEDS: Aspirin 325 MG TAB PER TUBE SCH (08:29)
[2017-09-03] MEDS: Losartan 25 MG TAB PER TUBE SCH (08:29)
[2017-09-03] MEDS: Amlodipine 10 MG TAB PER TUBE SCH (08:30)
[2017-09-03] MEDS: Diabetic Tussin 200 MG/10 ML UDCUP PER TUBE SCH (08:30)
--- NOTE | 2017-09-03 09:27 | DIS ---
TRANSFER OF CARE NOTE PRIMARY CARE PROVIDER: Dr. Suzanne Solitario DATE OFADMISSION: 08/22/2017 DATE OF DISCHARGE: 09/03/2017 DISCHARGE DISPOSITION: Home with home health. FINAL DIAGNOSES: 1. Cerebral infarction with right hemiplegia. 2. Aphasia and aphagia. 3. Atrial fibrillation. 4. History of dementia. 5. Hypertension. 6. Hypothyroidism. 7. Benign prostatic hypertrophy with prostatism. 8. Atrial fibrillation. DISCHARGE MEDICATIONS: Losartan 100 mg per tube daily, amlodipine 10 mg per tube daily, levothyroxin e 50 mcg per tube daily, Hytrin 2 mg per tube daily, Lipitor 20 mg per tube daily, aspirin 325 mg per tube daily. ALLERGIES: No known drug allergies. CODE STATUS: DNR. PENDING AT THE TIME OF DISCHARGE: Nothing. HOSPITAL COURSE: The patient admitted to [facility] through [facility] with sudden loss of function on his right side and confusion. He was placed in the hospital. Brain CT revealed no acute intracranial abnormalities, but indeterminate lacunar infarctions, encephalomal acia of left temporal occipital lobe. MRI was unable to be done. A follow up brain CT revealed a knox bacute left middle cerebral infarction with mild mass effect. The patient continued to flunk the sw allowing study. PERTINENT LABORATORY ON ADMISSION: CBC showed a mild anemia of 12.4, otherwise normal. INR 1.1. [facility] metabolic profile showed a potassium of 3.1, otherwise unremarkable. The patient was seen in hospital for behavioral medicine by Dr. Myranda Fregoso. The patient had received t-PA for stroke on admission. The patient 's aphagia and aphasia and left hemiplegia failed to improve during his hospital stay. He was also s een in consultation by Dr. Chance Mccartney. The patient had atrial fibrillation. On 08/26/2017 the pa marquis underwent PEG tube placement by Dr. Dontrell Hobson. The patient was seen on 08/26/[address] Trevin White, Neurology. The patient's hospital stay was prolonged by the fact that he is unfun ded. We were unable to find placement for him. We eventually found home health willing to take him on a probono process. He is currently on tube feedings, getting his medicines per tube. He will be followed up at home health. He will need follow up by Dr. Solitario in the future. Prognosis for im provement is poor. The decision was made with family not to put this man on oral anticoagulation for his atrial fibrillation.
[2017-09-03 11:36] VITALS: TEMP 97.3
[2017-09-03 15:32] VITALS: BP 160/74
--- NOTE | 2017-09-11 15:12 | EKG ---
Test Reason : Blood Pressure : / mmHG Vent. Rate : 067 BPM Atrial Rate : 058 BPM P-R Int : 000 ms QRS Dur : 102 ms QT Int : 462 ms P-R-T Axes : 000 -65 063 degrees QTc Int : 488 ms Atrial fibrillation Left anterior fascicular block Possible Lateral infarct , age undetermined Abnormal ECG Confirmed by AKUA BOWMAN ([id number]), editor magazine KINGSLEY LOPEZ ([id number]) on 09/11/2017 3:12:08 PM Referred By: GRACIE Confirmed By:AKUA BOWMAN
== END 2017-09-03 20:11 | disposition home health service (06) | DRG 61 ==
LOC: ERS 12:22 → CCU 15:08 → 2SE 15:51
PROVIDERS: ADMIT Internal Medicine; ATTEND Internal Medicine
PROC: 3E03317 Introduction of Other Thrombolytic into Peripheral Vein, Percutaneous Approach (ICD-10-PCS; 2017-08-22)
PROC: 0DH63UZ Insertion of Feeding Device into Stomach, Percutaneous Approach (ICD-10-PCS; principal; 2017-08-26)
DX: I63.312 Cerebral infarction due to thrombosis of left middle cerebral artery (principal); G93.49 Other encephalopathy; G81.91 Hemiplegia, unspecified affecting right dominant side; R13.10 Dysphagia, unspecified; I48.0 Paroxysmal atrial fibrillation; R47.01 Aphasia; E03.9 Hypothyroidism, unspecified; E87.6 Hypokalemia; Z66 Do not resuscitate; G30.9 Alzheimer's disease, unspecified; F02.80 Dementia in other diseases classified elsewhere, unspecified severity, without behavioral disturbance, psychotic disturbance, mood disturbance, and anxiety; I10 Essential (primary) hypertension; N40.0 Benign prostatic hyperplasia without lower urinary tract symptoms; Z82.3 Family history of stroke; N40.1 Benign prostatic hyperplasia with lower urinary tract symptoms
CPT/HCPCS: 0042T; 36415; 36416; 70450; 70496; 70498; 71045; 74018; 80048; 80053; 80061; 82553; 83605; 83735; 84100; 84484; 85025; 85610; 85730; 86803; 87340; 87389; 90471; 90670; 90682; 93005; 93306; 94760; 96365; A4216; G0008; G0009; G8978-GP-CN; G8979-GP-CK; G8987-GO-CN; G8988-GO-CI; G9162-GN-CN; G9163-GN-CN; J0360; J1630; J2060; J2704; J2997; J3486; Q2036; S0028

== ENCOUNTER 2017-09-04 08:29 | Observation (INO) | payer MEDICAID, SELFPAY ==
[2017-09-04 09:50] LABS: #Eosinphils 0.1 thou/uL (0.0-0.7); #Lymphocytes 1.1 thou/uL (1.20-3.40); #Monocytes 0.8 thou/uL (0.11-0.59); #Neutrophils 5.6 thou/uL (1.40-6.50); %Basophils 0.3 % (0.0-1.0); %Eosinophils 1.1 % (0.0-10.0); %Neutrophils 73.6 % (42.0-75.0); Hemoglobin 11.4 g/dL (14.0-18.0); Mean Corpuscular HGB CONC 32.8 g/dL (32.0-36.0); Mean Corpuscular Hemoglobin 31.7 pg (27.0-31.0); Mean Corpuscular Volume 96.4 fl (80.0-94.0); Mean Platelet Volume 6.3 fL (7.4-10.4); Platelet Count 276 thou/uL (130-400); RBC Distribution Width 13.6 % (11.5-14.5); Red Blood Cell (RBC) Count 3.62 mill/uL (4.70-6.10); White Blood Cell (WBC) Count 7.6 thou/uL (4.8-10.8)
--- NOTE | 2017-09-04 09:53 | RAD ---
CHEST 1 VIEW: Date: 09/04/17 HISTORY: Altered mental status. COMPARISON: Prior radiograph dated 08/22/17. FINDINGS: Lungs are hypoinflated with vascular crowding. There is fullness of the hilum bilaterally. No pneumot horax. No large effusion. No acute osseous abnormality. IMPRESSION: 1. Increased perihilar markings suggesting pulmonary venous congestion or early edema. 2. Cardiomegaly. Follow-up recommended. POS: DAVE
[2017-09-04 10:11] LABS: ALT (SGPT) 37 U/L (8-55); AST (SGOT) 33 U/L (5-34); Albumin 3.4 g/dL (3.4-4.8); Alkaline Phosphatase 92 U/L (40-150); Anion Gap 9 mmol/L (10-20); BUN (Urea Nitrogen) 13 mg/dL (8.4-25.7); CK (CPK) 244 U/L (30-200); Calc. Creatinine Clearance 0 mL/min (70-130); Calcium 8.8 mg/dL (7.8-10.44); Carbon Dioxide 27 mmol/L (23-31); Chloride 105 mmol/L (98-107); Estimated GFR-MDRD 89; Globulin 3.4 g/dL (2.4-3.5); Glucose 108 mg/dL (83-110); Lipase 12 U/L (8-78); Potassium 3.7 mmol/L (3.5-5.1); Protein, Total 6.8 g/dL (5.8-8.1); Sodium 137 mmol/L (136-145)
[2017-09-04 10:13] LABS: CKMB 4.6 ng/mL (0-6.6); Troponin I 0.019 ng/mL (< 0.028)
[2017-09-04 10:26] LABS: Bilirubin Negative (Negative); Blood, Urine Negative (Negative); Clarity CLEAR (Clear); Glucose, Urine (Dipstick) Negative (Negative); Leukocyte Large (Negative); Nitrite Negative (Negative); Protein, Urine (Dipstick) Negative (Neg-Trace); pH, Urine 7.5 (5.0-9.0)
[2017-09-04 10:29] LABS: Bacteria/HPF 3+ HPF (None Seen); Hyaline Casts/LPF 0-3 HYALINE CAST LPF (0-3 Hyaline); Pathc Cast-AUWi Flag 0.27 (0-2.49); RBC/HPF 0-3 HPF (0-3); Squamous Epithelial None Seen HPF (0-3); WBC/HPF 21-50 HPF (0-3)
[2017-09-04 10:31] LABS: Bilirubin, Total 0.6 mg/dL (0.2-1.2)
--- NOTE | 2017-09-04 11:06 | CT ---
CT BRAIN WITHOUT CONTRAST: Date: 09/04/17 HISTORY: Altered mental status. COMPARISON: CT brain dated 08/23/17. FINDINGS: There is small focus of intraparenchymal hemorrhage, left posterior frontal gyrus. Left MCA territory infarction is evolving. This involves the left parietal, temporal, and frontal lobes. No new acute a reas of loss of naranjo-white matter differentiation. Left craniectomy change is similar. IMPRESSION: 1. New small focus of punctate intraparenchymal hemorrhage left post central gyrus near the vertex, series 2, image 23. 2. Continued evolution of the left MCA territory infarction with decreased edema. Dr. Kern notified of findings. CODE CR. CODE T. POS: [facility]
--- NOTE | 2017-09-04 12:36 | RAD ---
AP ABDOMINAL RADIOGRAPH: 09/04/2017 HISTORY: Abdominal pain. Check placement of PEG tube. COMPARISON: 09/02/2017 FINDINGS: Again, there is tubing overlying the left lower chest and left upper quadrant, which is likely relate d to a gastrostomy tube. There is a small amount of contrast seen and what appears to represent con trast within the stomach. The bowel gas pattern is nonspecific. There has been no other interval ch amy from the prior study. IMPRESSION: Small amount of contrast seen in what appears to be the stomach with gastrostomy tube in place. POS: DAVE
[2017-09-04] MEDS ORDERED: Iopamidol 300 61% 30 ML VIAL ONE (13:34)
[2017-09-04] MEDS ORDERED: Ondansetron ODT 4 MG TAB PO PRN (14:40)
[2017-09-04] MEDS ORDERED: Ondansetron HCl/PF 4 MG/2 ML Vial IVP PRN (14:40)
[2017-09-04] MEDS ORDERED: Sodium Chloride 0.9% 1,000 ML IV SCH (14:45)
[2017-09-04] MEDS ORDERED: Acetaminophen 650 MG Suppository PR PRN (15:38)
[2017-09-04] MEDS ORDERED: Acetaminophen 325 MG TAB PO PRN (15:38)
[2017-09-04] MEDS: Sodium Chloride 0.9% 1,000 ML IV SCH (16:05)
--- NOTE | 2017-09-04 19:37 | HP ---
REASON FOR ADMISSION: Small intracranial hemorrhage likely alexander-infarct bleed, altered mental state/acute encephalopathy with patient pulling G-tube nearly 3 times after arrival here. HISTORY OF PRESENT ILLNESS: Please note majority of this history is obtained by my talking to patient's son who is here at bedside. The patient was apparently discharged yesterday by Dr. Byers to home after he sustained a large left middle cerebral artery infarct with right hemiplegia, aphasia, aphagia, and dysphagia. He had a PEG tube placed. The patient could not be placed due to financial/insurance issues and was sent home. He also received TPA during his last admission here when he came in for his CVA. This morning, the patient at home pulled his PEG tube. He was more agitated than his usual dementia features per son. He was brought to emergency room for replacing the G-tube. Incidentally, they had a CT brain done which showed new focus of punctate intraparenchymal hemorrhage in the left post-central gyrus near the vertex. Here in the ER, Dr. Kern replaced the feeding tube back, but the patient apparently pulled this for the second time. After replacing it for the third time, he has again pulled it one more time while he was getting transferred to the stroke unit bed. Staff on stroke unit tell me he is too quick to pull the tube out before they could prevent the same. He is not oriented at present. PAST MEDICAL AND SURGICAL HISTORY: History of right hemiplegia with a large left middle cerebral artery infarct status post TPA given on 08/22/2017, dementia, hypothyroidism, hypertension, right eye surgery. PERSONAL HISTORY: Does not abuse alcohol or drugs. FAMILY HISTORY: Brother has had history of [place], has another brother who has had history of CVA. CURRENT MEDICATIONS: On discharge, Norvasc 10 mg daily, aspirin 325 mg daily, Lipitor 20 mg daily, Synthroid 50 mcg daily, Cozaar 100 mg daily, terazosin 2 mg at bedtime. ALLERGIES: No known drug allergies. REVIEW OF SYSTEMS: Cannot be obtained as patient is not oriented at present. PHYSICAL EXAMINATION: GENERAL: The patient is an 82-year-old male who is currently not in any acute distress. VITAL SIGNS: Blood pressure is 154/90, pulse 70 per minute, respiratory rate 18 per minute, temperature 99.5 degrees Fahrenheit, saturating 99% on room air. NECK: Supple, no elevated JVD. HEENT: Extraocular muscles intact. Pupils reacting to light. Oral cavity mucous membranes are dry. No exudates or congestion. CARDIOVASCULAR: S1, S2 heard. Regular rhythm. RESPIRATORY: Air entry 1+ bilateral. Scattered rhonchi plus no rales or wheezes. ABDOMEN: Soft, bowel sounds heard. Currently has a Russell placed and the PEG tube opening as he pulled out the tube to keep the ostium open. No rigidity or guarding. EXTREMITIES: No peripheral edema or calf tenderness. VASCULAR: Peripheral pulses 1+ bilateral, no ischemic ulcerations or gangrene. CENTRAL NERVOUS SYSTEM: The patient has right hemiparesis from his recent CVA. He is able to move his extremities including the right to some extent. He is freely moving his left upper and lower extremities. The patient is not oriented at present. PSYCHIATRIC: Cannot be assessed due to patient's underlying dementia and aphasia from the CVA. LABORATORY AND X-RAY FINDINGS: White count of 7, H&H 11 and 34, platelet count 276, MCV is 96 with 73% neutrophils. Electrolytes stable. BUN 13, creatinine 0.8, glucose 108. Liver enzymes within normal limits. CK level is 244, troponin I 0.01. BNP is 382, albumin is 3.4, lipase is 12. UA shows large leukoesterase with 21-50 wbc's and 3+ bacteria. CT brain done shows new small focus of punctate intraparenchymal hemorrhage in the left post-central gyrus near the vertex. There is continued evolution of left MCA territory infarct with decreasing edema. Chest x-ray done shows increased perihilar markings, mild cardiomegaly, no obvious infiltrate. EKG done shows atrial fibrillation at 57 beats per minute. CLINICAL IMPRESSION AND PLAN: The patient will be placed under observation on the stroke unit for a small alexander-infarct bleed with his massive CVA. He is also pulled his feeding tube 3 times. His abdomen will be placed in a binder. We will also place him on a small dose of Risperdal to help with his behavior with underlying dementia and current CVA. We will continue his Lipitor, Synthroid, Cozaar, and terazosin as before. Dr. Hobson has been consulted for Gastroenterology to replace the feeding tube and Dr. Francois has been consulted by Dr. Kern for the small alexander-infarct bleed. The plan is to repeat a CT brain in the morning. If the bleed remains the same size and the patient remains hemodynamically stable, he will be discharged home to stay with the family. The patient lives with his son and he has 3 other siblings will help him out at home. JARRETT
[2017-09-04] MEDS ORDERED: Famotidine 20 MG TAB PO SCH (21:00)
[2017-09-04] MEDS ORDERED: Lorazepam 2 MG/ML VIAL SLOW IVP SCH (21:00)
[2017-09-04] MEDS: Atorvastatin Calcium 20 MG TAB PER TUBE SCH (22:46)
[2017-09-04] MEDS: risperiDONE 1 MG TAB PO SCH (22:47)
[2017-09-04] MEDS: Terazosin HCl 1 MG CAP PER TUBE SCH (22:47)
[2017-09-05] MEDS: Levothyroxine Sodium 50 MCG TAB PO SCH (04:58)
[2017-09-05 05:46] LABS: #Eosinphils 0.2 thou/uL (0.0-0.7); #Lymphocytes 0.7 thou/uL (1.20-3.40); #Monocytes 0.4 thou/uL (0.11-0.59); #Neutrophils 5.4 thou/uL (1.40-6.50); %Basophils 0.3 % (0.0-1.0); %Eosinophils 2.4 % (0.0-10.0); %Lymphocytes 9.8 % (21.0-51.0); %Monocytes 6.2 % (0.0-10.0); %Neutrophils 81.3 % (42.0-75.0); Hemoglobin 11.4 g/dL (14.0-18.0); Mean Corpuscular Hemoglobin 31.7 pg (27.0-31.0); Mean Corpuscular Volume 96.1 fl (80.0-94.0); Mean Platelet Volume 6.4 fL (7.4-10.4); Platelet Count 297 thou/uL (130-400); RBC Distribution Width 13.6 % (11.5-14.5); Red Blood Cell (RBC) Count 3.59 mill/uL (4.70-6.10); White Blood Cell (WBC) Count 6.7 thou/uL (4.8-10.8)
[2017-09-05 06:01] LABS: Anion Gap 11 mmol/L (10-20); BUN (Urea Nitrogen) 12 mg/dL (8.4-25.7); Calc. Creatinine Clearance 93 mL/min (70-130); Calcium 8.8 mg/dL (7.8-10.44); Carbon Dioxide 23 mmol/L (23-31); Chloride 108 mmol/L (98-107); Estimated GFR-MDRD Greater than 90; Glucose 112 mg/dL (83-110); Potassium 3.9 mmol/L (3.5-5.1); Sodium 138 mmol/L (136-145)
--- NOTE | 2017-09-05 06:40 | CON ---
DATE OF CONSULTATION: 09/04/2017 REFERRING DOCTOR: Kennedy Rodriguez M.D. REASON FOR CONSULTATION: Replacement of gastrostomy tube. HISTORY OF PRESENT ILLNESS: Mr. Marlon Maloney is an unfortunate 82-year-old [place] male who suffered a CVA 2 weeks ago. The patient had an EGD and PEG tube placement done by me. I did see him yesterday afternoon and adjusted the bumper before he left the hospital. The tube was in good place and was tolerating feeding. After he went home last night, he pulled out the tube and he was brought back to the ER. The G-tube was replaced and again he pulled it out and now he has a Russell catheter temporarily. The patient is very restless and agitated. He is a very powerful and muscular alcira, and he can easily pull out the G-tube without difficulty. He was doing well in the hospital, and the minute he went home, he he pulled it out. He is not communicating, he is confused. I was asked to see the patient by Dr. Rodriguez to replace the G- tube. The patient was seen in the room along with the patient's family. He is very restless and agitated and constantly thrashing and moving. No relevant history. MEDICAL ILLNESSES: Include, 1. Benign prostatic hypertrophy. 2. Hypertension. 3. Hypothyroidism. 4. Hyperlipidemia. 5. History of CVA. 6. Aphasia. 7. Confusion. ALLERGIES: None. PHYSICAL EXAMINATION: GENERAL: He is very muscular, well-built alcira. He is very restless and agitated and constantly moving around in the bed. VITAL SIGNS: Pulse is 81, blood pressure 143/81. CARDIOVASCULAR SYSTEM AND LUNGS: Within normal limits. ABDOMEN: Soft and distended. He has a dressing applied very well over the PEG tube site. Abdomen nontender. I had long a talk with the patient's family and explained that unless he can be kept quiet and not be agitated, it will be difficult to really keep the PEG tube in place. He will have IV fluids today. I will plan for EGD and PEG tube tomorrow. Again I very skeptical about how long he is going to keep the tube, and he is going to probably pull it out. We will also try some oral feeding and see if he can tolerate the diet. Unfortunately, swallow study cannot be done because of his confusion and agitation. I may as well try p.o. oral intake and see if he is able to tolerate it. In the long run, I believe the PEG tube may not be a good idea because he will probably keep pulling it out, and there is a limit to how many times we can replace it. MTDD
--- NOTE | 2017-09-05 08:12 | CT ---
NONCONTRAST HEAD CT: HISTORY: Followup bleed. The patient is agitated. COMPARISON: 09/04/17. TECHNIQUE: Noncontrast head CT is performed from the skull base to the skull vertex. FINDINGS: There is stable postsurgical change involving the left calvarium. There is evolutionary change due t o a left MCA distribution infarction. There is a persistent hyperdensity along the medial left parie driss lobe, unchanged, and measuring 0.4 cm. No new areas of hemorrhage. Stable opacification of the mastoid air cells. IMPRESSION: 1. Stable focus of intraparenchymal hemorrhage. 2. Continued evolutionary changes of left middle cerebral artery distribution infarction. POS: [facility]
[2017-09-05] MEDS: Famotidine/PF 20 mg/2ml Vial SLOW IVP SCH ×3 (10:46→21:32)
[2017-09-05] MEDS: Amlodipine 10 MG TAB PO SCH (10:46)
[2017-09-05] MEDS: Losartan 25 MG TAB PO SCH (10:46)
[2017-09-05] MEDS: Sodium Chloride 0.9% 1,000 ML IV SCH (10:53)
--- NOTE | 2017-09-05 13:30 | PDOC.PN ---
- Subjective Encounter Start Date: 09/05/17 Encounter Start Time: 10:30 Subjective: is sleeping at present, not in distress - Objective Resuscitation Status: Resuscitation Status DNR:Do Not Resuscitate MAR Reviewed: Yes Vital Signs & Weight: Vital Signs (12 hours) Temp Pulse Pulse Resp BP BP Pulse Ox 09/05/17 12:00 160/84 H 09/05/17 11:43 97.7 F 79 16 95 09/05/17 10:46 64 09/05/17 08:31 78 09/05/17 08:10 98.3 F 64 18 09/05/17 08:00 170/90 H 09/05/17 07:28 98.3 F 64 18 97 09/05/17 05:06 98.8 F 74 22 H 148/96 H 91 L Pulse Ox 09/05/17 12:00 09/05/17 11:43 09/05/17 10:46 09/05/17 08:31 95 09/05/17 08:10 09/05/17 08:00 09/05/17 07:28 09/05/17 05:06 Weight Admit Weight 204 lb Weight 204 lb I&O: 09/04/17 09/05/17 09/06/17 06:59 06:59 06:59 Intake Total 930 939 Balance 930 939 Result Diagrams: 09/05/17 04:57 09/05/17 04:57 Phys Exam - Physical Examination HEENT: PERRLA, moist MMs Neck: no JVD, supple Respiratory: no wheezing, no rales rhonchi+ Cardiovascular: RRR, no significant murmur Gastrointestinal: soft, no distention, positive bowel sounds Musculoskeletal: no edema, pulses present mild right hemiparesis, dysphagia, dysarthria Dx/Plan (1) reinsertion of peg tube Status: Acute (2) Acute CVA (cerebrovascular accident) Code(s): I63.9 - CEREBRAL INFARCTION, UNSPECIFIED Status: Acute Comment: right hemiparesis (3) BPH (benign prostatic hyperplasia) Code(s): N40.0 - BENIGN PROSTATIC HYPERPLASIA WITHOUT LOWER URINRY TRACT SYMP Status: Chronic Qualifiers: Lower urinary tract symptom presence: symptoms absent Qualified Code(s): N40.0 - Benign prostatic hyperplasia without lower urinary tract symptoms (4) Dementia Code(s): F03.90 - UNSPECIFIED DEMENTIA WITHOUT BEHAVIORAL DISTURBANCE Status: Chronic Qualifiers: Dementia type: unspecified type Dementia behavioral disturbance: with behavioral disturbance Qualified Code(s): F03.91 - Unspecified dementia with behavioral disturbance (5) Hemiplegia affecting dominant side Code(s): G81.90 - HEMIPLEGIA, UNSPECIFIED AFFECTING UNSPECIFIED SIDE Status: Acute (6) Hypertension Code(s): I10 - ESSENTIAL (PRIMARY) HYPERTENSION Status: Chronic Qualifiers: Hypertension type: essential hypertension (7) Hypothyroidism Code(s): E03.9 - HYPOTHYROIDISM, UNSPECIFIED Status: Chronic Qualifiers: - Plan will be going for re-insertion of peg with egd today -: may dc home after the above procedure -: d/w family at bedside -: chayo sevilla -: d/w speech therapy to re-evaluate him after peg insertion * .
[2017-09-05] MEDS ORDERED: hydrALAZINE 20 MG/ML VIAL SLOW IVP SCH (21:15)
[2017-09-05] MEDS: Terazosin HCl 1 MG CAP PER TUBE SCH (21:33)
[2017-09-05] MEDS: Atorvastatin Calcium 20 MG TAB PER TUBE SCH (21:33)
[2017-09-05] MEDS: risperiDONE 1 MG TAB PO SCH (21:33)
[2017-09-06] MEDS: Levothyroxine Sodium 50 MCG TAB PO SCH (06:00)
[2017-09-06] MEDS: Sodium Chloride 0.9% 1,000 ML IV SCH (06:02)
[2017-09-06] MEDS ORDERED: Lidocaine 1% PF 5 ML VIAL ONE (07:18)
[2017-09-06] MEDS ORDERED: PROPOFOL 200 MG/20 ML VIAL ONE (07:18)
[2017-09-06] MEDS: Famotidine/PF 20 mg/2ml Vial SLOW IVP SCH ×2 (11:49→20:58)
[2017-09-06] MEDS: Losartan 25 MG TAB PO SCH (11:49)
[2017-09-06] MEDS: Amlodipine 10 MG TAB PO SCH (11:50)
--- NOTE | 2017-09-06 14:05 | PDOC.PN ---
- Subjective Encounter Start Date: 09/06/17 Encounter Start Time: 13:40 Comfortable.. Demented. - Objective Resuscitation Status: Resuscitation Status DNR:Do Not Resuscitate Vital Signs & Weight: Vital Signs (12 hours) Temp Pulse Resp BP BP Pulse Ox 09/06/17 11:50 58 L 180/82 H 09/06/17 10:50 98.2 F 58 L 20 178/80 H 95 09/06/17 06:09 98.4 F 75 143/84 H 94 L Weight Admit Weight 204 lb Weight 208 lb 14.4 oz I&O: 09/05/17 09/06/17 09/07/17 06:59 06:59 06:59 Intake Total 930 1891 611 Balance 930 1891 611 Result Diagrams: 09/05/17 04:57 09/05/17 04:57 Phys Exam - Physical Examination HEENT: sclera anicteric Neck: no JVD Respiratory: clear to auscultation bilateral Cardiovascular: RRR (Abdomen distended) Musculoskeletal: no edema Dx/Plan (1) reinsertion of peg tube Status: Acute (2) Acute CVA (cerebrovascular accident) Code(s): I63.9 - CEREBRAL INFARCTION, UNSPECIFIED Status: Acute Comment: right hemiparesis (3) Hemiplegia affecting dominant side Code(s): G81.90 - HEMIPLEGIA, UNSPECIFIED AFFECTING UNSPECIFIED SIDE Status: Acute - Plan -: Stable. -: s/p pEG. -: Home tomorrow. * .
[2017-09-06 17:07] VITALS: BMI 28.8
--- NOTE | 2017-09-06 18:40 | OP ---
DATE OF PROCEDURE: 09/06/2017 PROCEDURE PERFORMED: Esophagogastroduodenoscopy with replacement of percutaneous endoscopic gastrost saima tube. PREPROCEDURE DIAGNOSIS: Initial percutaneous endoscopic gastrostomy tube was placed on 08/26/2017. Patient subsequently removed the PEG several times, this has been replaced at the bedside in the [facility] room with Russell catheters. The patient returned again, seen by Dr. Hobson yesterday with th e same problem. Apparently, he gets very confused at home. The family notes that they put abdominal binders on to no avail. They decided to try to do this one last time. If he removes the PEG in the future, they will just give him comfort feeds. POSTPROCEDURE DIAGNOSIS: Russell catheter is noted in the percutaneous endoscopic gastrostomy tube tra ct. This was changed endoscopically for a 16 Belarusian percutaneous endoscopic gastrostomy tube with no complications. This was done endoscopically instead of just at the bedside as he has had recent per cutaneous endoscopic gastrostomy tube placement in order to ensure we are in the stomach and not plac ing a percutaneous endoscopic gastrostomy into the peritoneal space. RECOMMENDATIONS: 1. I talked with the Hospitalist to see what they recommend concerning some type of sedation or anti psychotic for this patient to see if they can keep him from pulling out PEG tubes. 2. I have talked with the nurses in the floor of the abdominal binder that was on the patient was on backwards and the Velcro adhesive was not even fixed, that may be the reason he has continuously rem elly his PEG. 3. I discussed with the family and confirmed the decision that no further PEG tubes will be placed i f he removes this one. ANESTHESIA: TIVA. PROCEDURE IN DETAIL: Family was informed of the risks, benefits, and possible complications of endos copy including perforation, bleeding, reactions to medication and aspiration, informed consent was ob tained. The patient was brought in to endoscopy suite, where he was sedated in standard fashion. On ce he was comfortable, a bite block was placed in incisural orifice. The endoscope was advanced thro ugh the esophagus, stomach and second and third portion of duodenum and slowly removed. There was go od visualization of mucosa. There were no masses, lesions or arteriovenous malformations identified. The Russell catheter was noted in the gastric lumen. The balloon was desufflated. It was removed. A 16 Belarusian PEG tube was then placed through the tract and once confirmed in the gastric lumen and pl ated, the scope was removed. There were no complications.
[2017-09-06] MEDS: Atorvastatin Calcium 20 MG TAB PER TUBE SCH (20:58)
[2017-09-06] MEDS: risperiDONE 1 MG TAB PO SCH (20:58)
[2017-09-06] MEDS: Terazosin HCl 1 MG CAP PER TUBE SCH (20:58)
[2017-09-07] MEDS: Sodium Chloride 0.9% 1,000 ML IV SCH (03:12)
[2017-09-07] MEDS: Levothyroxine Sodium 50 MCG TAB PO SCH (06:25)
--- NOTE | 2017-09-07 09:26 | PDOC.PN ---
- Subjective Encounter Start Date: 09/07/17 Encounter Start Time: 09:00 Subjective: Comfortable. -: Demented.. - Objective Resuscitation Status: Resuscitation Status DNR:Do Not Resuscitate Vital Signs & Weight: Vital Signs (12 hours) Temp Pulse Resp BP Pulse Ox 09/07/17 07:56 97.5 F L 82 20 149/72 H 97 09/07/17 04:00 97.5 F L 84 23 H 158/78 H 95 Weight Admit Weight 204 lb Weight 195 lb 4.8 oz I&O: 09/06/17 09/07/17 09/08/17 06:59 06:59 06:59 Intake Total 1891 1271 Balance 1891 1271 Result Diagrams: 09/05/17 04:57 09/05/17 04:57 Phys Exam - Physical Examination HEENT: sclera anicteric Neck: no JVD Respiratory: clear to auscultation bilateral Cardiovascular: RRR Gastrointestinal: no distention (Somewhat firm..Bowell sounds not heard) Musculoskeletal: no edema Dx/Plan (1) reinsertion of peg tube Status: Acute (2) Acute CVA (cerebrovascular accident) Code(s): I63.9 - CEREBRAL INFARCTION, UNSPECIFIED Status: Acute Comment: right hemiparesis (3) Hemiplegia affecting dominant side Code(s): G81.90 - HEMIPLEGIA, UNSPECIFIED AFFECTING UNSPECIFIED SIDE Status: Acute - Plan -: No acute change. -: Home if ok with GI. * .
[2017-09-07] MEDS: Losartan 25 MG TAB PO SCH (10:26)
[2017-09-07] MEDS: Famotidine/PF 20 mg/2ml Vial SLOW IVP SCH (10:27)
[2017-09-07] MEDS: Amlodipine 10 MG TAB PO SCH (10:27)
--- NOTE | 2017-09-07 11:21 | DIS ---
DATE OF ADMISSION: 09/04/2017 DATE OF DISCHARGE: 09/07/2017 ADMITTING DIAGNOSES: Cerebrovascular accident infarct with alexander-infarct bleed. NG tube misplacement and dementia. SYSTEM INTEGRATION ENGINEER: Dr. Hobson. PROCEDURES PERFORMED: Brain CT, chest x-ray, abdomen x-ray and placement of new G-tube. COURSE OF HOSPITALIZATION: Uncomplicated. Responded well to management. The patient is to be disch arged home after being seen by Gastroenterology later today. He is clinically stable at this time. He is to follow up with his primary care physician and also Gastroenterology.
[2017-09-07 12:46] VITALS: BP 146/96; TEMP 98.1
--- NOTE | 2017-09-07 22:24 | PRG ---
DATE OF SERVICE: 09/07/2017 SUBJECTIVE: Nurses called last night. Mr. Maloney's PEG tube popped out on its own; it was only a 5 cc tube that was put back in and reinflated. Overnight, he has been stable. Family notes he has been able to tolerate a little bit of comfort feeds. PHYSICAL EXAMINATION: VITAL SIGNS: Temperature is 97.5, pulse 82, blood pressure 142/79. ABDOMEN: Soft, nontender. I decided to go ahead and change the PEG tube out and get a 20-Jamaican regular replacement tube. The tube was given to me in endoscopy yesterday. It was very small and 5 mm balloon on it. This has a 2 0 mm balloon on it. I made an exchange at the bedside easily without difficulty, aspirated gastric c ontents from it and inflated the 20 cc balloon. I think that will work much better for him to be les s apt to be pulled out or fall out. I have talked with the family again about keeping abdominal bind er over the PEG tube to keep him from pulling on it. We will see how he does. The tract was matured at endoscopy yesterday, and I think that we are out of the harvey as far as concerns for PEG tube kaylin ng removed and the stomach being dissociated from the abdominal wall. We will sign off. I think the patient can go home today as per the plans for hospitalist. He can follow up with Dr. Hobson hi s primary jewel grinder, as needed in the outpatient setting.
== END 2017-09-07 14:19 | disposition home or self-care (01) ==
LOC: ERS 08:29 → 2SE 13:14
PROVIDERS: ADMIT Internal Medicine; ATTEND Internal Medicine
PROC: 0DH63UZ Insertion of Feeding Device into Stomach, Percutaneous Approach (ICD-10-PCS; principal; 2017-09-06)
DX: T85.528A Displacement of other gastrointestinal prosthetic devices, implants and grafts, initial encounter (principal); I62.9 Nontraumatic intracranial hemorrhage, unspecified; I63.512 Cerebral infarction due to unspecified occlusion or stenosis of left middle cerebral artery; G81.90 Hemiplegia, unspecified affecting unspecified side; R47.01 Aphasia; G93.40 Encephalopathy, unspecified; F03.90 Unspecified dementia, unspecified severity, without behavioral disturbance, psychotic disturbance, mood disturbance, and anxiety; E03.9 Hypothyroidism, unspecified; I10 Essential (primary) hypertension; N40.0 Benign prostatic hyperplasia without lower urinary tract symptoms; Z79.82 Long term (current) use of aspirin; Z79.899 Other long term (current) drug therapy; Z66 Do not resuscitate
CPT/HCPCS: 36415; 36416; 43760; 51701; 70450; 71045; 74018; 80048; 80053; 81003; 81015; 82553; 83690; 83880; 84484; 85025; 93005; 96361; 96365; 96375; 96376; B4087; G0378; G8978-GP-CK; G8979-GP-CJ; G8996-GN-CL; G8997-GN-CL; J0360; J1956; J2001; J2060; J2704; S0028

== ENCOUNTER 2017-10-04 17:51 | Observation (INO) | payer MEDICAID, SELFPAY ==
[~2017-10-04 17:51] MED LIST: ISOVUE-370 76%-LOCM 1 ML ONE
[2017-10-04 18:58] LABS: #Lymphocytes 0.7 thou/uL (1.20-3.40); #Monocytes 0.2 thou/uL (0.11-0.59); #Neutrophils 6.1 thou/uL (1.40-6.50); %Basophils 0.2 % (0.0-1.0); %Eosinophils 0.2 % (0.0-10.0); %Lymphocytes 9.5 % (21.0-51.0); %Monocytes 2.9 % (0.0-10.0); %Neutrophils 87.2 % (42.0-75.0); Hemoglobin 13.2 g/dL (14.0-18.0); Mean Corpuscular HGB CONC 33.3 g/dL (32.0-36.0); Mean Platelet Volume 6.4 fL (7.4-10.4); Platelet Count 228 thou/uL (130-400); RBC Distribution Width 13.1 % (11.5-14.5); Red Blood Cell (RBC) Count 4.14 mill/uL (4.70-6.10)
[2017-10-04 19:05] LABS: INR-International Normal Ratio 1.2; PTT 28.9 SEC (22.9-36.1); Prothrombin Time 15.7 SEC (12.0-14.7)
[2017-10-04 19:20] LABS: ALT (SGPT) 25 U/L (8-55); AST (SGOT) 20 U/L (5-34); Albumin 3.7 g/dL (3.4-4.8); Alkaline Phosphatase 102 U/L (40-150); Anion Gap 10 mmol/L (10-20); BUN (Urea Nitrogen) 15 mg/dL (8.4-25.7); Bilirubin, Total 0.7 mg/dL (0.2-1.2); Calc. Creatinine Clearance 0 mL/min (70-130); Carbon Dioxide 25 mmol/L (23-31); Chloride 106 mmol/L (98-107); Estimated GFR-MDRD 68; Globulin 3.4 g/dL (2.4-3.5); Glucose 123 mg/dL (83-110); Potassium 3.6 mmol/L (3.5-5.1); Protein, Total 7.1 g/dL (5.8-8.1); Sodium 137 mmol/L (136-145)
[2017-10-04 19:23] LABS: CKMB 2.7 ng/mL (0-6.6); Troponin I Less than 0.010 ng/mL (< 0.028)
[2017-10-04] MEDS ORDERED: Lorazepam 2 MG/ML VIAL ONE (19:25)
[2017-10-04 20:16] LABS: Bilirubin Negative (Negative); Blood, Urine Large (Negative); Clarity CLEAR (Clear); Glucose, Urine (Dipstick) Negative (Negative); Leukocyte Negative (Negative); Nitrite Negative (Negative); Protein, Urine (Dipstick) 30 mg/dL (Neg-Trace); Specific Gravity, Urine 1.011 (1.002-1.036); pH, Urine 7.5 (5.0-9.0)
[2017-10-04 20:19] LABS: Bacteria/HPF None Seen HPF (None Seen); Hyaline Casts/LPF 4-6 HYALINE CAST LPF (0-3 Hyaline); Squamous Epithelial 0-3 HPF (0-3); WBC/HPF 0-3 HPF (0-3)
--- NOTE | 2017-10-04 21:27 | CT ---
CTA OF THE HEAD AND NECK WITH PERFUSION EVALUATION 10/04/17 INDICATION: Reported stroke alert. Upon discussion with Dr. Montaño, Dr. Montaño noted that this is not a stroke alert and that this was ordered in error. Patient is reportedly weak but with history of recent left MCA infarct. COMPARISON: Prior CTA of the head and neck with perfusion evaluation dated 08/22/[address] of the brain dated and 09/04/17. TECHNIQUE: Multiple CTA images were obtained of the head and neck utilizing IV contrast with 3D reformatted imag ing. Perfusion images of the brain were constructed at a separate workstation by the patient care technician instructor. A no ncontrast study was not submitted with this examination because of report of a noncontrast study william greene performed at a separate hospital. This was unable to be retrieved for my review prior to interpreti ng this evaluation. FINDINGS: CT PERFUSION EVALUATION: There is some diminished blood flow in area of the stable chronic encephalomalacia involving the left parietal region. There is subtle increased vascular flow to the region of the left frontal and left parietal region likely from luxury reperfusion of the patient's previously documented left MCA infarc t. There is changes of increased MTT in the region of the left MCA distribution infarct with some per ipheral areas of diminished transit within the left frontal and left parietal region likely represent ing zones with lack of luxury perfusion. The blood volume is diminished in the left temporal lobe, po rtions of the left parietal lobe as well as portions of the left frontal lobe likely related to compl ete infarcts of the left MCA distribution. CTA OF THE HEAD AND NECK: FINDINGS: There is loss of the normal naranjo-white differentiation involving the left MCA distribution consistent with evolutionary changes of the patient's previously diagnosed left MCA distribution infarct. Septum pellucidum and third ventricle are midline. No definite intracranial hemorrhage is evident. Th ere is stable postsurgical change involving the left parietal skull. Areas of encephalomalacia involv ing the left occipital region are also stable. There has been some reconstitution of flow within the left MCA beyond the M1 branch. There is flow pr esent within the anterior cerebral arteries and right MCA as well as the INTERNAL CONTROLS ANALYST bilaterally. The basilar and left vertebral artery remain perfused. There is a left carotid basilar communication on image 187, series 2 which is stable. The right vertebral artery demonstrates some flow within the diminutive vessel. 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 T he left vertebral artery appears patent. Mild narrowing involving the proximal left subclavian artery is stable. there is some mild narrowing of the distal right common carotid artery. The interna carotid arteries bilaterally appear patent. Th ere is emphysematous change involving the lung apices. No enlarged lymph nodes are evident. There is multilevel spondylosis of the cervical spine. IMPRESSION: 1. Findings most consistent with completed infarct involving the left MCA distribution as seen o n the evaluation dated 08/22/17. 2. Some reconstitution of flow within the left M1 branch. The findings on the perfusion evaluati on likely indicative of some luxury perfusion to the left MCA distribution infarct altering interpret ation of the CT perfusion evaluation. 3. 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 4. 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 Left vertebral artery remai ns patent. 5. Mild narrowing of the proximal left subclavian artery is stable. 6. Mild narrowing involving the distal right common carotid artery, stable. 7. Findings were discussed with Dr. Montaño at 7 p.m. on 10/04/17. POS: ONELIA
[2017-10-04 22:04] LABS: Troponin I Less than 0.010 ng/mL (< 0.028)
[2017-10-04] MEDS ORDERED: Sodium Chloride 0.9% 1,000 ML IV SCH (22:15)
[2017-10-04 23:13] VITALS: BMI 30.2
[2017-10-05 01:27] LABS: Troponin I Less than 0.010 ng/mL (< 0.028)
[2017-10-05 08:08] VITALS: BP 137/72; TEMP 98.4
--- NOTE | 2017-10-05 17:51 | HP ---
REASON FOR ADMISSION: Possible transient ischemic attack. HISTORY OF PRESENTING ILLNESS: The patient apparently got dizzy this morning and vomited once. The family noticed that he had more weakness on his right side than before. He has had recent CVA with right hemiparesis and the family noticed that he was more weak and was leaning more to the right per family. He also vomited once. They immediately took him to [facility] from where he was transferred here. Currently, patient is back to his baseline. He is moving all 4 extremities. He follows verbal stimuli in Thai. He in fact had his breakfast. He has no complaints of chest pain, palpitation, PND or orthopnea. He does not complain of any weakness at present. The patient has a PEG tube, but he has been tolerating oral feeding. PAST MEDICAL AND SURGICAL HISTORY: History of right hemiplegia due to large left MCA infarct status post tPA, dementia, hypothyroidism, hypertension, history of right eye surgery, dyslipidemia. CURRENT MEDICATIONS: Patient is on aspirin 325 mg daily, atorvastatin 20 mg daily, donepezil 10 mg p.o. at bedtime, finasteride 5 mg daily, Flomax 0.4 mg daily, memantine 10 mg twice daily, trazodone 50 mg p.o. at bedtime p.r.n. for insomnia, Cozaar 100 mg daily, levothyroxine 50 mcg daily. ALLERGIES: No known drug allergies. PERSONAL HISTORY: Does not abuse alcohol or drugs. No history of smoking. Lives with his family. FAMILY HISTORY: Brother had history of [place] and another brother had history of cerebrovascular accident. REVIEW OF SYSTEMS: The following complete review of systems was negative, unless otherwise mentioned in the HPI or below: Constitutional: Weight loss or gain, ability to conduct usual activities. Skin: Rash, itching. Eyes: Double vision, pain. ENT/Mouth: Nose bleeding, neck stiffness, pain, tenderness. Cardiovascular: Palpitations, dyspnea on exertion, orthopnea. Respiratory: Shortness of breath, wheezing, cough, hemoptysis, fever or night sweats. Gastrointestinal: Poor appetite, abdominal pain, heartburn, nausea, vomiting, constipation, or diarrhea. Genitourinary: Urgency, frequency, dysuria, nocturia. Musculoskeletal: Pain, swelling. Neurologic/Psychiatric: Anxiety, depression. Allergy/Immunologic: Skin rash, bleeding tendency. PHYSICAL EXAMINATION: GENERAL: The patient is an 82-year-old male who is currently not in any acute distress. VITAL SIGNS: Blood pressure 136/80, pulse 80 per minute, respiratory rate 16 per minute, temperature 97.6 degrees Fahrenheit and saturating 94% on room air. NECK: Supple, no elevated JVD. EYES: Extraocular muscles intact. Pupils reacting to light. ORAL CAVITY: Mucous membranes are moist. No exudates or congestion. CARDIOVASCULAR SYSTEM: S1, S2 heard. Irregular rhythm. RESPIRATORY SYSTEM: Air entry 1+ bilaterally. No rales or rhonchi. ABDOMEN: Soft, bowel sounds heard. No tenderness, rigidity or guarding. Has a PEG tube in. EXTREMITIES: No peripheral edema or calf tenderness. VASCULAR SYSTEM: Peripheral pulses 1+ bilateral, no ischemic ulcerations or gangrene. CENTRAL NERVOUS SYSTEM: Has mild right hemiparesis. Otherwise, no new acute focal signs seen. He is in fact moving all 4 extremities. Strength is 4/5 in right upper and lower extremities and left 5/5. The patient has aphasia and dysarthria, but is able to communicate few words. PSYCHIATRIC SYSTEM: Patient's mood is euthymic. No obvious hallucinations or delusions. LABORATORY DATA AND X-RAY FINDINGS: White count of 7, hemoglobin and hematocrit 13 and 39, platelet count 228, MCV is 96 with 87% neutrophils. Electrolytes are stable. BUN 15, creatinine 1.0 and serum glucose 123. Troponin x3 is negative. Albumin is 3.7. CT angio neck done shows findings consistent with complete infarct seen in the left MCA distribution, which was seen on prior imaging on 08/22/2017. There is some reconstitution of flow in the left M1 branch. 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 EKG done shows atrial fibrillation at 81 beats per minute. CLINICAL IMPRESSION AND PLAN: The patient will be shortly discharged home. He likely had an episode of transient ischemic attack/acute encephalopathy at home which is completely resolved at present. He is back to his baseline cognitive status. In fact had his breakfast this morning without aspiration or choking. He is also moving all 4 extremities now. The patient's prior right hemiparesis has improved at present with strength of almost 4/5 in right upper and lower extremities. He still has dysarthria and aphasia, but he is able to speak few words. He completely understands Thai conversation between family members and him. I have told family that in 4-6 weeks if he remains stable, his feeding tube can be removed by primary care physician in a followup in [facility]. He needs to continue his aspirin, Lipitor, finasteride, Flomax, Cozaar, and Synthroid as before. The family is ready to take him home as he is back to his baseline cognitive status. Please note this is a same day observation and admit discharge summary. JARRETT
--- NOTE | 2017-10-07 11:51 | CT ---
CTA OF THE HEAD AND NECK WITH PERFUSION EVALUATION 10/04/17 INDICATION: Reported stroke alert. Upon discussion with Dr. Montaño, Dr. Montaño noted that this is not a stroke alert and that this was ordered in error. Patient is reportedly weak but with history of recent left MCA infarct. COMPARISON: Prior CTA of the head and neck with perfusion evaluation dated 08/22/[address] of the brain dated and 09/04/17. TECHNIQUE: Multiple CTA images were obtained of the head and neck utilizing IV contrast with 3D reformatted imag ing. Perfusion images of the brain were constructed at a separate workstation by the medical technicians. A no ncontrast study was not submitted with this examination because of report of a noncontrast study william greene performed at a separate hospital. This was unable to be retrieved for my review prior to interpreti ng this evaluation. FINDINGS: CT PERFUSION EVALUATION: There is some diminished blood flow in area of the stable chronic encephalomalacia involving the left parietal region. There is subtle increased vascular flow to the region of the left frontal and left parietal region likely from luxury reperfusion of the patient's previously documented left MCA infarc t. There is changes of increased MTT in the region of the left MCA distribution infarct with some per ipheral areas of diminished transit within the left frontal and left parietal region likely represent ing zones with lack of luxury perfusion. The blood volume is diminished in the left temporal lobe, po rtions of the left parietal lobe as well as portions of the left frontal lobe likely related to compl ete infarcts of the left MCA distribution. CTA OF THE HEAD AND NECK: FINDINGS: There is loss of the normal naarnjo-white differentiation involving the left MCA distribution consistent with evolutionary changes of the patient's previously diagnosed left MCA distribution infarct. Septum pellucidum and third ventricle are midline. No definite intracranial hemorrhage is evident. Th ere is stable postsurgical change involving the left parietal skull. Areas of encephalomalacia involv ing the left occipital region are also stable. There has been some reconstitution of flow within the left MCA beyond the M1 branch. There is flow pr esent within the anterior cerebral arteries and right MCA as well as the FORGING MACHINE OPERATOR bilaterally. The basilar and left vertebral artery remain perfused. There is a left carotid basilar communication on image 187, series 2 which is stable. The right vertebral artery demonstrates some flow within the diminutive vessel. 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 T he left vertebral artery appears patent. Mild narrowing involving the proximal left subclavian artery is stable. there is some mild narrowing of the distal right common carotid artery. The interna carotid arteries bilaterally appear patent. Th ere is emphysematous change involving the lung apices. No enlarged lymph nodes are evident. There is multilevel spondylosis of the cervical spine. IMPRESSION: 1. Findings most consistent with completed infarct involving the left MCA distribution as seen o n the evaluation dated 08/22/17. 2. Some reconstitution of flow within the left M1 branch. The findings on the perfusion evaluati on likely indicative of some luxury perfusion to the left MCA distribution infarct altering interpret ation of the CT perfusion evaluation. 3. 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 4. 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 Left vertebral artery remai ns patent. 5. Mild narrowing of the proximal left subclavian artery is stable. 6. Mild narrowing involving the distal right common carotid artery, stable. 7. Findings were discussed with Dr. Montaño at 7 p.m. on 10/04/17.
== END 2017-10-05 12:09 | disposition home or self-care (01) ==
LOC: ERS 17:51 → 2SE 20:07
PROVIDERS: ADMIT Internal Medicine; ATTEND Internal Medicine
DX: R42 Dizziness and giddiness (principal); R53.1 Weakness; R11.10 Vomiting, unspecified; I69.351 Hemiplegia and hemiparesis following cerebral infarction affecting right dominant side; F03.90 Unspecified dementia, unspecified severity, without behavioral disturbance, psychotic disturbance, mood disturbance, and anxiety; E03.9 Hypothyroidism, unspecified; I10 Essential (primary) hypertension; E78.5 Hyperlipidemia, unspecified; Z79.82 Long term (current) use of aspirin; Z79.899 Other long term (current) drug therapy
CPT/HCPCS: 0042T; 36415; 36416; 70496; 70498; 80053; 81003; 81015; 82553; 83735; 84484; 85025; 85610; 85730; 93005; 96374; G0378; J2060

== ENCOUNTER 2018-01-17 23:30 | Emergency (ER) | payer MEDICAID, SELFPAY ==
--- NOTE | 2018-01-18 10:49 | RAD ---
KUB: Date: 01/18/18 PROVIDED CLINICAL HISTORY: PEG replacement. FINDINGS: Comparison with 09/04/17. Contrast material is noted within the stomach and proximal duodenum, as well as the patient's PEG tub e. The abdominal bowel gas pattern is nonspecific. The visualized lung bases appear clear. IMPRESSION: Intragastric placement of PEG tube. POS: ONELIA
[2018-01-18] MEDS ORDERED: MD-Gastroview 120 ML BOT ONE (12:46)
== END 2018-01-18 02:05 | disposition home or self-care (01) ==
LOC: ERS 23:30
DX: Z43.1 Encounter for attention to gastrostomy (principal); E03.9 Hypothyroidism, unspecified; Z86.73 Personal history of transient ischemic attack (TIA), and cerebral infarction without residual deficits
CPT/HCPCS: 43760; 74018

== ENCOUNTER 2018-03-24 20:35 | Inpatient (IN) | payer OTHER ==
[2018-03-24 21:45] LABS: #Lymphocytes 0.9 thou/uL (1.20-3.40); #Monocytes 0.4 thou/uL (0.11-0.59); #Neutrophils 4.7 thou/uL (1.40-6.50); %Basophils 0.5 % (0.0-1.0); %Eosinophils 0.6 % (0.0-10.0); %Monocytes 7.2 % (0.0-10.0); %Neutrophils 76.7 % (42.0-75.0); Hemoglobin 12.6 g/dL (14.0-18.0); Mean Corpuscular Hemoglobin 33.6 pg (27.0-31.0); Mean Corpuscular Volume 98.9 fL (78.0-98.0); Platelet Count 275 thou/uL (130-400); RBC Distribution Width 12.1 % (11.5-14.5); Red Blood Cell (RBC) Count 3.75 mill/uL (4.70-6.10); White Blood Cell (WBC) Count 6.1 thou/uL (4.8-10.8)
[2018-03-24 21:58] LABS: INR-International Normal Ratio 1.1; Prothrombin Time 14.1 SEC (12.0-14.7)
--- NOTE | 2018-03-24 21:58 | RAD ---
AP VIEW CHEST: 03/24/18 HISTORY: Cough. AP view chest is obtained on 03/24/18. Comparison made to previous exam from 09/04/17. AP view chest demonstrates cardiomegaly and pulmonary vascular congestion. No evidence of effusions, pneumonia, or pneumothorax seen. IMPRESSION: Cardiomegaly and pulmonary vascular congestion. Otherwise unremarkable AP view chest. POS: [facility]
[2018-03-24 22:05] LABS: ALT (SGPT) 40 U/L (8-55); AST (SGOT) 40 U/L (5-34); Albumin 3.2 g/dL (3.4-4.8); Alkaline Phosphatase 130 U/L (40-150); Anion Gap 12 mmol/L (10-20); BUN (Urea Nitrogen) 29 mg/dL (8.4-25.7); Bilirubin, Total 0.8 mg/dL (0.2-1.2); CK (CPK) 52 U/L (30-200); Calc. Creatinine Clearance 0 mL/min (70-130); Calcium 8.5 mg/dL (7.8-10.44); Carbon Dioxide 24 mmol/L (23-31); Chloride 90 mmol/L (98-107); Estimated GFR-MDRD 78; Globulin 2.9 g/dL (2.4-3.5); Glucose 113 mg/dL (83-110); Potassium 3.5 mmol/L (3.5-5.1); Protein, Total 6.1 g/dL (5.8-8.1); Sodium 122 mmol/L (136-145)
[2018-03-24 22:18] LABS: Bilirubin Negative (Negative); Blood, Urine Negative (Negative); Clarity CLEAR (Clear); Glucose, Urine (Dipstick) Negative (Negative); Leukocyte Negative (Negative); Nitrite Negative (Negative); Protein, Urine (Dipstick) Negative (Neg-Trace); Specific Gravity, Urine 1.013 (1.002-1.036)
[2018-03-25] MEDS ORDERED: Sodium Chloride 0.9% 1,000 ML IV SCH ×2 (01:37→02:50)
[2018-03-25 01:56] VITALS: BMI 22.3
[2018-03-25] MEDS ORDERED: Ondansetron HCl/PF 4 MG/2 ML Vial IVP PRN (03:08)
[2018-03-25] MEDS ORDERED: Acetaminophen 325 MG TAB PO PRN (03:08)
[2018-03-25] MEDS ORDERED: Acetaminophen 650 MG Suppository PR PRN (03:08)
[2018-03-25] MEDS ORDERED: Ondansetron ODT 4 MG TAB PO PRN (03:08)
--- NOTE | 2018-03-25 05:06 | HP ---
CHIEF COMPLAINT: Nausea, vomiting, diarrhea. HISTORIANS: and daughter. HISTORY OF PRESENT ILLNESS: This is an 82-year-old male with past medical history of hypothyroidism, BPH, hypertension, recent stroke in 08/2017, who is presenting with nausea, vomiting, and diarrhea. Per the family, patient vomited "black stuff" on Friday and after that the patient started having liquidy diarrhea x12 yesterday of the day prior to the admission and on the day of admission, the pat ient had diarrhea x2. Per the family, patient was recently started on antibiotics for bronchitis and finished his course of antibiotics on the day of admission. The patient was taking the antibiotics for cough which was ongoing for the past 10 days. After patient was found to have the diarrhea and v omiting, patient was sent to [facility] and the patient's primary care doctor advised the family to bring the patient to the emergency room. Of note, patient was diagnosed with stroke in 08/2017 and p atient has been nonverbal since then, patient uses a PEG. REVIEW OF SYSTEMS: Review of systems cannot be obtained from patient, since patient is nonverbal. PAST MEDICAL HISTORY: Refer to HPI. PAST SURGICAL HISTORY: Gastric tube. PSYCHIATRIC HISTORY: The patient is demented. SOCIAL HISTORY: Unknown at this time; however, per records, the patient lives at home with family. FAMILY HISTORY: Reviewed and noncontributory to this visit. KNOWN ALLERGIES: The patient does not have any allergies. CURRENT MEDICATIONS: Patient is on tamsulosin 0.4 mg, citalopram 20 mg daily, finasteride 5 mg daily , aspirin 81 mg daily, atorvastatin 20 mg daily, hyoscyamine 16.2/0.1037/0.0194 mg/0.0065 mg per 5 mL , levothyroxine 50 mcg, temazepam 15 mg, losartan/hydrochlorothiazide 100 mg/25 mg, amlodipine 10 mg, Fibersource HN 240 mL. PHYSICAL EXAMINATION: VITAL SIGNS: Blood pressure on admission was 102/44, pulse 64, respiratory rate of 18, O2 sat of 99 on room air. GENERAL APPEARANCE: The patient is lying on his left side, a little agitated, nonverbal, does not ap pear to be in any distress. HEENT: Normocephalic, atraumatic. Pupils are equally round and reactive to light. Post-surgical ri ght pupil. Patient is nonverbal and mucous membranes were dry. RESPIRATORY: Clear to auscultation bilaterally. CARDIOVASCULAR: Positive S1, S2. Regular rate and rhythm. No murmurs, no gallops, no rubs apprecia jagdish. ABDOMEN: PEG tube noted. No distention, no peritoneal sign, no rigidity, no guarding, no rebound. EXTREMITIES: Upper extremities: The patient had 5/5 upper extremity strength. No edema noted. Low er extremities: No edema noted at the lower extremities, 5/5 strength, moving extremities spontaneou sly. NEUROLOGIC: Cranial nerves II through XII intact. No focal neurologic deficits noted except that mansi cho is nonverbal. SKIN: Warm, dry, and intact. IMAGING: EKG, atrial fibrillation. Chest x-ray showed cardiomegaly and pulmonary vascular congestio n. ED COURSE: The patient was given 2 liters of normal saline. LABORATORY DATA: WBC 6.1, hemoglobin 12.6, hematocrit 37.1, MCV 98.9, RDW 12.1, platelet count is 27 5,000. PT 14.1, INR 1.1, sodium 122, potassium 3.5, chloride 90, carbon dioxide 24, anion gap is 12, BUN is 29, creatinine is 0.93, glucose 113. Lactic acid of 1.0. AST is 40, ALT is 40, alkaline raymundo sphatase 130. Creatinine kinase is 52. Albumin is 3.2. Urinalysis is negative for leukoesterase an d nitrites. ASSESSMENT AND PLAN: This is an 82-year-old male being admitted for: 1. Diarrhea, vomiting, and nausea, etiology unclear, but we will rule out Clostridium difficile infe ction. We will send now stool cultures. We will follow up with stool cultures and we will give the patient IV hydration since the patient has been having a lot of diarrhea. 2. Hyponatremia. Patient's sodium is 122, most likely due to dehydration. The patient's chloride i s 90. At this point, we are giving patient IV fluids. We will get sodium every 6 hours to assess th e patient's sodium. We have ordered for serum osmolality, urine osmolality, and urine spot sodium. We will find out the cause of hyponatremia, but the patient's hyponatremia is likely due to dehydrati on. 3. Dehydration. The patient's BUN and creatinine ratio is 20:1. At this point, we are giving patie nt IV gentle hydration. We will follow up in the morning and if the patient is well hydrated, we lisa l discontinue fluids. Of note, patient's echo in the past showed that patient's ejection fraction is 50-55%. Therefore, we will keep an eye on patient's fluid. Since the patient can be able to tolera te the fluids. 4. History of stroke. We will start patient on his home medication of aspirin, atorvastatin once e patient's medications are confirmed. 5. History of BPH. We will start patient on his home medications once we confirm medications. 6. History of insomnia. Continue the patient on trazodone p.r.n. once we confirm the patient's medi cations. 7. History of hypertension. We will continue patient on home medication. 8. History of hypothyroidism. We will continue the patient on home medication. 9. Deep venous thrombosis and gastrointestinal prophylaxis. We will do heparin for deep venous thro mbosis prophylaxis and Pepcid for gastrointestinal prophylaxis.
[2018-03-25 05:13] LABS: #Lymphocytes 1.3 thou/uL (1.20-3.40); #Monocytes 0.5 thou/uL (0.11-0.59); #Neutrophils 5.7 thou/uL (1.40-6.50); %Basophils 0.2 % (0.0-1.0); %Eosinophils 0.6 % (0.0-10.0); %Lymphocytes 17.5 % (21.0-51.0); %Monocytes 6.2 % (0.0-10.0); %Neutrophils 75.5 % (42.0-75.0); Hemoglobin 12.7 g/dL (14.0-18.0); Mean Corpuscular HGB CONC 33.7 g/dL (32.0-36.0); Mean Corpuscular Hemoglobin 33.2 pg (27.0-31.0); Mean Corpuscular Volume 98.4 fL (78.0-98.0); Mean Platelet Volume 6.4 fL (7.4-10.4); Platelet Count 293 thou/uL (130-400); RBC Distribution Width 12.2 % (11.5-14.5); Red Blood Cell (RBC) Count 3.82 mill/uL (4.70-6.10); White Blood Cell (WBC) Count 7.5 thou/uL (4.8-10.8)
[2018-03-25 05:36] LABS: Anion Gap 12 mmol/L (10-20); BUN (Urea Nitrogen) 23 mg/dL (8.4-25.7); Calc. Creatinine Clearance 68 mL/min (70-130); Calcium 8.6 mg/dL (7.8-10.44); Carbon Dioxide 22 mmol/L (23-31); Chloride 96 mmol/L (98-107); Estimated GFR-MDRD Greater than 90; Glucose 91 mg/dL (83-110); Potassium 3.3 mmol/L (3.5-5.1); Sodium 127 mmol/L (136-145)
[2018-03-25 06:21] LABS: Osmolality, Urine 189 mOsm/kg (300-900)
[2018-03-25 06:36] LABS: Sodium, Urine 45 mmol/L (Not Available)
[2018-03-25 09:51] LABS: Anion Gap 8 mmol/L (10-20); BUN (Urea Nitrogen) 19 mg/dL (8.4-25.7); Calc. Creatinine Clearance 72 mL/min (70-130); Calcium 8.5 mg/dL (7.8-10.44); Carbon Dioxide 25 mmol/L (23-31); Chloride 98 mmol/L (98-107); Estimated GFR-MDRD Greater than 90; Glucose 87 mg/dL (83-110); Sodium 128 mmol/L (136-145)
[2018-03-25] MEDS: Heparin 5,000 UNITS/ML VIAL SC SCH ×3 (10:24→22:15)
[2018-03-25] MEDS: Famotidine/PF 20 mg/2ml Vial SLOW IVP SCH ×2 (10:24→22:15)
[2018-03-25] MEDS: Finasteride 5 MG TAB PO SCH (10:25)
--- NOTE | 2018-03-25 11:00 | PDOC.PN ---
- Subjective Encounter Start Date: 03/25/18 Encounter Start Time: 10:50 Subjective: f/u for N/V/D with hyponatremia on current IVF's. No new complaints. -: Family states pt looking more alert. - Objective Resuscitation Status: Resuscitation Status FULL:Full Resuscitation MAR Reviewed: Yes Vital Signs & Weight: Vital Signs (12 hours) Temp Pulse Resp BP Pulse Ox 03/25/18 08:07 98.4 F 74 18 114/67 92 L 03/25/18 04:37 97.1 F L 71 18 108/55 L 96 03/25/18 01:30 96 03/25/18 01:25 97.6 F 78 16 108/54 L 96 Weight Weight 146 lb 12.8 oz I&O: 03/24/18 03/25/18 03/26/18 06:59 06:59 06:59 Intake Total 283 Balance 283 Result Diagrams: 03/25/18 04:26 03/25/18 09:00 Additional Labs: Microbiology 03/24/18 22:20 Stool - Pending Stool Occult Blood (KALANI) - Final 03/24/18 21:36 Venous blood - Right Hand Blood Culture - Preliminary Specimen has been received and culture in progress. No Growth to date. 03/24/18 21:36 Venous blood - Left Arm Blood Culture - Preliminary Specimen has been received and culture in progress. No Growth to date. Laboratory Tests 03/24/18 03/24/18 03/24/18 21:32 21:32 21:32 Hgb 12.6 L Neutrophils % 76.7 H Sodium 122 L Potassium 3.5 Lactic Acid 1.0 03/25/18 03/25/18 04:26 04:26 Hgb Neutrophils % 75.5 H Sodium 127 L Potassium 3.3 L Lactic Acid Radiology Reviewed by me: Yes (PCXR - pulm vasc prominence) EKG Reviewed by me: Yes (Tele - A-fib in 70's) Phys Exam - Physical Examination Constitutional: NAD HEENT: PERRLA, sclera anicteric, oral pharynx no lesions Neck: no nodes, no JVD, supple, full ROM Respiratory: no wheezing, no rhonchi, clear to auscultation bilateral PEG site CDI Gastrointestinal: soft, non-tender, no distention, positive bowel sounds Musculoskeletal: no edema, pulses present Neurological: moves all 4 limbs flat affect, non-verbal Skin: no rash, normal turgor, cap refill <2 seconds Dx/Plan (1) Nausea & vomiting Code(s): R11.2 - NAUSEA WITH VOMITING, UNSPECIFIED Status: Acute Comment: Likely multifactorial with component of recent antibiotic exposure, antiemetics , IVF's (2) Dehydration Code(s): E86.0 - DEHYDRATION Status: Acute Comment: Improved, continue IVF' s (3) Hyponatremia Code(s): E87.1 - HYPO-OSMOLALITY AND HYPONATREMIA Status: Acute Comment: Likely due to dehydration effect, improving with IVF's, serial Na+ monitoring (4) Hypokalemia Code(s): E87.6 - HYPOKALEMIA Status: Acute Comment: Start Klor-con 40meq PT BID, repeat K+ level in am (5) Hypertension Code(s): I10 - ESSENTIAL (PRIMARY) HYPERTENSION Status: Chronic Qualifiers: Hypertension type: essential hypertension Comment: Stable, continue home BP regimen (6) Dysphagia as late effect of cerebrovascular accident (CVA) Code(s): I69.391 - DYSPHAGIA FOLLOWING CEREBRAL INFARCTION Status: Chronic Comment: PEG tube feeds, NPO - Plan plan discussed w/ family, PT/OT, social worker psychiatric, DVT proph w/SCDs Stable overall -: Continue IVF's another 24h -: Start KCL 40meq BID -: TF's to resume per dietitian recs -: PT evaluation for functional assessment * AM lab: BMP * Likely home in 24h
[2018-03-25 15:36] LABS: Anion Gap 9 mmol/L (10-20); BUN (Urea Nitrogen) 17 mg/dL (8.4-25.7); Calc. Creatinine Clearance 70 mL/min (70-130); Calcium 8.5 mg/dL (7.8-10.44); Carbon Dioxide 24 mmol/L (23-31); Chloride 100 mmol/L (98-107); Estimated GFR-MDRD Greater than 90; Glucose 114 mg/dL (83-110); Potassium 3.4 mmol/L (3.5-5.1); Sodium 130 mmol/L (136-145)
[2018-03-25] MEDS ORDERED: Atorvastatin Calcium 20 MG TAB PER TUBE SCH (21:00)
[2018-03-25 21:55] LABS: Anion Gap 8 mmol/L (10-20); BUN (Urea Nitrogen) 17 mg/dL (8.4-25.7); Calc. Creatinine Clearance 69 mL/min (70-130); Calcium 8.9 mg/dL (7.8-10.44); Carbon Dioxide 27 mmol/L (23-31); Chloride 100 mmol/L (98-107); Estimated GFR-MDRD Greater than 90; Glucose 107 mg/dL (83-110); Potassium 4.3 mmol/L (3.5-5.1); Sodium 131 mmol/L (136-145)
[2018-03-26] MEDS ORDERED: Levothyroxine Sodium 50 MCG TAB PO SCH (06:00)
[2018-03-26 08:04] VITALS: BP 145/65; TEMP 97
[2018-03-26] MEDS ORDERED: Aspirin 81 mg Enteric Coated Tablet PO SCH (09:00)
[2018-03-26] MEDS ORDERED: Amlodipine 10 MG TAB PO SCH (09:00)
[2018-03-26] MEDS ORDERED: Citalopram 20 MG TAB PO SCH (09:00)
[2018-03-26] MEDS ORDERED: Tamsulosin HCl 0.4 MG CAP PO SCH (09:00)
[2018-03-26] MEDS: Heparin 5,000 UNITS/ML VIAL SC SCH (09:30)
[2018-03-26] MEDS: Famotidine/PF 20 mg/2ml Vial SLOW IVP SCH (09:30)
[2018-03-26] MEDS: Finasteride 5 MG TAB PO SCH (09:30)
--- NOTE | 2018-03-26 13:26 | DIS ---
DATE OF ADMISSION: 03/24/2018 DATE OF DISCHARGE: 03/26/2018 DISCHARGE DIAGNOSES: 1. Nausea, vomiting, likely iatrogenic, resolved. 2. Dehydration, resolved. 3. Hyponatremia, improved. 4. Hypokalemia, resolved. 5. Hypertension, stable. 6. History of cerebrovascular accident with dysphagia. 7. Status post PEG tube placement. CONSULTATIONS: None. PERTINENT LAB AND X-RAY FINDINGS: Sodium ranged between 120-131, potassium ranged between 3.3-4.3, c reatinine ranged between 0.74-0.93. Albumin 3.2. CBC showed a hemoglobin of 12.7, hematocrit 38, pl atelet count 293. Blood cultures x2 dated 03/24/2018 showed no growth to date. Stool Hemoccult nega tive x1 on 03/24/2018. Portable chest x-ray dated 03/24/2018 showed pulmonary vascular prominence. HOSPITAL COURSE: The patient was initially admitted to the telemetry unit after presenting with naus ea, vomiting, and diarrhea after recent prescription for antibiotic therapy for bronchitis. The [facility] with multiple electrolyte abnormalities including hyponatremia and hypokalemia likely due to the volume loss with diarrhea and vomiting. The patient received IV fluids as well as potassium suppleme ntation and overall clinically stabilized with supportive management. The patient was resumed on tub e feedings with Jevity 1.5 tolerating without difficulty. The patient was functional at baseline lev els prior to discharge and overall remained clinically stable in the telemetry unit with chronic atri al fibrillation showing rate controlled with heart rates in the 50s to 70s. I have examined the [facility] ent at the time of discharge and discussed followup instructions. The patient's family verbalized un derstanding and agreement. The patient ready for discharge on 03/26/2018. DISCHARGE MEDICATIONS: 1. Amlodipine 10 mg 1 tab p.o. daily. 2. Enteric-coated aspirin 81 mg p.o. daily. 3. Celexa 20 mg p.o. daily. 4. Finasteride 5 mg p.o. daily. 5. Levsin 0.125 mg p.o. p.r.n. 6. Temazepam 15 mg p.o. at bedtime p.r.n. 7. Lipitor 20 mg per PEG tube daily. 8. Levothyroxine 50 mcg per PEG tube daily. 9. Cozaar 100 mg per PEG tube daily. 10. Flomax 0.4 mg per PEG tube daily. FOLLOWUP: The patient to follow up with his primary care provider at [facility] within 7 days of di karen. CONDITION ON DISCHARGE: Stable. ACTIVITY: Ad johnnie. DIET: Tube feedings up to 5 cans per day. CODE STATUS: FULL. DISPOSITION: Home 03/26/2018. Total time preparing and coordinating discharge is 34 minutes.
--- NOTE | 2018-03-28 17:56 | EKG ---
Test Reason : Blood Pressure : / mmHG Vent. Rate : 067 BPM Atrial Rate : 078 BPM P-R Int : 000 ms QRS Dur : 102 ms QT Int : 444 ms P-R-T Axes : 000 -62 -02 degrees QTc Int : 469 ms Atrial fibrillation Left axis deviation Abnormal ECG Confirmed by MARVIN TRIVEDI DO ([id number]), multimedia editor CARMINA LANDIS ([id number]) on 03/28/2018 5:56:13 PM Referred By: FAROOQ Confirmed By:MARVIN TRIVEDI DO
== END 2018-03-26 12:05 | disposition home or self-care (01) | DRG 641 ==
LOC: ERS 20:35 → 2NO 23:00
PROVIDERS: ADMIT Internal Medicine; ATTEND Internal Medicine
DX: E86.0 Dehydration (principal); R11.2 Nausea with vomiting, unspecified; E87.1 Hypo-osmolality and hyponatremia; E87.6 Hypokalemia; I10 Essential (primary) hypertension; I69.391 Dysphagia following cerebral infarction; R13.10 Dysphagia, unspecified; N40.0 Benign prostatic hyperplasia without lower urinary tract symptoms
CPT/HCPCS: 36415; 51701; 71045; 80048; 80053; 81003; 82274; 82550; 83605; 83930; 83935; 84300; 85025; 85610; 87040; 93005; 96360; 96361; J1644; S0028

== ENCOUNTER 2018-06-22 21:23 | Inpatient (IN) | payer MEDICAID, OTHER ==
[2018-06-22 22:18] LABS: #Lymphocytes 1.3 thou/uL (1.20-3.40); #Monocytes 0.4 thou/uL (0.11-0.59); #Neutrophils 4.1 thou/uL (1.40-6.50); %Basophils 0.7 % (0.0-1.0); %Eosinophils 0.3 % (0.0-10.0); %Lymphocytes 21.6 % (21.0-51.0); %Monocytes 7.1 % (0.0-10.0); %Neutrophils 70.4 % (42.0-75.0); Hemoglobin 13.4 g/dL (14.0-18.0); Mean Corpuscular HGB CONC 34.9 g/dL (32.0-36.0); Mean Corpuscular Hemoglobin 34.5 pg (27.0-31.0); Mean Corpuscular Volume 98.9 fL (78.0-98.0); Mean Platelet Volume 7.1 fL (7.4-10.4); Platelet Count 246 thou/uL (130-400); RBC Distribution Width 11.9 % (11.5-14.5); Red Blood Cell (RBC) Count 3.87 mill/uL (4.70-6.10); White Blood Cell (WBC) Count 5.8 thou/uL (4.8-10.8)
[2018-06-22 22:34] LABS: ALT (SGPT) 33 U/L (8-55); AST (SGOT) 30 U/L (5-34); Albumin 3.4 g/dL (3.4-4.8); Alkaline Phosphatase 95 U/L (40-150); Anion Gap 9 mmol/L (10-20); BUN (Urea Nitrogen) 32 mg/dL (8.4-25.7); Bilirubin, Total 0.8 mg/dL (0.2-1.2); CK (CPK) 55 U/L (30-200); Calc. Creatinine Clearance 0 mL/min (70-130); Calcium 9.2 mg/dL (7.8-10.44); Carbon Dioxide 27 mmol/L (23-31); Chloride 91 mmol/L (98-107); Estimated GFR-MDRD 71; Globulin 3.3 g/dL (2.4-3.5); Glucose 100 mg/dL (83-110); Lipase 20 U/L (8-78); Potassium 3.5 mmol/L (3.5-5.1); Protein, Total 6.7 g/dL (5.8-8.1); Sodium 123 mmol/L (136-145)
[2018-06-22 22:53] LABS: Bilirubin Negative (Negative); Blood, Urine Negative (Negative); Clarity CLEAR (Clear); Glucose, Urine (Dipstick) Negative (Negative); Leukocyte Large (Negative); Nitrite Negative (Negative); Protein, Urine (Dipstick) Negative (Neg-Trace); Specific Gravity, Urine 1.011 (1.002-1.036); pH, Urine 7.5 (5.0-9.0)
[2018-06-22 22:54] LABS: Bacteria/HPF None Seen HPF (None Seen); Hyaline Casts/LPF 0-3 HYALINE CAST LPF (0-3 Hyaline); RBC/HPF 0-3 HPF (0-3); Squamous Epithelial None Seen HPF (0-3); WBC/HPF 21-50 HPF (0-3)
[2018-06-22] MEDS ORDERED: Acetaminophen 325 MG TAB PER TUBE PRN (23:12)
[2018-06-22] MEDS ORDERED: Bisacodyl 5 MG TAB PO PRN (23:12)
[2018-06-22] MEDS ORDERED: Calcium Carbonate 500 MG ChewTAB PO PRN (23:12)
[2018-06-22] MEDS ORDERED: Senokot S 8.6-50 MG TAB PO PRN (23:12)
[2018-06-22] MEDS ORDERED: Temazepam 15 MG CAP PO PRN (23:15)
[2018-06-23 03:40] LABS: #Lymphocytes 1.4 thou/uL (1.20-3.40); #Monocytes 0.4 thou/uL (0.11-0.59); #Neutrophils 3.4 thou/uL (1.40-6.50); %Basophils 0.2 % (0.0-1.0); %Eosinophils 0.2 % (0.0-10.0); %Lymphocytes 27.4 % (21.0-51.0); %Neutrophils 65.1 % (42.0-75.0); Hemoglobin 13.1 g/dL (14.0-18.0); Mean Corpuscular Hemoglobin 33.1 pg (27.0-31.0); Mean Corpuscular Volume 97.3 fL (78.0-98.0); Mean Platelet Volume 6.4 fL (7.4-10.4); Platelet Count 239 thou/uL (130-400); RBC Distribution Width 11.6 % (11.5-14.5); Red Blood Cell (RBC) Count 3.95 mill/uL (4.70-6.10); White Blood Cell (WBC) Count 5.3 thou/uL (4.8-10.8)
--- NOTE | 2018-06-23 07:30 | HP ---
CHIEF COMPLAINT: Worsening confusion. HISTORY OF PRESENT ILLNESS: This is an 83-year-old male with past medical history of hypothyroidism, BPH, hypertension, previous stroke in August 2017, and recently being in the hospital for diarrhea, presenting with alteration of awareness and generalized weakness. The patient was brought in by the family because the patient has not been at his baseline. The patient's mentation is now worsened from the baseline. Per the family, the patient has been getting weak and is having difficulty with ambulation and the patient normally passes out. Of note, the patient has always had difficulty with ambulation and this does not seem to be new for the patient; however, the family is just concerned because the patient has been altered and is not at his baseline at this time. Upon further evaluation in our ED, the patient was found to be dehydrated and also the patient had UTI and hyponatremia of 123. At this point, the patient is being admitted to be managed for the dehydration and hyponatremia and also to receive antibiotics for the UTI. Of note, the patient had a stroke in August 2017 with some left-sided deficits. The patient is baseline nonverbal. The patient also has history of dementia. The patient uses a PEG tube. REVIEW OF SYSTEMS: Cannot be obtained since the patient is altered. PAST MEDICAL HISTORY: Hypothyroidism, BPH, hypertension, stroke in August 2017, diarrhea in May of 2018. PAST SURGICAL HISTORY: The patient has a gastric tube in place. PSYCHIATRIC HISTORY: The patient is demented. SOCIAL HISTORY: Records the patient does not drink. Does not use any illicit drugs. The patient does not smoke. The patient lives with family. FAMILY HISTORY: Reviewed and noncontributory to this visit. ALLERGIES: NO KNOWN DRUG ALLERGIES. CURRENT MEDICATIONS: The patient takes, 1. Tamsulosin. 2. Citalopram 20 mg daily, finasteride 5 mg daily, aspirin 81 mg daily, atorvastatin 20 mg daily. 16.2/0.1037/0.0194. 3. Levothyroxine 50 mcg. 4. Temazepam 15 mg. 5. Losartan-hydrochlorothiazide 100 mg/25 mg. 6. Amlodipine 10 mg. PHYSICAL EXAMINATION: VITAL SIGNS: Blood pressure is 119/55, pulse of 55, respiratory rate of 19, O2 saturation of 97. GENERAL: The patient is lying in bed. The patient is confused, awake, alert, oriented x0. The patient does not appear to be in any acute distress. HEENT: Normocephalic, atraumatic. Pupils are equally round and reactive to light. Extraocular movements are intact. No scleral icterus. No conjunctival pallor. Mucous membranes are dry. NECK: Trachea is midline. Full range of motion. No JVD. LUNGS: Clear to auscultation bilaterally. No wheezing, no rales, no rhonchi appreciated. CARDIAC: Positive S1 and S2. Regular rate and rhythm. No murmurs, no gallops, no rubs appreciated. ABDOMEN: PEG tube is in place and is noted. There is no dehiscence. No ecchymosis around the PEG tube. No distention. No peritoneal signs. No rigidity. No guarding. No rebound. EXTREMITIES: The patient has 5/5 upper extremity strength and good pulses bilaterally at the upper extremity. At the lower extremity, the patient has 5/5 lower extremity strength. No edema noted. Good pulses bilaterally at the lower extremity. NEUROLOGIC: Cranial nerves 2 through 12 grossly intact. No neurologic deficits noted. The patient is nonverbal. SKIN: Warm, dry, and intact. IMAGING DATA: EKG shows an atrial fibrillation. LABORATORY DATA: WBC is 5.8, hemoglobin is 13.4, hematocrit is 38.3, MCV is 98.9, RDW is 11.9, platelet count is 246. Sodium is 123, potassium is 3.5, chloride is 9.1, carbon dioxide of 27, anion gap of 9, BUN is 32, creatinine is 1.00. Serum osmolality is 268. TSH is 5.3010. Urinalysis, large leukocyte esterase is noted. ASSESSMENT AND PLAN: This is an 83-year-old male with multiple comorbidities being admitted for, 1. Encephalopathy likely secondary to urinary tract infection. At this point, the patient has been started on antibiotics. We are going to continue the patient on antibiotics. We are going to continue with gentle hydration. We are going to monitor the patient's mental status. 2. Worsening dementia, likely due to underlying infection. At this time, we are going to continue the patient on current management, and we will monitor the patient's mental status. 3. Hyponatremia, likely due to dehydration. At this point, the patient's BUN and creatinine ratio is greater than 20:1. At this point, we are going to continue IV hydration. We are going to get urine spot sodium and serum osmo. We are going to determine the cause of hyponatremia, and we will treat accordingly. 4. Generalized weakness and deconditioning due to worsening dementia and underlying illness. At this point, we will continue to manage the patient, and the patient will benefit from Nutrition consult to get further nutrition. The patient is also going to benefit from physical therapy. When the patient is clinically stable, PT evaluation will be needed to further assess the patient's condition. 5. Hypothyroidism. Currently, the patient's TSH is a little elevated at 5.30. We will follow up on T4. We will continue the patient on his home medications. 6. Hypertension. We will monitor the patient's blood pressure closely, and we will adjust the patient's blood pressure to treat patient's hypertension. 7. Deep vein thrombosis/gastrointestinal prophylaxis. Job ID: [id number]
[2018-06-23 08:33] LABS: Anion Gap 10 mmol/L (10-20); BUN (Urea Nitrogen) 23 mg/dL (8.4-25.7); Calc. Creatinine Clearance 0 mL/min (70-130); Calcium 9.2 mg/dL (7.8-10.44); Carbon Dioxide 23 mmol/L (23-31); Chloride 98 mmol/L (98-107); Estimated GFR-MDRD 88; Glucose 82 mg/dL (83-110); Potassium 3.3 mmol/L (3.5-5.1); Sodium 128 mmol/L (136-145)
--- NOTE | 2018-06-23 08:38 | RAD ---
CHEST ONE VIEW PORTABLE: History: 83-year-old male with altered mental status. Comparison: 03-24-18 FINDINGS: Monitor leads overlie the chest. Heart size is borderline enlarged. No confluent pneumonia, overt mar ma, or pleural effusion. IMPRESSION: Borderline heart size. No pneumonia, edema, or other acute process. Atherosclerosis of the aorta with ectasia. POS: [facility]
[2018-06-23] MEDS ORDERED: Aspirin 81 mg Enteric Coated Tablet PO SCH (09:00)
[2018-06-23] MEDS ORDERED: Famotidine 20 MG TAB ONE (09:03)
[2018-06-23] MEDS ORDERED: Enoxaparin Sodium 40 MG/0.4 ML SYRINGE ONE (09:03)
[2018-06-23] MEDS ORDERED: cefTRIAXone\\ROCEPHIN 2 GM VIAL ONE ×2 (09:42→09:44)
[2018-06-23] MEDS ORDERED: Sodium Chloride 0.9% 100 ML ONE (09:42)
[2018-06-23] MEDS: cefTRIAXone\\ROCEPHIN 2 GM in Sodium Chloride 0.9% 100 ML IVPB SCH (09:53)
[2018-06-23] MEDS: Amlodipine 10 MG TAB PER TUBE SCH (09:53)
[2018-06-23] MEDS: Enoxaparin Sodium 40 MG/0.4 ML SYRINGE SC SCH (09:54)
[2018-06-23] MEDS: Famotidine 20 MG TAB PER TUBE SCH ×2 (09:54→20:13)
[2018-06-23] MEDS: Losartan 25 MG TAB PER TUBE SCH (09:54)
[2018-06-23] MEDS: Levothyroxine Sodium 50 MCG TAB PO SCH (11:56)
[2018-06-23] MEDS: Famotidine/PF 20 mg/2ml Vial SLOW IVP SCH ×2 (11:58→20:13)
[2018-06-23] MEDS: Tamsulosin HCl 0.4 MG CAP PO SCH (12:14)
[2018-06-23] MEDS: Finasteride 5 MG TAB PO SCH (12:15)
[2018-06-23 12:29] VITALS: BMI 27.5
--- NOTE | 2018-06-23 14:16 | EKG ---
Test Reason : Blood Pressure : / mmHG Vent. Rate : 059 BPM Atrial Rate : 170 BPM P-R Int : 000 ms QRS Dur : 118 ms QT Int : 442 ms P-R-T Axes : 000 -73 075 degrees QTc Int : 437 ms Atrial fibrillation with slow ventricular response Left axis deviation Incomplete left bundle branch block Abnormal ECG Confirmed by ERIN ANDERSON, EVELIN ([id number]), newspaper editor managing KINGSLEY LOPEZ ([id number]) on 06/23/2018 2:15:57 PM Referred By: Confirmed By:EVELIN KHAN MD
[2018-06-23 14:28] LABS: Anion Gap 9 mmol/L (10-20); BUN (Urea Nitrogen) 24 mg/dL (8.4-25.7); Calc. Creatinine Clearance 67 mL/min (70-130); Calcium 8.9 mg/dL (7.8-10.44); Carbon Dioxide 25 mmol/L (23-31); Chloride 100 mmol/L (98-107); Estimated GFR-MDRD 82; Glucose 113 mg/dL (83-110); Potassium 3.3 mmol/L (3.5-5.1); Sodium 131 mmol/L (136-145)
[2018-06-23 14:55] LABS: Osmolality, Urine 341 mOsm/kg (300-900)
[2018-06-23 15:17] LABS: Sodium, Urine Less than 20 mmol/L (Not Available)
--- NOTE | 2018-06-23 15:54 | PDOC.PN ---
- Subjective Encounter Start Date: 06/23/18 Encounter Start Time: 15:35 Subjective: f/u for encephalopathy, dehydration, hyponatremia. Remains confused -: tolerating resumption of home TF's. Baseline dementia per family -: and aphasic needing assistance with all ADL's. - Objective Resuscitation Status - Order Detail: 06/23/18 14:46 Resuscitation Status Routine Resuscitation Status: DNAR: NO Resuscitation Discussed with: confirmed with JENIFER Barksdale Sung her translating Additional comments: refusing resus efforts, comfort and supportive care only MAR Reviewed: Yes Vital Signs & Weight: Vital Signs (12 hours) Temp Pulse Resp BP Pulse Ox 06/23/18 11:30 94 L 06/23/18 11:00 98.3 F 70 16 109/66 94 L Weight Weight 165 lb 5.547 oz I&O: 06/22/18 06/23/18 06/24/18 06:59 06:59 06:59 Intake Total 280 Balance 280 Result Diagrams: 06/23/18 03:32 06/23/18 13:55 Additional Labs: Microbiology 06/22/18 22:03 Venous blood - Right Hand Blood Culture - Preliminary Specimen has been received and culture in progress. No Growth to date. 06/22/18 22:03 Venous blood - Left Arm Blood Culture - Preliminary Specimen has been received and culture in progress. No Growth to date. Laboratory Tests 06/22/18 06/22/18 06/22/18 21:50 21:50 21:50 Sodium 123 L Lactic Acid 1.6 TSH 3rd Generation 5.3010 H Cortisol 06/23/18 06/23/18 03:32 08:01 Sodium 128 L Lactic Acid TSH 3rd Generation Cortisol 7.00 Radiology Reviewed by me: Yes (PCXR - no acute infiltrate) Phys Exam - Physical Examination agitated, does not track with eyes, mild distress HEENT: PERRLA, sclera anicteric, oral pharynx no lesions Neck: no nodes, no JVD, supple, full ROM Respiratory: no wheezing, no rales, no rhonchi, clear to auscultation bilateral S1, S2 Cardiovascular: RRR, no significant murmur, no rub, gallop + PEG tube in place Gastrointestinal: soft, non-tender, no distention, positive bowel sounds Musculoskeletal: no edema, pulses present Neurological: moves all 4 limbs Skin: normal turgor, cap refill <2 seconds Dx/Plan (1) UTI (urinary tract infection) Status: Acute Comment: Suspected, Ucx pending, continue Rocephin IV daily (2) Hyponatremia Code(s): E87.1 - HYPO-OSMOLALITY AND HYPONATREMIA Status: Acute Comment: Likely due to dehydration effect, improving with IVF's, serial Na+ monitoring, ? component of HCTZ/Celexa (3) Metabolic encephalopathy Code(s): G93.41 - METABOLIC ENCEPHALOPATHY Status: Acute Comment: Likely metabolic etiology given UTI and advanced dementia (4) Dementia Code(s): F03.90 - UNSPECIFIED DEMENTIA WITHOUT BEHAVIORAL DISTURBANCE Status: Chronic Qualifiers: Dementia type: unspecified type Dementia behavioral disturbance: with behavioral disturbance Qualified Code(s): F03.91 - Unspecified dementia with behavioral disturbance Comment: Continue re-orientation with family members (5) Hypertension Code(s): I10 - ESSENTIAL (PRIMARY) HYPERTENSION Status: Chronic Qualifiers: Hypertension type: essential hypertension Qualified Code(s): I10 - Essential (primary) hypertension Comment: Stable, continue home BP regimen (6) Hypothyroidism Code(s): E03.9 - HYPOTHYROIDISM, UNSPECIFIED Status: Chronic Qualifiers: Comment: Continue Levothyroxine 50mcg daily - Plan plan discussed w/ family, continue antibiotics, PT/OT, social sciences instructor, DVT proph w/SCDs Stable currently -: Continue Rocephin daily -: Await for final Ucx results -: Hold HCTZ -: Nutritional support with TF's bolus * AM lab: BMP, CBC, Mg++
[2018-06-23] MEDS: Atorvastatin Calcium 20 MG TAB PER TUBE SCH (20:13)
[2018-06-23 20:51] LABS: Anion Gap 7 mmol/L (10-20); Calc. Creatinine Clearance 65 mL/min (70-130); Calcium 8.7 mg/dL (7.8-10.44); Carbon Dioxide 26 mmol/L (23-31); Chloride 97 mmol/L (98-107); Estimated GFR-MDRD 79; Glucose 123 mg/dL (83-110); Potassium 3.4 mmol/L (3.5-5.1); Sodium 127 mmol/L (136-145)
[2018-06-23 21:48] LABS: BUN (Urea Nitrogen) 25 mg/dL (8.4-25.7)
[2018-06-24 02:27] LABS: Anion Gap 13 mmol/L (10-20); BUN (Urea Nitrogen) 23 mg/dL (8.4-25.7); Calc. Creatinine Clearance 70 mL/min (70-130); Carbon Dioxide 23 mmol/L (23-31); Chloride 97 mmol/L (98-107); Estimated GFR-MDRD 86; Glucose 87 mg/dL (83-110); Potassium 3.6 mmol/L (3.5-5.1); Sodium 129 mmol/L (136-145)
[2018-06-24 02:56] LABS: Band 3 % (5-11); Hemoglobin 12.9 g/dL (14.0-18.0); Hypochromia SLIGHT = 6-15 cells (100X) (0-5/hpf); Lymphocytes 7 % (21-51); MDiff Complete? YES; Mean Corpuscular Hemoglobin 35.7 pg (27.0-31.0); Mean Corpuscular Volume 99.2 fL (78.0-98.0); Mean Platelet Volume 6.2 fL (7.4-10.4); Monocytes 2 % (0-10); Neutrophil 88 % (42-75); PLT Morphology Comment Appears Adequate; Platelet Count 218 thou/uL (130-400); RBC Distribution Width 11.9 % (11.5-14.5); Red Blood Cell (RBC) Count 3.61 mill/uL (4.70-6.10); White Blood Cell (WBC) Count 5.7 thou/uL (4.8-10.8)
[2018-06-24] MEDS: Levothyroxine Sodium 50 MCG TAB PO SCH (05:18)
[2018-06-24] MEDS: Amlodipine 10 MG TAB PER TUBE SCH (07:59)
[2018-06-24] MEDS: cefTRIAXone\\ROCEPHIN 2 GM in Sodium Chloride 0.9% 100 ML IVPB SCH (07:59)
[2018-06-24] MEDS: Enoxaparin Sodium 40 MG/0.4 ML SYRINGE SC SCH (08:02)
[2018-06-24] MEDS: Famotidine 20 MG TAB PER TUBE SCH ×2 (08:03→20:22)
[2018-06-24] MEDS: Finasteride 5 MG TAB PO SCH (08:03)
[2018-06-24] MEDS: Famotidine/PF 20 mg/2ml Vial SLOW IVP SCH ×2 (08:03→20:22)
[2018-06-24] MEDS: Tamsulosin HCl 0.4 MG CAP PO SCH (08:04)
[2018-06-24] MEDS: Losartan 25 MG TAB PER TUBE SCH (08:04)
--- NOTE | 2018-06-24 11:37 | PQF ---
DATE: 06-24-18 ATTN: DR. LYUDMILA WYMAN Please exercise your independent, professional judgment in responding to the clarification form. Clinical indicators are provided on the bottom of this form for your review Please check appropriate box(s): [ x ] Encephalopathy: Type: [ x ] Acute [ ] Subacute [ ] Chronic Etiology: [ x] Metabolic [ ] Toxic [ ] Other (please specify) [ ] Transient Alteration of Awareness [ ] Other diagnosis [ ] Unable to determine In addition, please specify: Present on Admission (POA): [ x ] Yes [ ] No [ ] Unable to determine For continuity of documentation, please document condition throughout progress notes and discharge summary. Thank You. CLINICAL INDICATORS - SIGNS / SYMPTOMS / LABS ER: DEHYDRATED, WEAK ER DX: HYPONATREMIA, UTI H&P: WORSENING CONFUSION, THE PATIENTS MENTATION IS NOW WORSENED FROM THE BASELINE. PT IS CONFUSED, AWAKE, ALERT, ORIENTED X0. H&P: ENCEPHALOPATHY LIKELY SECONDARY TO UTI RISK FACTORS: H&P: ENCEPHALOPATHY LIKELY SECONDARY TO UTI, HYPONATREMIA TREATMENTS: ER: IVF X2, LEVAQUIN MAR: 06-23-18: ROCEPHIN (This form is maintained as a part of the permanent medical record) 2014 [employer] All Rights Reserved [employer]
--- NOTE | 2018-06-24 12:43 | PDOC.PN ---
- Subjective Encounter Start Date: 06/24/18 Encounter Start Time: 12:35 Subjective: f/u for UTI, encephalopathy, hyponatremia and dehydration. Overall -: doing ok per nursing. Continues to receive TF's and Rocephin. - Objective Resuscitation Status - Order Detail: 06/23/18 14:46 Resuscitation Status Routine Resuscitation Status: DNAR: NO Resuscitation Discussed with: confirmed with JENIFER Barksdale Sung her translating Additional comments: refusing resus efforts, comfort and supportive care only MAR Reviewed: Yes Vital Signs & Weight: Vital Signs (12 hours) Temp Pulse Resp BP BP Pulse Ox 06/24/18 11:36 97.8 F 61 16 107/75 96 06/24/18 08:00 97 06/24/18 07:59 56 L 99/55 L 06/24/18 07:05 98.4 F 56 L 16 99/55 L 97 06/24/18 04:00 98.7 F 84 16 138/82 96 06/24/18 00:45 97.3 F L 77 16 124/73 96 Weight Weight 165 lb 5.547 oz I&O: 06/23/18 06/24/18 06/25/18 06:59 06:59 06:59 Intake Total 1130 310 Balance 1130 310 Result Diagrams: 06/24/18 01:59 06/24/18 01:59 Additional Labs: Microbiology 06/22/18 22:03 Venous blood - Right Hand Blood Culture - Preliminary Specimen has been received and culture in progress. No Growth to date. 06/22/18 22:03 Venous blood - Left Arm Blood Culture - Preliminary Specimen has been received and culture in progress. No Growth to date. 06/22/18 22:03 Venous blood - Left Arm Blood Culture - Preliminary Coagulase Neg Staphylococcus Laboratory Tests 06/22/18 06/22/18 06/22/18 21:50 21:50 21:50 Sodium 123 L Lactic Acid 1.6 Magnesium TSH 3rd Generation 5.3010 H Cortisol 06/23/18 06/23/18 06/23/18 03:32 08:01 13:55 Sodium 128 L 131 L Lactic Acid Magnesium TSH 3rd Generation Cortisol 7.00 06/23/18 06/24/18 19:56 01:59 Sodium 127 L Lactic Acid Magnesium 2.0 TSH 3rd Generation Cortisol Phys Exam - Physical Examination restless, does ot track to name HEENT: PERRLA, sclera anicteric, oral pharynx no lesions Neck: no nodes, no JVD, supple, full ROM Respiratory: no wheezing, no rales, no rhonchi, clear to auscultation bilateral Cardiovascular: RRR, no significant murmur, no rub, gallop +PEG Gastrointestinal: soft, no distention, positive bowel sounds Musculoskeletal: no edema, pulses present Neurological: moves all 4 limbs aphasic(chronic) Skin: normal turgor, cap refill <2 seconds Dx/Plan (1) UTI (urinary tract infection) Status: Acute Comment: Suspected, Ucx pending, continue Rocephin IV daily (2) Hyponatremia Code(s): E87.1 - HYPO-OSMOLALITY AND HYPONATREMIA Status: Acute Comment: Likely due to dehydration effect, improving with IVF's, serial Na+ monitoring, ? component of HCTZ/Celexa (3) Metabolic encephalopathy Code(s): G93.41 - METABOLIC ENCEPHALOPATHY Status: Acute Comment: Acute metabolic encephalopathy due to UTI and exacerbated by underlying dementia (4) Dementia Code(s): F03.90 - UNSPECIFIED DEMENTIA WITHOUT BEHAVIORAL DISTURBANCE Status: Chronic Qualifiers: Dementia type: unspecified type Dementia behavioral disturbance: with behavioral disturbance Qualified Code(s): F03.91 - Unspecified dementia with behavioral disturbance Comment: Continue re-orientation with family members (5) Hypertension Code(s): I10 - ESSENTIAL (PRIMARY) HYPERTENSION Status: Chronic Qualifiers: Hypertension type: essential hypertension Qualified Code(s): I10 - Essential (primary) hypertension Comment: Stable, continue home BP regimen (6) Hypothyroidism Code(s): E03.9 - HYPOTHYROIDISM, UNSPECIFIED Status: Chronic Qualifiers: Comment: Continue Levothyroxine 50mcg daily - Plan continue antibiotics, PT/OT, social service manager, speech therapy, out of bed/ ambulate, DVT proph w/SCDs Stable currently -: Continue Rocephin 2gm IV daily -: Increase H2O flush 60ml q4h -: Nutritional support with TF's -: OOB/PT * AM lab: BMP
[2018-06-24] MEDS: Atorvastatin Calcium 20 MG TAB PER TUBE SCH (20:23)
[2018-06-25] MEDS: Levothyroxine Sodium 50 MCG TAB PO SCH (06:18)
[2018-06-25] MEDS: cefTRIAXone\\ROCEPHIN 2 GM in Sodium Chloride 0.9% 100 ML IVPB SCH (08:51)
[2018-06-25] MEDS: Finasteride 5 MG TAB PO SCH (08:51)
[2018-06-25] MEDS: Famotidine 20 MG TAB PER TUBE SCH ×2 (08:52→22:41)
[2018-06-25] MEDS: Enoxaparin Sodium 40 MG/0.4 ML SYRINGE SC SCH (08:52)
[2018-06-25] MEDS: Losartan 25 MG TAB PER TUBE SCH (08:52)
[2018-06-25] MEDS: Tamsulosin HCl 0.4 MG CAP PO SCH (08:53)
[2018-06-25] MEDS: Amlodipine 10 MG TAB PER TUBE SCH (08:53)
[2018-06-25] MEDS: Famotidine/PF 20 mg/2ml Vial SLOW IVP SCH ×2 (08:54→22:42)
[2018-06-25 09:16] LABS: Anion Gap 11 mmol/L (10-20); BUN (Urea Nitrogen) 17 mg/dL (8.4-25.7); Calc. Creatinine Clearance 85 mL/min (70-130); Calcium 8.6 mg/dL (7.8-10.44); Carbon Dioxide 22 mmol/L (23-31); Chloride 101 mmol/L (98-107); Estimated GFR-MDRD Greater than 90; Glucose 102 mg/dL (83-110); Sodium 130 mmol/L (136-145)
--- NOTE | 2018-06-25 16:02 | PDOC.PN ---
- Subjective Encounter Start Date: 06/25/18 Encounter Start Time: 13:30 Subjective: f/u for UTI, dehydration, encephalopathy. Overall doing better per family -: report. More alert and near baseline. - Objective Resuscitation Status - Order Detail: 06/23/18 14:46 Resuscitation Status Routine Resuscitation Status: DNAR: NO Resuscitation Discussed with: confirmed with Sung Billingsley her translating Additional comments: refusing resus efforts, comfort and supportive care only MAR Reviewed: Yes Vital Signs & Weight: Vital Signs (12 hours) Temp Pulse Resp BP BP Pulse Ox 06/25/18 08:53 67 144/71 H 06/25/18 08:00 98.0 F 67 20 144/71 H 97 Weight Admit Weight 165 lb 5.547 oz Weight 165 lb 5.547 oz I&O: 06/24/18 06/25/18 06/26/18 06:59 06:59 06:59 Intake Total 2112 4653 600 Output Total 2 Balance 2112 4651 600 Result Diagrams: 06/24/18 01:59 06/25/18 08:12 Additional Labs: Microbiology 06/22/18 22:03 Venous blood - Right Hand Blood Culture - Preliminary Specimen has been received and culture in progress. No Growth to date. 06/22/18 22:03 Venous blood - Left Arm Blood Culture - Preliminary Specimen has been received and culture in progress. No Growth to date. 06/22/18 22:03 Venous blood - Left Arm Blood Culture - Preliminary Coagulase Neg Staphylococcus Laboratory Tests 06/22/18 06/22/18 06/22/18 21:50 21:50 21:50 Sodium 123 L Lactic Acid 1.6 Magnesium TSH 3rd Generation 5.3010 H Cortisol 06/23/18 06/23/18 06/23/18 03:32 08:01 13:55 Sodium 128 L 131 L Lactic Acid Magnesium TSH 3rd Generation Cortisol 7.00 06/23/18 06/24/18 19:56 01:59 Sodium 127 L Lactic Acid Magnesium 2.0 TSH 3rd Generation Cortisol Phys Exam - Physical Examination sleeping but arouses to name or direct stimulation HEENT: PERRLA, sclera anicteric, oral pharynx no lesions Neck: no nodes, no JVD, supple, full ROM Respiratory: no wheezing, no rales, no rhonchi, clear to auscultation bilateral S1, S2 Cardiovascular: RRR, no significant murmur, no rub, gallop + PEG Gastrointestinal: soft, non-tender, no distention, positive bowel sounds Musculoskeletal: no edema, pulses present Neurological: moves all 4 limbs Skin: normal turgor, cap refill <2 seconds Dx/Plan (1) UTI (urinary tract infection) Status: Acute Comment: Suspected, Ucx unavailable, continue Rocephin IV another 24h then convert to per tube version (2) Hyponatremia Code(s): E87.1 - HYPO-OSMOLALITY AND HYPONATREMIA Status: Acute Comment: Likely due to dehydration effect, improving with IVF's, serial Na+ monitoring, ? component of HCTZ/Celexa (3) Metabolic encephalopathy Code(s): G93.41 - METABOLIC ENCEPHALOPATHY Status: Acute Comment: Acute metabolic encephalopathy due to UTI and exacerbated by underlying dementia (4) Dementia Code(s): F03.90 - UNSPECIFIED DEMENTIA WITHOUT BEHAVIORAL DISTURBANCE Status: Chronic Qualifiers: Dementia type: unspecified type Dementia behavioral disturbance: with behavioral disturbance Qualified Code(s): F03.91 - Unspecified dementia with behavioral disturbance Comment: Continue re-orientation with family members (5) Hypertension Code(s): I10 - ESSENTIAL (PRIMARY) HYPERTENSION Status: Chronic Qualifiers: Hypertension type: essential hypertension Qualified Code(s): I10 - Essential (primary) hypertension Comment: Stable, continue home BP regimen (6) Hypothyroidism Code(s): E03.9 - HYPOTHYROIDISM, UNSPECIFIED Status: Chronic Qualifiers: Comment: Continue Levothyroxine 50mcg daily - Plan plan discussed w/ family, continue antibiotics, PT/OT, social worker aide, out of bed/ambulate, DVT proph w/SCDs Stable overall -: Continue Rocephin another 24h -: Continue increased free-H2O supplementation -: TF's with Jevity 1.2 up to 6 cans daily -: Likely home in am 06/26/18 * .
[2018-06-25] MEDS: Atorvastatin Calcium 20 MG TAB PER TUBE SCH (22:42)
[2018-06-26 08:02] VITALS: BP 154/79; TEMP 98.8
[2018-06-26] MEDS: Levothyroxine Sodium 50 MCG TAB PO SCH (09:00)
[2018-06-26] MEDS: Losartan 25 MG TAB PER TUBE SCH (14:02)
[2018-06-26] MEDS: Famotidine 20 MG TAB PER TUBE SCH ×2 (14:03→14:05)
[2018-06-26] MEDS: cefTRIAXone\\ROCEPHIN 2 GM in Sodium Chloride 0.9% 100 ML IVPB SCH (14:03)
[2018-06-26] MEDS: Amlodipine 10 MG TAB PER TUBE SCH (14:03)
[2018-06-26] MEDS: Finasteride 5 MG TAB PO SCH (14:03)
[2018-06-26] MEDS: Tamsulosin HCl 0.4 MG CAP PO SCH (14:03)
[2018-06-26] MEDS: Enoxaparin Sodium 40 MG/0.4 ML SYRINGE SC SCH (14:05)
[2018-06-26] MEDS: Famotidine/PF 20 mg/2ml Vial SLOW IVP SCH (14:07)
--- NOTE | 2018-06-26 14:24 | DIS ---
DATE OF ADMISSION: 06/22/2018 DATE OF DISCHARGE: 06/26/2018 DISCHARGE DIAGNOSES: 1. Urinary tract infection, organism not identified. 2. Hyponatremia, chronic, likely secondary to hydrochlorothiazide. 3. Acute metabolic encephalopathy, multifactorial, improved. 4. Advanced Alzheimer dementia. 5. Hypertension, stable. 6. Hypothyroidism, stable. CONSULTATIONS: None. PERTINENT LABORATORY AND X-RAY FINDINGS: Sodium ranged between 123 to 130, potassium ranged between 3.3 to 4.0, and magnesium 2.0. TSH 5.30. Serum cortisol level 7.0. Blood cultures x2, dated 06/22/2018, showed 1/2 positive for coagulase-negative Staphylococcus species, likely contaminant. Portable chest x-ray dated 06/22/2018, showed no acute cardiopulmonary process. HOSPITAL COURSE: The patient was admitted to the medical floor after initially presenting with altered mental status in the context of advanced dementia and urinary tract infection. The patient was placed on Rocephin and given IV fluids and monitored for clinical response. The patient was noted with acute metabolic encephalopathy, improving with correction of hyponatremia as well as dehydration. The patient was increased on free water intake with tube feeds to 60 mL pre and post each can of formula and stabilized during the hospital course. The patient was discontinued on hydrochlorothiazide as this was likely a contributing factor to persistent hyponatremia. Overall, the patient did clinically stabilize with general supportive management and IV antibiotics for urinary tract infection. The patient transitioned to Omnicef 250 mg b.i.d. to complete a 5-day outpatient course on discharge. I have examined the patient at the time of discharge and discussed followup instructions. The patient overall clinically stable, ready for discharge on 06/26/2018. DISCHARGE MEDICATIONS: 1. Amlodipine 10 mg 1 tablet p.o. daily. 2. Enteric-coated aspirin 81 mg p.o. daily. 3. Celexa 20 mg p.o. daily. 4. Finasteride 5 mg p.o. daily. 5. Temazepam 15 mg p.o. at bedtime p.r.n. 6. Lipitor 20 mg per PEG tube at bedtime. 7. Omnicef 250 mg per PEG tube b.i.d. x5 days. 8. Levothyroxine 50 mcg p.o. daily. 9. Cozaar 100 mg per PEG tube daily. 10. Flomax 0.4 mg per PEG tube daily. FOLLOWUP: The patient may follow up with his primary care provider at [facility] on 07/02/2018 at 3 p.m. CONDITION ON DISCHARGE: Fair. ACTIVITY: Ad-johnnie. Rolling walker with standby/contact guard assistance. DIET: Tube feeds with 6 cans daily with water flushes of 60 mL pre and post each can. CODE STATUS: Do not resuscitate. DISPOSITION: Home on 06/26/2018. TIME SPENT: Total time preparing and coordinating discharge, 33 minutes. Job ID: [id number]
== END 2018-06-26 14:49 | disposition home or self-care (01) | DRG 689 ==
LOC: ERS 21:23 → ERHOLD 23:21 → T4-A 06-23 10:59
PROVIDERS: ADMIT Internal Medicine; ATTEND Internal Medicine
PROC: 3E0G76Z Introduction of Nutritional Substance into Upper GI, Via Natural or Artificial Opening (ICD-10-PCS; principal; 2018-06-23)
DX: N39.0 Urinary tract infection, site not specified (principal); G93.41 Metabolic encephalopathy; E87.1 Hypo-osmolality and hyponatremia; T50.2X5A Adverse effect of carbonic-anhydrase inhibitors, benzothiadiazides and other diuretics, initial encounter; G30.9 Alzheimer's disease, unspecified; F02.80 Dementia in other diseases classified elsewhere, unspecified severity, without behavioral disturbance, psychotic disturbance, mood disturbance, and anxiety; I10 Essential (primary) hypertension; E03.9 Hypothyroidism, unspecified; Z66 Do not resuscitate; Z93.1 Gastrostomy status; I69.391 Dysphagia following cerebral infarction; I69.328 Other speech and language deficits following cerebral infarction; R13.10 Dysphagia, unspecified
CPT/HCPCS: 36415; 51701; 71045; 80048; 80053; 81003; 81015; 82533; 82550; 83605; 83690; 83735; 83930; 83935; 84300; 84443; 84484; 85007; 85025; 85027; 87040; 87149; 93005; 96361; 96365; 96366; G8978-GP-CM; G8979-GP-CL; J0696; J1650; J1956; J7050; S0028

== ENCOUNTER 2018-08-05 14:46 | Inpatient (IN) | payer OTHER ==
--- NOTE | 2018-08-05 16:38 | RAD ---
CHEST 1 VIEW: Date: 08/05/18 HISTORY: Cough. COMPARISON: 06/22/18. FINDINGS: Cardiac silhouette is magnified and upper limits of normal. Pulmonary vasculature also upper limits o f normal and accentuated by shallow inspiration. Mediastinum is midline with aortic calcification. No lobar consolidation or evidence of pneumothorax. conveyor monitor leads overlie the chest. IMPRESSION: 1. Borderline cardiomegaly and pulmonary vascular congestion. No florid edema. 2. Atherosclerosis. POS: [facility]
--- NOTE | 2018-08-05 16:41 | CT ---
CT HEAD NONCONTRAST: Date: 08/05/18 HISTORY: Altered mental status. COMPARISON: 09/05/17. FINDINGS: Postoperative changes of the left calvarium and frontal lobe. Large area of encephalomalacia in the l eft frontal and temporal lobes has developed in the distribution of the large left MCA infarct seen o n last year's exams. No acute intracranial hemorrhage is apparent. Along the right frontal convexity, a small subdural fluid collection is slightly hyperdense to CSF. T here is no mass effect upon the underlying cerebral cortex. Motion artifact limits detail somewhat. IMPRESSION: 1. Interval evolution of the large left MCA infarct. 2. A very small right frontal subdural subacute to chronic fluid collection/hematoma has developed s pipe the previous year's exam. No acute hemorrhage is evident. Findings called to Dr. Tubbs in the emergency department at 1616 hours. CODE CR. POS: [facility]
[2018-08-05 16:42] LABS: #Lymphocytes 0.9 thou/uL (1.20-3.40); #Monocytes 0.4 thou/uL (0.11-0.59); #Neutrophils 3.3 thou/uL (1.40-6.50); %Basophils 0.4 % (0.0-1.0); %Eosinophils 0.4 % (0.0-10.0); %Lymphocytes 18.8 % (21.0-51.0); %Neutrophils 72.4 % (42.0-75.0); Hemoglobin 12.7 g/dL (14.0-18.0); Mean Corpuscular HGB CONC 33.1 g/dL (32.0-36.0); Mean Corpuscular Hemoglobin 34.3 pg (27.0-31.0); Mean Platelet Volume 5.8 fL (7.4-10.4); Platelet Count 326 thou/uL (130-400); RBC Distribution Width 12.2 % (11.5-14.5); Red Blood Cell (RBC) Count 3.71 mill/uL (4.70-6.10); White Blood Cell (WBC) Count 4.6 thou/uL (4.8-10.8)
[2018-08-05 17:06] LABS: ALT (SGPT) 107 U/L (8-55); AST (SGOT) 119 U/L (5-34); Albumin 3.2 g/dL (3.4-4.8); Alkaline Phosphatase 152 U/L (40-150); Anion Gap 11 mmol/L (10-20); BUN (Urea Nitrogen) 20 mg/dL (8.4-25.7); Bilirubin, Total 0.6 mg/dL (0.2-1.2); Calc. Creatinine Clearance 0 mL/min (70-130); Calcium 9.1 mg/dL (7.8-10.44); Carbon Dioxide 26 mmol/L (23-31); Chloride 103 mmol/L (98-107); Estimated GFR-MDRD 86; Globulin 3.9 g/dL (2.4-3.5); Glucose 92 mg/dL (83-110); Potassium 4.1 mmol/L (3.5-5.1); Protein, Total 7.1 g/dL (5.8-8.1); Sodium 136 mmol/L (136-145)
[2018-08-05 17:38] LABS: Bilirubin Negative (Negative); Blood, Urine Trace (Negative); Clarity CLOUDY (Clear); Glucose, Urine (Dipstick) Negative (Negative); Leukocyte Small (Negative); Nitrite Negative (Negative); Protein, Urine (Dipstick) Negative (Neg-Trace); Specific Gravity, Urine 1.017 (1.002-1.036); pH, Urine 7.5 (5.0-9.0)
[2018-08-05 17:40] LABS: Bacteria/HPF None Seen HPF (None Seen); Hyaline Casts/LPF 0-3 HYALINE CAST LPF (0-3 Hyaline); Pathc Cast-AUWi Flag 0.43 (0-2.49); Squamous Epithelial 0-3 HPF (0-3); WBC/HPF 0-3 HPF (0-3)
[2018-08-05 17:49] LABS: CKMB 11.5 ng/mL (0-6.6)
[2018-08-05] MEDS ORDERED: Aspirin Chewable 81 MG TAB ONE (18:21)
[2018-08-05] MEDS ORDERED: Nitroglycerin 2% Ointment 1 INCH/1 GM Packet ONE (18:21)
[2018-08-05] MEDS ORDERED: Enoxaparin Sodium 80 MG/0.8 ML SYRINGE ONE (19:20)
--- NOTE | 2018-08-05 19:42 | ULT ---
GALLBLADDER ULTRASOUND: 08/05/18 HISTORY: Abdominal pain. COMPARISON: None. TECHNIQUE: Utilizing a multihertz transducer, sonographic imaging of the right upper quadrant is performed in th e longitudinal and transverse plane. FINDINGS: Pancreas is obscured by bowel gas. Hepatic parenchyma has a normal echotexture. No hepatic masses or intrahepatic biliary dilatation. Co ntour of the hepatic margin is maintained. Right hepatic lobe measures 14.6 cm. Main portal vein is patent. Appropriate directional flow. Common bile duct diameter is 0.3 cm. Right kidney has a normal cortical echotexture. No hydronephrosis. Right kidney measures 4.6 x 4.6 x 8.2 cm. There is some echogenic material in the lumen of the gallbladder which may represent small nonshadowi ng stones versus sludge. There is no pericholecystic fluid. However, gallbladder wall is thickened me asuring 0.46 cm. Negative Preston's sign. IMPRESSION: Possible sludge and small stones in the lumen of the gallbladder. Findings are equivocal for cholecys titis. The gallbladder wall is thickened. However, there is no pericholecystic fluid and there is a n egative Preston's sign. If there is concern, consider HIDA scan. POS: [facility]
[2018-08-05 20:28] LABS: CKMB 11.6 ng/mL (0-6.6)
--- NOTE | 2018-08-05 20:34 | HP ---
PRIMARY CARE PHYSICIAN: [facility] in [place]. CHIEF COMPLAINT: Altered mental status and appears in pain. 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 He stays in bed most of the time, not really able to ambulate, but normally has some personal interactions with the family. About eight days ago, the patient started to moan at night. He was agitated, always needed someone there next to him. Otherwise, he will start hitting on things. Also has had some intermittent diarrheal stools occasionally with a little bit of blood in them and some low- grade fever, so the family brought him into the emergency room today. In the ER, he was noted to have an elevated troponin and some elevated liver function tests. CT scan did show very mild subacute or chronic subdural hematoma that neurosurgery said did not have to have anything done with. He had an ultrasound done and the report is pending. PAST MEDICAL HISTORY: All medical history is taken from the family and the chart due to the patient's noncommunicating status. 1. Previous CVA with right hemiplegia. 2. Dementia. 3. Hypertension. 4. Hypothyroidism. 5. Dyslipidemia. PAST SURGICAL HISTORY: Right eye surgery. SOCIAL HISTORY: No history of tobacco, alcohol, or illicit drug use. Lives with his family who takes care of him. He is a DNR. FAMILY HISTORY: Brother had a history of myocardial infarction and another brother had a history of cerebrovascular accident. ALLERGIES: NO KNOWN DRUG ALLERGIES. CURRENT MEDICATIONS: 1. Tamsulosin 0.4 mg daily. 2. Finasteride 5 mg daily. 3. Aspirin 81 mg daily. 4. Atorvastatin 20 mg daily. 5. Levothyroxine 50 mcg daily. 6. Temazepam 15 mg daily. 7. Amlodipine 10 mg daily. 8. Trazodone 100 mg daily. REVIEW OF SYSTEMS: Unable to do a complete review of systems due to the patient 's mental status, inability to communicate. All pertinent positives are from topic in the history or in the HPI. PHYSICAL EXAMINATION: VITAL SIGNS: Blood pressure 125/63, pulse 73, respirations 16, temperature 98.1 , O2 saturation 97% on room air. GENERAL: This is an elderly male, in no acute distress. 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 Left eye is round and reactive to light with visible cataract. Oropharynx is clear without lesions, erythema, or exudate. He does have very poor dentition. Mucous membranes are moist. NECK: Without masses or JVD. CARDIOVASCULAR: Irregularly, irregular rhythm. No murmurs, rubs, or gallops. LUNGS: Clear to auscultation bilaterally. No wheezes, crackles, or rhonchi. ABDOMEN: Soft. PEG tube is in place. It appears like he does not like to have his belly pressed on, however, when you press on the right upper quadrant, he does make some moaning sounds and has a little bit of guarding there. No masses are palpable. Normoactive bowel sounds. EXTREMITIES: No clubbing, cyanosis, or edema. He does move his right side a little less than his left, though he does move his right leg spontaneously, right arm less so. He cannot follow my commands though for testing his strength. SKIN: No rashes or other lesions noted. LABORATORY DATA: CBC with a white blood cell count of 4.6, hemoglobin 12.7, hematocrit 38.4, platelet count normal. Complete metabolic panel is normal except for AST of 119, ALT of 107, alkaline phosphatase of 152, and albumin of 3.2. Bilirubin was normal. CK-MB was elevated at 11.5, troponin 0.8, brain natriuretic peptide was 252, was actually less from earlier last year. Urinalysis showed trace blood, 7-10 red blood cells, no white blood cells, no bacteria. CT of the brain shows involuting stroke and very small subdural fluid collection. I did review the chest x-ray film as well as the radiologist's report. It does show some cardiomegaly and some increased pulmonary vascular congestion. No obvious infiltrates. Abdominal ultrasound report is pending. EKG, I did review the EKG from the emergency room, it shows atrial fibrillation without any ST-segment elevation or depression, rate is controlled ASSESSMENT: 1. Non ST-elevation myocardial infarction. This is likely the source of the patient's discomfort and change in his sleeping patterns over the last week, and is possible the troponins are actually trending down. His EKG does not show any evidence of STEMI and his vital signs are normal currently. He is already on aspirin and statin. I am reluctant to put him on any stronger blood thinners at this point due to his small subdural hematoma, but I will continue the baby aspirin for now. We will consult Cardiology. We will get a repeat echocardiogram to compare with the one from last year when he had a stroke. 2. Liver function test abnormality and right upper quadrant pain. Ultrasound pending. Concern for either possible congestion of the liver from a recent heart attack versus gallstones versus some other pathology. 3. Previous stroke with severe debilitation. Family states the patient is a do not attempt resuscitation. They would like him to be able to live a while longer, as they are currently working on getting his papers replaced so that he can travel back to [place] because he has a lot of his family there and he would prefer to pass away down there and he is planning on being buried down there. 4. Dysphagia. We will continue patient's tube feeds and keep him n.p.o. by mouth. 5. Hyperlipidemia, resume statin. 6. Benign prostatic hyperplasia. We will resume patient's prostate medications. 7. Gastrointestinal prophylaxis. We will put the patient on Pepcid twice a day. 8. Deep venous thrombosis prophylaxis. We will put the patient on SCDs while in bed. We will hold off on any Lovenox due to his subdural hematoma. 9. Code status is discussed with the family. The patient is a do not attempt resuscitation. We will go ahead and have palliative care see the patient again in the hospital as they have seen him during his previous visits. His medical decision maker are his daughters. His daughters are Apolonia Starks and Cierra Ramsay. Job ID: [id number] [facility]
[2018-08-05] MEDS ORDERED: Ondansetron ODT 4 MG TAB PER TUBE PRN (20:41)
[2018-08-05] MEDS ORDERED: Ondansetron PF 4 MG/2 ML Vial IVP PRN (20:41)
[2018-08-05] MEDS ORDERED: Acetaminophen 325 MG TAB PER TUBE PRN (20:41)
[2018-08-05] MEDS ORDERED: Acetaminophen 650 MG Suppository PR PRN (20:41)
[2018-08-05] MEDS ORDERED: Senokot S 8.6-50 MG TAB PER TUBE PRN (20:41)
[2018-08-05] MEDS: Atorvastatin Calcium 20 MG TAB PER TUBE SCH (22:07)
[2018-08-05] MEDS: Famotidine 20 MG TAB PER TUBE SCH (22:08)
[2018-08-05] MEDS: Temazepam 15 MG CAP PO PRN (22:21)
[2018-08-05] MEDS ORDERED: Lorazepam 2 MG/ML VIAL SLOW IVP SCH (22:30)
[2018-08-05 23:22] LABS: CKMB 11.7 ng/mL (0-6.6)
[2018-08-06 05:28] LABS: #Basophils 0.1 thou/uL (0.0-0.2); #Monocytes 0.5 thou/uL (0.11-0.59); #Neutrophils 4.3 thou/uL (1.40-6.50); %Basophils 1.1 % (0.0-1.0); %Eosinophils 0.8 % (0.0-10.0); %Monocytes 7.7 % (0.0-10.0); %Neutrophils 73.5 % (42.0-75.0); Hemoglobin 12.4 g/dL (14.0-18.0); Mean Corpuscular HGB CONC 33.3 g/dL (32.0-36.0); Mean Corpuscular Hemoglobin 34.4 pg (27.0-31.0); Mean Platelet Volume 5.9 fL (7.4-10.4); Platelet Count 332 thou/uL (130-400); RBC Distribution Width 12.1 % (11.5-14.5); White Blood Cell (WBC) Count 5.8 thou/uL (4.8-10.8)
[2018-08-06] MEDS: Levothyroxine Sodium 50 MCG TAB PO SCH (05:29)
[2018-08-06 05:51] LABS: Anion Gap 13 mmol/L (10-20); BUN (Urea Nitrogen) 17 mg/dL (8.4-25.7); Calc. Creatinine Clearance 69 mL/min (70-130); Carbon Dioxide 23 mmol/L (23-31); Chloride 105 mmol/L (98-107); Estimated GFR-MDRD Greater than 90; Glucose 80 mg/dL (83-110); Sodium 137 mmol/L (136-145)
--- NOTE | 2018-08-06 09:00 | PDOC.PN ---
- Subjective Encounter Start Date: 08/06/18 Encounter Start Time: 10:20 Subjective: Patient feeling much better. Ready to go home. Will have a 24 hour -: pet adoption counselor. Has been having regular falls at home for the past 2 months. - Objective Resuscitation Status - Order Detail: 08/05/18 19:01 Resuscitation Status Routine Resuscitation Status: DNAR: NO Resuscitation Discussed with: Family MAR Reviewed: Yes Vital Signs & Weight: Vital Signs (12 hours) Temp Pulse Resp BP Pulse Ox 08/06/18 08:00 97.2 F L 84 16 195/84 H 97 08/06/18 03:55 97.5 F L 84 20 129/71 96 08/06/18 00:42 96 08/06/18 00:15 72 22 H 141/75 H 96 Weight Weight 146 lb 14.4 oz I&O: 08/05/18 08/06/18 08/07/18 06:59 06:59 06:59 Intake Total 350 Balance 350 Result Diagrams: 08/06/18 05:08 08/06/18 05:08 Phys Exam - Physical Examination Constitutional: NAD HEENT: moist MMs Respiratory: no wheezing, no rales, no rhonchi Cardiovascular: no significant murmur, irregular Gastrointestinal: soft, positive bowel sounds Musculoskeletal: no edema Neurological: non-focal, moves all 4 limbs Psychiatric: normal affect Dx/Plan (1) NSTEMI (non-ST elevated myocardial infarction) Code(s): I21.4 - NON-ST ELEVATION (NSTEMI) MYOCARDIAL INFARCTION Status: Acute Comment: Cardiology consulted, on ASA and Atorvastatin (2) History of hemorrhagic cerebrovascular accident (CVA) with residual deficit Code(s): I69.30 - UNSPECIFIED SEQUELAE OF CEREBRAL INFARCTION Status: Chronic (3) Elevated liver enzymes Code(s): R74.8 - ABNORMAL LEVELS OF OTHER SERUM ENZYMES Status: Acute Comment: some RUQ TTP and equivocal ultrasound, not really a candidate for surgery at this time (4) A-fib Code(s): I48.91 - UNSPECIFIED ATRIAL FIBRILLATION Status: Chronic Qualifiers: Atrial fibrillation type: paroxysmal Qualified Code(s): I48.0 - Paroxysmal atrial fibrillation Comment: rate controlled, has been on Eliquis (5) Dementia Code(s): F03.90 - UNSPECIFIED DEMENTIA WITHOUT BEHAVIORAL DISTURBANCE Status: Chronic Qualifiers: Dementia type: unspecified type Dementia behavioral disturbance: with behavioral disturbance Qualified Code(s): F03.91 - Unspecified dementia with behavioral disturbance Comment: Continue re-orientation with family members (6) Dysphagia as late effect of cerebrovascular accident (CVA) Code(s): I69.391 - DYSPHAGIA FOLLOWING CEREBRAL INFARCTION Status: Chronic Comment: PEG tube feeds, NPO (7) Hypertension Code(s): I10 - ESSENTIAL (PRIMARY) HYPERTENSION Status: Chronic Qualifiers: Hypertension type: essential hypertension Qualified Code(s): I10 - Essential (primary) hypertension Comment: Stable, continue home BP regimen - Plan cont current plan of care, social services designee I had an extensive discussion with both daughters about the patient's recent frequent falls. I reviewed the significant risk of stroke and resulting debilitation or vs. the significant risk of intracranial hemorrhage from a fall on Eliquis with resulting debilitation or with both daughters. After extensive discussion both daughters agreed to plan of daily aspirin for stroke prevention. This can be reassessed in the future should she stop falling completely with the caregiver present. Will discharge home with home health for care home and PT. Family is arranging 24 hour caregiver. - Discharge Day Encounter end time: 10:50 Pulmonology Consult: Meds - Medications MAR Reviewed: Yes Medications: Current Medications Acetaminophen (Tylenol) 650 mg PER TUBE Q4H PRN PRN Reason: Headache/Fever/Mild Pain (1-3) Acetaminophen (Tylenol) 650 mg NE Q4H PRN PRN Reason: Headache/Fever/Mild Pain (1-3) Amlodipine Besylate (Norvasc) 10 mg PO DAILY [facility] Aspirin (Ecotrin) 81 mg PO DAILY [facility] Atorvastatin Calcium (Lipitor) 20 mg PER TUBE HS [facility] Last Admin: 08/05/18 22:07 Dose: 20 mg Famotidine (Pepcid) 20 mg PER TUBE BID [facility] Last Admin: 08/05/18 22:08 Dose: 20 mg Finasteride (Proscar) 5 mg PO DAILY [facility] Levothyroxine Sodium (Synthroid) 50 mcg PO 0600 [facility] Last Admin: 08/06/18 05:29 Dose: 50 mcg Nitroglycerin (Nitro-Bid 2% Ointment) 1 inch TOP BID [facility] Ondansetron HCl (Zofran Odt) 4 mg PER TUBE Q6H PRN PRN Reason: Nausea/Vomiting Ondansetron HCl (Zofran) 4 mg IVP Q6H PRN PRN Reason: Nausea/Vomiting Senna/Docusate Sodium (Senokot S) 2 tab PER TUBE BID PRN PRN Reason: Constipation Sodium Chloride (Flush - Normal Saline) 10 ml IVF Q12HR JAVIER Sodium Chloride (Flush - Normal Saline) 10 ml IVF PRN PRN PRN Reason: Saline Flush Tamsulosin HCl (Flomax) 0.4 mg PO DAILY JAVIER Temazepam (Restoril) 15 mg PO HS PRN PRN Reason: Agitation Last Admin: 08/05/18 22:21 Dose: 15 mg - Allergies Allergies/Adverse Reactions: Allergies Allergy/AdvReac Type Severity Reaction Status Date / Time No Known Allergies Allergy Verified 09/04/17 15:32
[2018-08-06] MEDS: Aspirin 81 mg Enteric Coated Tablet PO SCH (09:11)
[2018-08-06] MEDS: Finasteride 5 MG TAB PO SCH (09:11)
[2018-08-06] MEDS: Nitroglycerin 2% Ointment 1 INCH/1 GM Packet TOP SCH ×2 (09:11→21:15)
[2018-08-06] MEDS: Famotidine 20 MG TAB PER TUBE SCH ×2 (09:12→21:13)
[2018-08-06] MEDS: Tamsulosin HCl 0.4 MG CAP PO SCH (09:12)
[2018-08-06] MEDS: Amlodipine 10 MG TAB PO SCH (09:12)
--- NOTE | 2018-08-06 11:51 | CON ---
DATE OF CONSULTATION: HISTORY OF PRESENT ILLNESS: The patient is an unfortunate 83-year-old gentleman who presented to the hospital with increased moaning and was admitted because of an elevated troponin level. This unfortunate gentleman has had several large cerebrovascular accidents. He was recently in the hospital in July with another cerebrovascular accident. He also was found to have a subdural hematoma. The patient was placed on medical therapy. He has had history of severe dementia and has had a PEG tube placed. The patient was brought to the emergency room when he appeared to be more in discomfort. The patient is unable to give any type of coherent history. PAST MEDICAL HISTORY: 1. CVA. 2. Dementia. 3. Hypertension. PAST SURGICAL HISTORY: Eye surgery. SOCIAL HISTORY: Nonsmoker. FAMILY HISTORY: Not obtainable. ALLERGIES: NO KNOWN DRUG ALLERGIES. MEDICATIONS: See nursing list. REVIEW OF SYSTEMS: Not obtainable. PHYSICAL EXAMINATION: GENERAL: An ill-appearing gentleman who is moaning. NECK: Showed no jugular venous distention. LUNGS: Clear to auscultation. HEART: Irregular rate and rhythm. Normal S1, S2. ABDOMEN: PEG tube. EXTREMITIES: Showed mild edema. NEUROLOGIC: He has right-sided weakness. LABORATORY RESULTS: White blood cell count 5.8, hemoglobin 12.4, hematocrit 37.2, and platelets 332. Sodium was 137, potassium 4.0, chloride 105, bicarbonate 13 , BUN 17, creatinine is 0.77. Troponin was 1.375. His EKG revealed atrial fibrillation with left anterior fascicular block. IMPRESSION: 1. Non-Q-wave myocardial infarction. 2. History of cerebrovascular accident. 3. Chronic subdural hematoma. 4. Chronic atrial fibrillation. 5. Dyslipidemia. PLAN: This unfortunate gentleman with severe dementia and a PEG tube has suffered myocardial infarction. His overall prognosis is extremely guarded. He is a poor patient with his history of subdural hematoma and he is a poor patient for anticoagulation. We will continue the patient on aspirin. Prognosis is very guarded. We will follow this patient with you through his hospitalization. Job ID: [id number] [facility]
--- NOTE | 2018-08-06 12:03 | PDOC.PN ---
- Subjective Encounter Start Date: 08/06/18 Encounter Start Time: 10:20 -: non-verbal Subjective: No changes overnight. Patient in no apparent distress this morning. - Objective Resuscitation Status - Order Detail: 08/05/18 19:01 Resuscitation Status Routine Resuscitation Status: DNAR: NO Resuscitation Discussed with: Family MAR Reviewed: Yes Vital Signs & Weight: Vital Signs (12 hours) Temp Pulse Resp BP Pulse Ox 08/06/18 09:12 84 08/06/18 08:00 97.2 F L 84 16 195/84 H 97 08/06/18 03:55 97.5 F L 84 20 129/71 96 08/06/18 00:42 96 08/06/18 00:15 72 22 H 141/75 H 96 Weight Weight 146 lb 14.4 oz I&O: 08/05/18 08/06/18 08/07/18 06:59 06:59 06:59 Intake Total 350 Balance 350 Result Diagrams: 08/06/18 05:08 08/06/18 05:08 Phys Exam - Physical Examination Constitutional: NAD HEENT: moist MMs poor dentition Respiratory: no wheezing, no rales, no rhonchi Cardiovascular: RRR Gastrointestinal: soft, non-tender, positive bowel sounds PEG in place Moves right side less Deviation from normal: arousable, alert, can't vocalize or follow most directions even in [place] Dx/Plan (1) NSTEMI (non-ST elevated myocardial infarction) Code(s): I21.4 - NON-ST ELEVATION (NSTEMI) MYOCARDIAL INFARCTION Status: Acute Comment: Cardiology consulted, on ASA and Atorvastatin (2) History of hemorrhagic cerebrovascular accident (CVA) with residual deficit Code(s): I69.30 - UNSPECIFIED SEQUELAE OF CEREBRAL INFARCTION Status: Chronic (3) Elevated liver enzymes Code(s): R74.8 - ABNORMAL LEVELS OF OTHER SERUM ENZYMES Status: Acute Comment: some RUQ TTP and equivocal ultrasound, not really a candidate for surgery at this time, trend LFTs, less TTP this morning (4) A-fib Code(s): I48.91 - UNSPECIFIED ATRIAL FIBRILLATION Status: Chronic Qualifiers: Atrial fibrillation type: paroxysmal Qualified Code(s): I48.0 - Paroxysmal atrial fibrillation Comment: rate controlled, has been on Eliquis (5) Dementia Code(s): F03.90 - UNSPECIFIED DEMENTIA WITHOUT BEHAVIORAL DISTURBANCE Status: Chronic Qualifiers: Dementia type: unspecified type Dementia behavioral disturbance: with behavioral disturbance Qualified Code(s): F03.91 - Unspecified dementia with behavioral disturbance Comment: Continue re-orientation with family members (6) Dysphagia as late effect of cerebrovascular accident (CVA) Code(s): I69.391 - DYSPHAGIA FOLLOWING CEREBRAL INFARCTION Status: Chronic Comment: PEG tube feeds, NPO (7) Hypertension Code(s): I10 - ESSENTIAL (PRIMARY) HYPERTENSION Status: Chronic Qualifiers: Hypertension type: essential hypertension Qualified Code(s): I10 - Essential (primary) hypertension Comment: Stable, continue home BP regimen - Plan cont current plan of care, DVT proph w/SCDs * . - Discharge Day Encounter end time: 10:30
--- NOTE | 2018-08-06 12:52 | PQF ---
CLINICAL DOCUMENTATION IMPROVEMENT CLARIFICATION FORM: ICD-10 Updated PLEASE DO AN ADDENDUM TO THE PROGRESS NOTE WITH ANY DOCUMENTATION UPDATES OR ADDITIONS AND CARRY THROUGH TO DC SUMMARY. THANK YOU. DATE: 08/06/18 ATTN: DR. GREEN Please exercise your independent, professional judgment in responding to the clarification form. Clinical indicators are provided on the bottom of this form for your review Please check appropriate box(s): [ ] Functional Quadriplegia (specify underlying cause) [ ] Weakness (please specify anatomical area) Specify: [ ] Non dominant side [ ] Dominant side [ X ] Other diagnosis __Right hemiplegia due to stroke, generalized weakness, now bedbound [ ] Unable to determine In addition, please specify: Present on Admission (POA): [ X ] Yes [ ] No [ ] Unable to determine CLINICAL INDICATORS - SIGNS / SYMPTOMS / LABS PALLIATIVE CARE NOTE 08/06: "HE IS MOSTLY NONVERBAL BED BOUND WITH A PEG..." NURSING NOTE 08/06: "MAXIMUM ASSISTANCE" "SENSORY PERCEPTION COMPLETELY LIMITED" "BEDFAST" "TURN Q 2" RISKS: H/O CVA WITH RESIDUAL DEFICITS H/O DEMENTIA WITH BEHAVIORAL DISTURBANCE TREATMENT: INCREASED NURSING ASSISTANCE FEEDINGS/MEDS PER PEG TUBE (This form is maintained as a part of the permanent medical record) 2014 [employer], [facility]. All Rights Reserved [email or web address] [email or web address] Office: [phone] [facility] HOSPITALMercedes
[2018-08-06] MEDS: Temazepam 15 MG CAP PO PRN (21:14)
[2018-08-06] MEDS: Atorvastatin Calcium 20 MG TAB PER TUBE SCH (21:15)
[2018-08-07] MEDS: Levothyroxine Sodium 50 MCG TAB PO SCH (05:37)
[2018-08-07 05:54] LABS: #Lymphocytes 0.9 thou/uL (1.20-3.40); #Monocytes 0.4 thou/uL (0.11-0.59); #Neutrophils 5.1 thou/uL (1.40-6.50); %Basophils 0.4 % (0.0-1.0); %Eosinophils 0.2 % (0.0-10.0); %Lymphocytes 14.4 % (21.0-51.0); %Monocytes 6.5 % (0.0-10.0); %Neutrophils 78.5 % (42.0-75.0); Hemoglobin 12.6 g/dL (14.0-18.0); Mean Corpuscular HGB CONC 33.5 g/dL (32.0-36.0); Mean Corpuscular Hemoglobin 34.3 pg (27.0-31.0); Platelet Count 309 thou/uL (130-400); RBC Distribution Width 12.1 % (11.5-14.5); Red Blood Cell (RBC) Count 3.66 mill/uL (4.70-6.10); White Blood Cell (WBC) Count 6.5 thou/uL (4.8-10.8)
[2018-08-07 06:09] LABS: ALT (SGPT) 63 U/L (8-55); AST (SGOT) 45 U/L (5-34); Alkaline Phosphatase 138 U/L (40-150); Anion Gap 10 mmol/L (10-20); BUN (Urea Nitrogen) 15 mg/dL (8.4-25.7); Bilirubin, Total 0.7 mg/dL (0.2-1.2); Calc. Creatinine Clearance 70 mL/min (70-130); Carbon Dioxide 24 mmol/L (23-31); Chloride 106 mmol/L (98-107); Estimated GFR-MDRD Greater than 90; Globulin 3.7 g/dL (2.4-3.5); Glucose 83 mg/dL (83-110); Lipase 14 U/L (8-78); Potassium 4.1 mmol/L (3.5-5.1); Protein, Total 6.7 g/dL (5.8-8.1); Sodium 136 mmol/L (136-145)
[2018-08-07 07:26] LABS: Magnesium 1.9 mg/dL (1.6-2.6)
[2018-08-07] MEDS: Amlodipine 10 MG TAB PO SCH (09:00)
[2018-08-07] MEDS: Famotidine 20 MG TAB PER TUBE SCH ×2 (09:00→21:55)
[2018-08-07] MEDS: Tamsulosin HCl 0.4 MG CAP PO SCH (09:00)
[2018-08-07] MEDS: Finasteride 5 MG TAB PO SCH (09:00)
[2018-08-07] MEDS: Aspirin 81 mg Enteric Coated Tablet PO SCH (09:00)
--- NOTE | 2018-08-07 10:00 | RAD ---
ABDOMEN ONE VIEW: HISTORY: Evaluate PEG placement. Possible reposition by the patient. FINDINGS: Gas and stool throughout the colon and rectum. Nonspecific small bowel gas pattern. Gas is apparent throughout the stomach. A radiopaque tube overlies the stomach, directed toward the pylorus, with possibly a balloon at the distal end of the catheter. Retention disk overlies the left upper quadrant. IMPRESSION: 1. Nonspecific bowel gas pattern. 2. Percutaneous endoscopic gastrostomy tube is in good radiographic position. POS: DAVE
[2018-08-07 10:45] VITALS: BMI 24.7
[2018-08-07] MEDS ORDERED: Labetalol HCl 100 MG/20 ML VIAL SLOW IVP PRN (12:18)
[2018-08-07] MEDS ORDERED: GASTROGRAFIN 30 ML BOT ONE (16:32)
--- NOTE | 2018-08-07 16:54 | RAD ---
AP ABDOMEN RADIOGRAPHS: 08/07/2018 HISTORY: Patient pulled PEG tube out. PEG tube was replaced. COMPARISON: 08/07/2018 FINDINGS: Gastrostomy tube is noted in place. There is gaseous distention of the stomach. The exact location of the balloon on the gastrostomy tube is difficult to discern on this examination. However, the tip of the gastrostomy tube is within what appears to be the distal aspect of the third portion of the d uodenum, and there is contrast seen within the most proximal small bowel. The bowel gas pattern is o therwise nonspecific. Lucency overlies the lateral right upper quadrant, which may be artifactual. Vascular calcification is seen in the thoracic aorta. Degenerative changes are noted in the spine. No other interval change. IMPRESSION: An enteric tube overlies the left upper quadrant. The exact location of the balloon on the gastrosto my tube is difficult to confirm on this examination, and I am unsure if the gastrostomy balloon is wi thin the stomach. However, the tubing extends distal to this region and appears to extend into the s mall bowel, overlying the expected location of the third portion of the duodenum, with contrast seen in the duodenum and proximal jejunum. There is gaseous distention of the stomach. Inflation of the balloon within the gastrostomy tract could not be excluded based on this exam, and clinical correlati on is suggested. POS: DAVE
[2018-08-07] MEDS: Fleet Enema 133 ML BOT FS SCH (17:30)
--- NOTE | 2018-08-07 17:47 | PRG ---
DATE OF SERVICE: 08/07/2018 SUBJECTIVE: The patient was agitated last night. He pulled his IV access as well as partially pulled his PEG tube. Not much information is available from the patient due to baseline dementia. REVIEW OF SYSTEMS: Cannot be obtained from the patient due to same reason. OBJECTIVE: VITAL SIGNS: Temperature 97.7, pulse of 89, respirations are 18, blood pressure 145/79, and O2 saturation 93% on room air. GENERAL: An 83-year-old male with agitation. He is currently on 2-point restraint. LUNGS: Showed diminished air entry at bilateral bases with few rales. No significant wheezing or rhonchi. Symmetrical. HEART: S1 and S2 present. Regular rate and rhythm. 2/6 systolic murmur over the mitral area. ABDOMEN: Soft. Bowel sounds present. PEG tube noted. EXTREMITIES: No edema or calf tenderness. NEUROLOGIC: Examination unchanged. SKIN: Warm and dry. LYMPH NODES: No palpable lymph nodes in the neck. DIAGNOSTIC DATA: Telemetry monitoring by my review showed atrial fibrillation, rate controlled. LABORATORY FINDINGS: WBC 6.5, hemoglobin 12.6, hematocrit 37.5, and platelet 309. Chemistry showed sodium of 136, potassium 4.1, chloride 106, bicarb 24, BUN 15, and creatinine 0.76. Albumin 3.0. Troponin 1.375 with maximum CK-MB 11.7. BNP was 252. LFTs are improving. AST was 45. ALT was 63. Urinalysis was negative for wbc bacteria. IMAGING DATA: CT scan of the brain on admission showed no acute CVA. Chest x- ray on admission showed cardiomegaly. KUB this morning showed nonspecific bowel gas pattern with percutaneous endoscopic gastrostomy tube in good radiographic position. Echocardiogram showed left ventricular ejection fraction, 45% to 50% with moderately dilated left atrium, moderately enlarged right atrium, and ckag-lb-qulnealh tricuspid regurgitation. IMPRESSION: 1. Spd-JF-veombdmgx myocardial infarction. 2. Percutaneous endoscopic gastrostomy tube malfunction. The patient partially pulled his percutaneous endoscopic gastrostomy tube. 3. 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 4. Bedridden status. 5. Dysphagia. The patient is unable to tolerate any oral consistency. He is currently on percutaneous endoscopic gastrostomy tube feeding. 6. Hypertension. 7. Benign prostatic hypertrophy. 8. Abnormal LFTs of unclear etiology, probably secondary to passive hepatic congestion vs gall bladder etiology. 9. Dementia. 10. Moderate protein-calorie malnutrition. 11. DNR status. 12. Ngjz-yc-anicbvgb tricuspid regurgitation with ejection fraction of 40% to 45 %. 13. Chronic atrial fibrillation, not an anticoagulation candidate due to hemorrhagic cerebrovascular accident. PLAN: We will continue telemetry monitoring. Gastroenterology team was consulted. We will continue nitroglycerin patch with aspirin. Continue statins. We will continue Flomax with finasteride. We will recheck labs in a.m. We will resume tube feeding after evaluated by Gastroenterology service. Palliative care team was consulted. We will continue other medications. ?Antibiotics for abnormal gall bladder ultrasound. Plan was discussed with family at the bedside.They stated understanding. Job ID: [id number] [facility]
[2018-08-07] MEDS: Nitroglycerin 2% Ointment 1 INCH/1 GM Packet TOP SCH ×2 (17:57→21:53)
[2018-08-07] MEDS: Atorvastatin Calcium 20 MG TAB PER TUBE SCH (21:55)
--- NOTE | 2018-08-07 22:32 | CON ---
DATE OF CONSULTATION: 08/07/2018 REASON FOR CONSULT: PEG tube was inadvertently removed. HISTORY OF PRESENT ILLNESS: Mr. Maloney is an 83-year-old with dementia, he can give no history. Talking with the patient's nurse apparently, he came in yesterday evening for altered mental status and he appeared to be in pain. With some evaluation, it was felt that he maybe had a non-Q-wave NJ. Somewhere along the line last evening, he got hold of the PEG tube and pulled it partially out. A Sound Physician who was on-call was nearby and placed it back into the stomach and ordered a KUB and told him to hold it until he was evaluated by GI today. The nurses report that it has not been used. They have it covered in towels, which they have taped over the area, so the patient cannot pull on it further. The patient did not know additional history. Reviewing the admission H and P, he has had a previous stroke with hemiplegia, dysphagia, dysarthria, dementia and he is noncommunicative. Apparently, he is bedridden for the most part. Lives with family. About 8 days ago, he was having moaning at night, sometimes he has diarrhea. He had a CAT scan in the emergency room, which showed mild subacute chronic subdural hematomas. PAST MEDICAL HISTORY: 1. Previous CVA with hemiplegia. 2. Dementia. 3. Hypertension. 4. Hypothyroidism. 5. Dyslipidemia. PAST SURGICAL HISTORY: 1. Eye surgery. 2. PEG tube placement. SOCIAL HISTORY: The patient lives with family. They take care of him. ALLERGIES: NONE KNOWN. MEDICATIONS: At home: 1. Tamsulosin. 2. Finasteride. 3. Aspirin. 4. Atorvastatin. 5. Levothyroxine. 6. Temazepam. 7. Amlodipine. 8. Trazodone. PRESENT MEDICATIONS: 1. P.r.n. Tylenol. 2. Amlodipine. 3. Aspirin. 4. Atorvastatin. 5. Famotidine. 6. Finasteride. 7. Labetalol. 8. Levothyroxine. 9. Zofran. 10. Tamsulosin. REVIEW OF SYSTEMS: Unable to be obtained. PHYSICAL EXAMINATION: VITAL SIGNS: Temperature is 98.6, he has been afebrile since admission, pulse is 89, blood pressure 153/73. GENERAL: He has an occlusive dressing over his PEG. This is removed. The PEG tube site looks fine, but it is unclear if it is in his stomach from its appearance. He does not appear to be in pain. LUNGS: Clear. HEART: Irregular rate and rhythm. ABDOMEN: Soft and nontender. LABORATORY DATA: White count 6.5, hemoglobin 12.7, MCV 103, platelet count 309. Comprehensive metabolic profile normal. Troponin was 0.874, 1.137 and 1.375 this admission. Lipase is 14. AST, ALT are 45 and 63. X-RAY: On 08/07/2018, nonspecific bowel-gas pattern. I have reviewed that film, there is no contrast in that study. You cannot tell where the PEG is. There is copious amount of stool throughout the rectum and colon. Ultrasound abdomen, possible sludge or stone in the gallbladder. Findings equivocal for cholelithiasis, thickened gallbladder wall. ASSESSMENT: 1. This is a patient who has had a stroke, he does not communicate, he has dementia, he was felt to be uncomfortable per his family and was brought here to the hospital. 2. On exam, he has a benign abdomen. 3. There were several findings that may explain his discomfort. He has possibly a non-Q-wave myocardial infarction. He has gallstones with thickened gallbladder wall and he has constipation with possible impaction. 4. He did pull out his tube partially last night, his percutaneous endoscopic gastrostomy tube and this has now been replaced. This was initially placed on 08/26/2017. The tube that is in now is a replacement percutaneous endoscopic gastrostomy tube. RECOMMENDATIONS: 1. PEG tube check in radiology with Gastrografin to make sure it is in the stomach. 2. Abdominal binder over PEG tube. 3. Disimpact enemas and suppositories. 4. If the patient still seems to be uncomfortable, may resume consider further evaluation with gallbladder HIDA scan to make sure there is no acute cholecystitis or surgical consultation, but if he does not appear uncomfortable, since he has no fever at this point time or leukocytosis, I would not be in a hurry to consult surgery. Job ID: [id number]
[2018-08-08] MEDS: Fleet Enema 133 ML BOT FS SCH ×2 (01:01→08:31)
[2018-08-08] MEDS: Levothyroxine Sodium 50 MCG TAB PO SCH (05:55)
[2018-08-08 06:53] LABS: ALT (SGPT) 56 U/L (8-55); AST (SGOT) 37 U/L (5-34); Albumin 3.1 g/dL (3.4-4.8); Alkaline Phosphatase 137 U/L (40-150); Anion Gap 12 mmol/L (10-20); BUN (Urea Nitrogen) 23 mg/dL (8.4-25.7); Bilirubin, Total 0.8 mg/dL (0.2-1.2); Calc. Creatinine Clearance 55 mL/min (70-130); Calcium 8.7 mg/dL (7.8-10.44); Carbon Dioxide 25 mmol/L (23-31); Chloride 106 mmol/L (98-107); Estimated GFR-MDRD 75; Globulin 3.9 g/dL (2.4-3.5); Glucose 127 mg/dL (83-110); Magnesium 2.3 mg/dL (1.6-2.6); Potassium 3.5 mmol/L (3.5-5.1); Sodium 139 mmol/L (136-145)
[2018-08-08 07:40] LABS: Band 21 % (5-11); Lymphocytes 2 % (21-51); MDiff Complete? YES; Mean Corpuscular HGB CONC 32.8 g/dL (32.0-36.0); Mean Corpuscular Hemoglobin 33.5 pg (27.0-31.0); Mean Platelet Volume 6.5 fL (7.4-10.4); Neutrophil 77 % (42-75); Platelet Count 335 thou/uL (130-400); RBC Distribution Width 12.4 % (11.5-14.5); Red Blood Cell (RBC) Count 3.89 mill/uL (4.70-6.10); White Blood Cell (WBC) Count 17.5 thou/uL (4.8-10.8)
[2018-08-08] MEDS: Famotidine 20 MG TAB PER TUBE SCH ×3 (09:00→22:00)
[2018-08-08] MEDS ORDERED: Piperacillin/Tazobactam 3.375 GM in Sodium Chloride 0.9% 100 ML IVPB SCH (09:00)
[2018-08-08] MEDS ORDERED: Sodium Chloride 0.9% 500 ML IV SCH (09:30)
--- NOTE | 2018-08-08 09:39 | PRG ---
DATE OF SERVICE: 08/08/2018 SUBJECTIVE: Mr. Maloney had his tube check with contrast yesterday and the radiologist felt that the tip of the tube was probably in the small bowel with the balloon either in the small bowel or the abdominal wall. I reviewed those films and that really would not make sense with the tip being in the small bowel, but the balloon possibly in the abdominal wall. In any event, we fed him without difficulty last night. Talking to his nurse, he is having loose stools, so his fecal impaction has cleared and they are going to stop the enemas. OBJECTIVE: VITAL SIGNS: Pulse 94, temperature 98.3, blood pressure 125/75. GENERAL: The patient is noncommunicative from prior stroke. ABDOMEN: Soft and nontender. PEG tube was rechecked again today it is in about 4 cm, so it was pulled back to the bumper which brought the balloon probably back into the stomach. When I deflated the balloon and pulled it out, reinserted it, blew up the balloon deeply and then pulled it back to a distance of about 3 cm. So, it should be in good working order. LABORATORY DATA: White count 17.5, hemoglobin 13.0, platelet count 335. Sodium 139, potassium 3.5, BUN and creatinine 23 and 0.96. AST and ALT are 37 and 57. Bilirubin normal. ASSESSMENT: 1. PEG tube partially removed, seems to be in the right place now by x-ray and exam. It is functioning well. 2. Constipation noted on previous x-ray, resolved. 3. Leukocytosis today which is new and of unclear etiology. He has no signs of fever. He does have bandemia. Differential diagnoses include possible gallbladder disease. He had stones and sludge and thickened gallbladder wall on ultrasound, aspiration pneumonia or some type of other complications from the PEG tube. RECOMMENDATIONS: As the patient was unable to give history, I would go ahead and get a CAT scan of his abdomen and pelvis at this point in time. Job ID: [id number]
[2018-08-08] MEDS: Sodium Chloride 0.9% 1,000 ML IV SCH ×3 (13:18→20:40)
--- NOTE | 2018-08-08 13:20 | PDOC.PN ---
- Subjective Encounter Start Date: 08/08/18 Encounter Start Time: 09:00 -: non-verbal Patient seen and examined for NSTEMI. No overnight events. Mentation same. - Objective Resuscitation Status - Order Detail: 08/05/18 19:01 Resuscitation Status Routine Resuscitation Status: DNAR: NO Resuscitation Discussed with: Family MAR Reviewed: Yes Vital Signs & Weight: Vital Signs (12 hours) Temp Pulse Resp BP Pulse Ox 08/08/18 07:55 98.3 F 94 20 125/72 98 08/08/18 03:00 98.8 F 102 H 20 125/76 95 Weight Admit Weight 146 lb 14.4 oz Weight 148 lb 4.8 oz I&O: 08/07/18 08/08/18 08/09/18 06:59 06:59 06:59 Intake Total 317 300 Balance 317 300 Result Diagrams: 08/08/18 05:41 08/08/18 05:41 EKG Reviewed by me: Yes (Tele Afib) Phys Exam - Physical Examination Constitutional: NAD (Restless) Respiratory: no wheezing, no rhonchi Cardiovascular: no rub, irregular Gastrointestinal: soft, positive bowel sounds Musculoskeletal: no edema Neurological: moves all 4 limbs (spont) Dx/Plan - Plan DVT proph w/SCDs IMPRESSION: 1. Hos-TB-fnnfscvdz myocardial infarction. 2. Sepsis due to unclear etio 3. Percutaneous endoscopic gastrostomy tube malfunction. ok to start TF per GI 4. 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 5. Dysphagia on percutaneous endoscopic gastrostomy tube feeding. 6. Hypertension. 7. Benign prostatic hypertrophy. 8. Abnormal LFTs of unclear etiology, probably secondary to passive hepatic congestion vs gall bladder etiology. 9. Dementia. 10. Moderate protein-calorie malnutrition. 11. DNR status. 12. Jmfm-nb-thvizsam tricuspid regurgitation with ejection fraction of 40% to 45 %. 13. Chronic atrial fibrillation, not an anticoagulation candidate due to hemorrhagic cerebrovascular accident. PLAN: Blood cultures Start Zosyn CT abd ordered per GI Hold TF for now IVF - will need IV access AM labs Cont ASA Add low dose Coreg Cont other meds as below Review of Systems - Review of Systems Other: Cannot obtain due to current mentation - Medications/Allergies Allergies/Adverse Reactions: Allergies Allergy/AdvReac Type Severity Reaction Status Date / Time No Known Allergies Allergy Verified 09/04/17 15:32 Medications: Current Medications Acetaminophen (Tylenol) 650 mg PER TUBE Q4H PRN PRN Reason: Headache/Fever/Mild Pain (1-3) Acetaminophen (Tylenol) 650 mg [place] Q4H PRN PRN Reason: Headache/Fever/Mild Pain (1-3) Amlodipine Besylate (Norvasc) 10 mg PO DAILY [facility] Last Admin: 08/07/18 09:00 Dose: Not Given Aspirin (Aspirin Chewable) 81 mg PO DAILY [facility] Atorvastatin Calcium (Lipitor) 20 mg PER TUBE HS [facility] Last Admin: 08/07/18 21:55 Dose: 20 mg Famotidine (Pepcid) 20 mg PER TUBE BID [facility] Last Admin: 08/08/18 09:00 Dose: Not Given Finasteride (Proscar) 5 mg PO DAILY [facility] Last Admin: 08/07/18 09:00 Dose: Not Given Piperacillin Sod/Tazobactam (Sod 3.375 gm/ Sodium Chloride) 100 mls @ 200 mls/ hr IVPB Q6H [facility] Last Admin: 08/08/18 09:46 Dose: 100 mls Sodium Chloride (Normal Saline 0.9%) 1,000 mls @ 125 mls/hr IV .Q8H [facility] Last Admin: 08/08/18 13:18 Dose: Not Given Labetalol HCl (Normodyne) 10 mg SLOW IVP Q4H PRN PRN Reason: Systolic BP > 180 Levothyroxine Sodium (Synthroid) 50 mcg PO 0600 [facility] Last Admin: 08/08/18 05:55 Dose: 50 mcg Nitroglycerin (Nitro-Bid 2% Ointment) 1 inch TOP BID [facility] Last Admin: 08/07/18 21:53 Dose: Not Given Ondansetron HCl (Zofran Odt) 4 mg PER TUBE Q6H PRN PRN Reason: Nausea/Vomiting Ondansetron HCl (Zofran) 4 mg IVP Q6H PRN PRN Reason: Nausea/Vomiting Senna/Docusate Sodium (Senokot S) 2 tab PER TUBE BID PRN PRN Reason: Constipation Sodium Biphosphate/Sodium Phosphate (Fleet Enema) 133 ml FS Q8H [facility] Last Admin: 08/08/18 08:31 Dose: Not Given Sodium Chloride (Flush - Normal Saline) 10 ml IVF Q12HR [facility] Last Admin: 08/07/18 21:53 Dose: Not Given Sodium Chloride (Flush - Normal Saline) 10 ml IVF PRN PRN PRN Reason: Saline Flush Tamsulosin HCl (Flomax) 0.4 mg PO DAILY [facility] Last Admin: 08/07/18 09:00 Dose: Not Given Temazepam (Restoril) 15 mg PO HS PRN PRN Reason: Agitation Last Admin: 08/06/18 21:14 Dose: 15 mg
--- NOTE | 2018-08-08 13:33 | CT ---
CT OF ABODMEN AND PELVIS PERFORMED WITH IV CONTRAST ENHANCEMENT: Date: 08/08/18 HISTORY: Abdominal pain. Recent issues with a PEG tube. FINDINGS: Lung bases show some bibasilar atelectasis with small left and a tiny right pleural effusion. The liver, spleen, pancreas, and gallbladder regions appear unremarkable. Gastrostomy tube is seen within the stomach. Right adrenal gland is normal. There is a left adrenal mass. It has CT Hounsfield unit numbers that a re indeterminate. It measures 3.1 cm in size. It is still most likely a benign etiology. CT of the ab domen performed using adrenal mass protocol would be needed for confirmation. The right and left kidn eys are normal in size. There is a small hypodensity involving the left kidney, most likely a cyst. T here is no significant periaortic or mesenteric lymphadenopathy. CT of pelvis was performed with IV contrast enhancement. There is marked wall thickening in the recto sigmoid region with pronounced pericolonic fat stranding with edema change most pronounced in the pre sacral fat. There are also some edema changes that track into the left and to a lesser extent the rig ht paracolic gutter. There is a moderate amount of stool within the sigmoid colon, mainly proximal to this area of edematous change. The appendix appears unremarkable. No significant pelvic lymphadenopa thy. IMPRESSION: 1. Bibasilar atelectasis with small left and very tiny right pleural effusion. 2. PEG tube in position. 3. Indeterminate 3.1 cm left adrenal mass. 4. Marked edema changes of the wall of the colon, specifically this is in the rectosigmoid colon reg ion. There is a moderate amount of stool just immediately proximal and to this edematous area. This a ppears to extend to the anus. I do not see any air within the edematous appearing wall. POS: [facility]
[2018-08-08] MEDS: Nitroglycerin 2% Ointment 1 INCH/1 GM Packet TOP SCH ×2 (13:39→22:00)
[2018-08-08] MEDS: metroNIDAZOLE 500 MG in Premix Bag 1 BAG IVPB SCH ×2 (14:06→22:00)
[2018-08-08] MEDS: Finasteride 5 MG TAB PO SCH (14:07)
[2018-08-08] MEDS: Amlodipine 10 MG TAB PO SCH (14:07)
[2018-08-08] MEDS: Aspirin Chewable 81 MG TAB PO SCH (14:08)
[2018-08-08] MEDS: Tamsulosin HCl 0.4 MG CAP PO SCH (14:08)
[2018-08-08] MEDS ORDERED: Polyethylene Glycol 3350 17 GM Packet PO SCH (15:45)
[2018-08-08] MEDS ORDERED: ISOVUE-370 76%-LOCM 1 ML ONE (16:34)
[2018-08-08] MEDS: cefTRIAXone\\ROCEPHIN 1 GM in Sodium Chloride 0.9% 100 ML IVPB SCH (17:15)
[2018-08-08] MEDS: Atorvastatin Calcium 20 MG TAB PER TUBE SCH (22:00)
[2018-08-08] MEDS: Metoprolol Tartrate 25 MG TAB PER TUBE SCH (22:00)
[2018-08-08] MEDS: Temazepam 15 MG CAP PO PRN (22:01)
[2018-08-09] MEDS: Sodium Chloride 0.9% 1,000 ML IV SCH (03:31)
[2018-08-09] MEDS: Levothyroxine Sodium 50 MCG TAB PO SCH (06:16)
[2018-08-09 06:17] LABS: #Basophils 0.1 thou/uL (0.0-0.2); #Lymphocytes 0.8 thou/uL (1.20-3.40); #Monocytes 0.4 thou/uL (0.11-0.59); #Neutrophils 12.7 thou/uL (1.40-6.50); %Basophils 0.9 % (0.0-1.0); %Eosinophils 0.1 % (0.0-10.0); %Lymphocytes 5.6 % (21.0-51.0); %Monocytes 3.1 % (0.0-10.0); %Neutrophils 90.3 % (42.0-75.0); Hemoglobin 11.1 g/dL (14.0-18.0); Mean Corpuscular HGB CONC 32.8 g/dL (32.0-36.0); Mean Corpuscular Hemoglobin 33.8 pg (27.0-31.0); Mean Platelet Volume 6.2 fL (7.4-10.4); Platelet Count 249 thou/uL (130-400); RBC Distribution Width 12.4 % (11.5-14.5); Red Blood Cell (RBC) Count 3.28 mill/uL (4.70-6.10); White Blood Cell (WBC) Count 14.1 thou/uL (4.8-10.8)
[2018-08-09] MEDS: metroNIDAZOLE 500 MG in Premix Bag 1 BAG IVPB SCH ×3 (06:17→21:45)
[2018-08-09 06:39] LABS: ALT (SGPT) 42 U/L (8-55); AST (SGOT) 30 U/L (5-34); Albumin 2.5 g/dL (3.4-4.8); Alkaline Phosphatase 100 U/L (40-150); Anion Gap 9 mmol/L (10-20); BUN (Urea Nitrogen) 25 mg/dL (8.4-25.7); Bilirubin, Total 0.7 mg/dL (0.2-1.2); Calc. Creatinine Clearance 59 mL/min (70-130); Calcium 8.3 mg/dL (7.8-10.44); Carbon Dioxide 24 mmol/L (23-31); Chloride 108 mmol/L (98-107); Estimated GFR-MDRD 81; Globulin 3.3 g/dL (2.4-3.5); Glucose 103 mg/dL (83-110); Phosphorus 2.9 mg/dL (2.3-4.7); Protein, Total 5.8 g/dL (5.8-8.1); Sodium 138 mmol/L (136-145)
[2018-08-09 06:49] LABS: Potassium 2.9 mmol/L (3.5-5.1)
[2018-08-09] MEDS: NS 0.9% w/ 40 MEQ KCL 1,000 ML IV SCH (07:59)
[2018-08-09] MEDS: Aspirin Chewable 81 MG TAB PO SCH (08:04)
[2018-08-09] MEDS: Finasteride 5 MG TAB PO SCH (08:04)
[2018-08-09] MEDS: Metoprolol Tartrate 25 MG TAB PER TUBE SCH ×2 (08:04→21:45)
[2018-08-09] MEDS: Tamsulosin HCl 0.4 MG CAP PO SCH (08:04)
[2018-08-09] MEDS: Famotidine 20 MG TAB PER TUBE SCH ×2 (08:04→21:45)
[2018-08-09] MEDS: Nitroglycerin 2% Ointment 1 INCH/1 GM Packet TOP SCH ×2 (08:07→21:45)
[2018-08-09] MEDS: Polyethylene Glycol 3350 17 GM Packet PO SCH (08:07)
[2018-08-09] MEDS: Amlodipine 10 MG TAB PO SCH (08:18)
[2018-08-09] MEDS: Multivits W-Minerals Liquid 15mL UDCUP PER TUBE SCH (09:45)
[2018-08-09] MEDS: cefTRIAXone\\ROCEPHIN 1 GM in Sodium Chloride 0.9% 100 ML IVPB SCH (16:53)
--- NOTE | 2018-08-09 18:17 | PDOC.PN ---
- Subjective Encounter Start Date: 08/09/18 Encounter Start Time: 09:00 Patient seen and examined for NSTEMI. No new complaints. No overnight events - Objective Resuscitation Status - Order Detail: 08/05/18 19:01 Resuscitation Status Routine Resuscitation Status: DNAR: NO Resuscitation Discussed with: Family MAR Reviewed: Yes Vital Signs & Weight: Vital Signs (12 hours) Temp Pulse Resp BP BP Pulse Ox 08/09/18 16:27 97.7 F 81 18 95/63 96 08/09/18 11:16 97.9 F 76 17 97/59 L 98 08/09/18 08:18 76 08/09/18 08:07 97.4 F L 76 16 110/63 100 Weight Admit Weight 146 lb 14.4 oz Weight 148 lb 4.8 oz I&O: 08/08/18 08/09/18 08/10/18 06:59 06:59 06:59 Intake Total 905 931 1274 Balance 906 954 6321 Result Diagrams: 08/09/18 05:51 08/09/18 05:51 EKG Reviewed by me: Yes (Tele SR) Phys Exam - Physical Examination Constitutional: NAD Respiratory: no wheezing, no rhonchi Dec AE at base Cardiovascular: RRR, no rub Gastrointestinal: soft, non-tender, positive bowel sounds Musculoskeletal: no edema Dx/Plan - Plan IMPRESSION: 1. Hsv-WE-mdeabpnvq myocardial infarction. 2. Sepsis due to colitis/Ecoli bacteremia 3. Percutaneous endoscopic gastrostomy tube malfunction. ok to start TF per GI 4. Hypokalemia 5. Dysphagia on percutaneous endoscopic gastrostomy tube feeding. 6. Hypertension. 7. Benign prostatic hypertrophy. 8. Abnormal LFTs of unclear etiology, probably secondary to passive hepatic congestion vs gall bladder etiology. 9. Dementia. 10. Moderate protein-calorie malnutrition. 11. DNR status. 12. Gxmj-gt-irjopahl tricuspid regurgitation with ejection fraction of 40% to 45 %. 13. Chronic atrial fibrillation, not an anticoagulation candidate due to hemorrhagic cerebrovascular accident. 13. 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 PLAN: Cont Atbx Consult ID Replace Potassium AM labs Cont ASA/low dose Coreg Cont other meds as below Review of Systems - Review of Systems Other: Cannot obtain due to current mentation - Medications/Allergies Allergies/Adverse Reactions: Allergies Allergy/AdvReac Type Severity Reaction Status Date / Time No Known Allergies Allergy Verified 09/04/17 15:32 Medications: Current Medications Acetaminophen (Tylenol) 650 mg PER TUBE Q4H PRN PRN Reason: Headache/Fever/Mild Pain (1-3) Last Admin: 08/08/18 22:01 Dose: 650 mg Acetaminophen (Tylenol) 650 mg [place] Q4H PRN PRN Reason: Headache/Fever/Mild Pain (1-3) Amlodipine Besylate (Norvasc) 10 mg PO DAILY [facility] Last Admin: 08/09/18 08:18 Dose: 10 mg Aspirin (Aspirin Chewable) 81 mg PO DAILY [facility] Last Admin: 08/09/18 08:04 Dose: 81 mg Atorvastatin Calcium (Lipitor) 20 mg PER TUBE HS [facility] Last Admin: 08/08/18 22:00 Dose: 20 mg Famotidine (Pepcid) 20 mg PER TUBE BID [facility] Last Admin: 08/09/18 08:04 Dose: 20 mg Finasteride (Proscar) 5 mg PO DAILY [facility] Last Admin: 08/09/18 08:04 Dose: 5 mg Metronidazole 500 mg/ Device 100 mls @ 100 mls/hr IVPB Q8HR [facility] Last Admin: 08/09/18 14:36 Dose: 100 mls Ceftriaxone Sodium 1 gm/ (Sodium Chloride) 100 mls @ 200 mls/hr IVPB 1800 [facility] Last Admin: 08/09/18 16:53 Dose: 100 mls Potassium Chloride/Sodium Chloride (Ns 0.9% W/ 40 Meq Kcl) 1,000 mls @ 50 mls/ hr IV .Q20H [facility] Last Admin: 08/09/18 07:59 Dose: 1,000 mls Iron/Minerals/Multivitamins (Certa Abdiel Liquid) 15 ml PER TUBE DAILY [facility] Last Admin: 08/09/18 09:45 Dose: 15 ml Labetalol HCl (Normodyne) 10 mg SLOW IVP Q4H PRN PRN Reason: Systolic BP > 180 Levothyroxine Sodium (Synthroid) 50 mcg PO 0600 [facility] Last Admin: 08/09/18 06:16 Dose: 50 mcg Metoprolol Tartrate (Lopressor) 12.5 mg PER TUBE BID [facility] Last Admin: 08/09/18 08:04 Dose: 12.5 mg Nitroglycerin (Nitro-Bid 2% Ointment) 1 inch TOP BID [facility] Last Admin: 08/09/18 08:07 Dose: Not Given Ondansetron HCl (Zofran Odt) 4 mg PER TUBE Q6H PRN PRN Reason: Nausea/Vomiting Ondansetron HCl (Zofran) 4 mg IVP Q6H PRN PRN Reason: Nausea/Vomiting Polyethylene Glycol (Miralax) 17 gm PO DAILY [facility] Last Admin: 08/09/18 08:07 Dose: Not Given Senna/Docusate Sodium (Senokot S) 2 tab PER TUBE BID PRN PRN Reason: Constipation Sodium Chloride (Flush - Normal Saline) 10 ml IVF Q12HR [facility] Last Admin: 08/09/18 08:07 Dose: Not Given Sodium Chloride (Flush - Normal Saline) 10 ml IVF PRN PRN PRN Reason: Saline Flush Tamsulosin HCl (Flomax) 0.4 mg PO DAILY [facility] Last Admin: 08/09/18 08:04 Dose: 0.4 mg Temazepam (Restoril) 15 mg PO HS PRN PRN Reason: Agitation Last Admin: 08/08/18 22:01 Dose: 15 mg
[2018-08-09] MEDS: Temazepam 15 MG CAP PO PRN (21:45)
[2018-08-09] MEDS: Atorvastatin Calcium 20 MG TAB PER TUBE SCH (21:45)
[2018-08-10] MEDS: Levothyroxine Sodium 50 MCG TAB PO SCH (06:15)
[2018-08-10] MEDS: NS 0.9% w/ 40 MEQ KCL 1,000 ML IV SCH (06:15)
[2018-08-10] MEDS: metroNIDAZOLE 500 MG in Premix Bag 1 BAG IVPB SCH ×2 (06:15→14:32)
[2018-08-10 06:43] LABS: ALT (SGPT) 57 U/L (8-55); AST (SGOT) 60 U/L (5-34); Albumin 2.5 g/dL (3.4-4.8); Alkaline Phosphatase 102 U/L (40-150); Anion Gap 11 mmol/L (10-20); BUN (Urea Nitrogen) 27 mg/dL (8.4-25.7); Bilirubin, Total 0.4 mg/dL (0.2-1.2); Calc. Creatinine Clearance 75 mL/min (70-130); Calcium 8.3 mg/dL (7.8-10.44); Carbon Dioxide 21 mmol/L (23-31); Chloride 111 mmol/L (98-107); Estimated GFR-MDRD Greater than 90; Globulin 3.4 g/dL (2.4-3.5); Glucose 85 mg/dL (83-110); Potassium 3.9 mmol/L (3.5-5.1); Protein, Total 5.9 g/dL (5.8-8.1); Sodium 139 mmol/L (136-145)
[2018-08-10 06:53] LABS: Hemoglobin 11.4 g/dL (14.0-18.0); Mean Platelet Volume 6.5 fL (7.4-10.4); Platelet Count 303 thou/uL (130-400); RBC Distribution Width 12.7 % (11.5-14.5)
[2018-08-10] MEDS ORDERED: 1/2 NS w/KCL 20 mEq 1,000 ML IV SCH (07:45)
[2018-08-10 08:06] LABS: White Blood Cell (WBC) Count 11.5 thou/uL (4.8-10.8)
[2018-08-10 08:08] LABS: Mean Corpuscular Hemoglobin 33.4 pg (27.0-31.0)
[2018-08-10 08:15] LABS: Acanthocytes SLIGHT = 1-5 cells (100X) (None Seen); Band 9 % (5-11); Elliptocytes SLIGHT = 2-5 cells (100X) (0-1/hpf); Lymphocytes 10 % (21-51); MDiff Complete? YES; Macrocytosis SLIGHT = 6-15 cells (100X) (0-5/hpf); Neutrophil 81 % (42-75); Ovalocytes SLIGHT = 2-5 cells (100X) (0-1/hpf); Platelet Morphology Comment Appears Adequate; Polychromasia SLIGHT = 2-3 cells (100X) (0-2/hpf)
[2018-08-10] MEDS ORDERED: cefTRIAXone\\ROCEPHIN 2 GM in Sodium Chloride 0.9% 100 ML IVPB SCH (09:00)
[2018-08-10] MEDS: Multivits W-Minerals Liquid 15mL UDCUP PER TUBE SCH (10:40)
[2018-08-10] MEDS: Finasteride 5 MG TAB PO SCH (10:41)
[2018-08-10] MEDS: Tamsulosin HCl 0.4 MG CAP PO SCH (10:41)
[2018-08-10] MEDS: Metoprolol Tartrate 25 MG TAB PER TUBE SCH (10:41)
[2018-08-10] MEDS: Amlodipine 10 MG TAB PO SCH (10:42)
[2018-08-10] MEDS: Famotidine 20 MG TAB PER TUBE SCH (10:42)
[2018-08-10] MEDS: Aspirin Chewable 81 MG TAB PO SCH (10:43)
[2018-08-10] MEDS: Polyethylene Glycol 3350 17 GM Packet PO SCH (10:43)
[2018-08-10 12:56] VITALS: TEMP 97.9
--- NOTE | 2018-08-10 14:28 | DIS ---
DATE OF ADMISSION: 08/05/2018 DATE OF DISCHARGE: 08/10/2018 DISCHARGE DISPOSITION: Home Hospice with [facility]. ALLERGIES: NO KNOWN DRUG ALLERGIES. CODE STATUS: Do not resuscitate. FOLLOWUP: Follow up with Dr. Suzanne Solitario as scheduled. BRIEF HOSPITAL COURSE: The patient is an 83-year-old male with previous CVA causing right-sided hemiplegia; dysphagia, status post PEG tube, presented to the hospital with altered mentation. Please refer to the History and Physical for further details. The patient was admitted to the hospital with altered mentation. His workup was consistent with sky-JM-vqckaupqw [place]. His maximum troponin was 1.3 with elevated CK-MB of 11.7. The patient was seen by Cardiology and was managed conservatively. He will continue aspirin. Low-dose beta-blockers were added. NOEL inhibitors were avoided due to risk of acute kidney injury. The patient partially pulled the PEG tube during this hospitalization due to confusion. The PEG tube was reinserted back. He also underwent Gastrografin testing to confirm the PEG tube placement. He is tolerating PEG tube. Due to leukocytosis with WBC of 17.5, he underwent CT scan of the abdomen, that showed possible colitis. He was placed on IV antibiotics. His WBC counts have improved to 11.5. He also has only 9% bandemia from 21% bandemia. He also had electrolyte abnormalities, which were replaced. FINAL DIAGNOSES: 1. Toxic metabolic encephalopathy. 2. Sepsis secondary to colitis. 3. Escherichia coli bacteremia of unclear etiology, probably contamination. 4. Bfq-PV-tvfepanux myocardial infarction. 5. Percutaneous endoscopic gastrostomy tube malfunction. 6. Hypokalemia. 7. Chronic dysphagia. The patient has percutaneous endoscopic gastrostomy tube. 8. Hypertension. 9. Benign prostatic hypertrophy. 10. Abnormal LFTs of unclear etiology. Probably secondary to passive hepatic congestion. 11. Dementia. 12. Moderate protein-calorie malnutrition. 13. Sudu-ms-kivvbbmw tricuspid regurgitation with ejection fraction 40% to 45%. 14. Chronic atrial fibrillation, not an anticoagulation candidate due to hemorrhagic cerebrovascular accident in the past. 15. 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 16. Bedridden status. TIME SPENT: Total time coordinating the discharge of this patient was 37 minutes. Job ID: [id number]
[2018-08-10 16:59] VITALS: BP 128/67
--- NOTE | 2018-08-12 14:36 | PQF ---
AVE CARNEY MALIK MD [id number] [facility]-257 [id number] CLINICAL DOCUMENTATION CLARIFICATION FORM: POST DISCHARGE DATE: 08-12-2018 ATTN: Dr. Franco Please exercise your independent, professional judgment in responding to the clarification form. Clinical indicators are provided on the bottom of this form for your review Diagnosis: Sepsis Present on Admission (POA): [ x] Yes [ ] No [ ] Unable to determine Diagnosis: Toxic Metabolic Encephalopathy Present on Admission (POA): [ x] Yes [ ] No [ ] Unable to determine Diagnosis: Colitis Present on Admission (POA): [ x ] Yes [ ] No [ ] Unable to determine Coding guidelines require hospitals to identify whether a diagnosis was present on admission (POA) or not. To accurately assign the appropriate POA indicator, this information must be clearly documented within the medical record. CLINICAL INDICATORS - SIGNS / SYMPTOMS / LABS Per H&P Altered mental status. Per Discharge Summary: Due to leukocytosis with WBC of 17.5, he underwent CT scan of the abdomen, that showed possible colitis. WBC counts have improved to 11.5. Bandemia 9% from 21%. Final Diagnoses: Toxic metabolic encephalopathy. Sepsis secondary to colitis. Per 08/[address] Mancini: Leukocytosis today which is new and of unclear etiology. He has no signs of fever. He does have bandemia. Hospitalist PN's 08/08-08/09: Sepsis due to colitis/Ecoli bacteremia. Labs: WBC 17.5 on 08/08. 14.1 on 08/09. 11.5 on 08/10. RISK FACTORS: Altered mental status on admission. NSTEMI. History of CVA with right hemiplegia/dysphagia with PEG. Bedridden status. Moderate protein calorie malnutrition. TREATMENT: IV Zosyn. IV fluids.l (This form is maintained as a part of the permanent medical record) 2014 [employer], [employer]. All Rights Reserved Deann [email or web address] [phone] MTDD
--- NOTE | 2018-08-15 18:44 | EKG ---
Test Reason : Blood Pressure : / mmHG Vent. Rate : 073 BPM Atrial Rate : 202 BPM P-R Int : 000 ms QRS Dur : 090 ms QT Int : 416 ms P-R-T Axes : 000 -62 037 degrees QTc Int : 458 ms Atrial fibrillation with premature ventricular or aberrantly conducted complexes Left anterior fascicular block Abnormal ECG Confirmed by TALITA MENDEZ ([id number]), proposal editor KINGSLEY LOPEZ ([id number]) on 08/15/2018 6:44:04 PM Referred By: GORDO MENDEZ Confirmed By:TALITA MENDEZ
== END 2018-08-10 18:30 | disposition hospice, home (50) | DRG 871 ==
LOC: ERS 14:46 → 2NO 18:40
PROVIDERS: ADMIT Emergency Medicine; ATTEND Emergency Medicine
DX: A41.9 Sepsis, unspecified organism (principal); I21.4 Non-ST elevation (NSTEMI) myocardial infarction; G92 Toxic encephalopathy; I62.03 Nontraumatic chronic subdural hemorrhage; I69.351 Hemiplegia and hemiparesis following cerebral infarction affecting right dominant side; E44.0 Moderate protein-calorie malnutrition; K94.23 Gastrostomy malfunction; E78.5 Hyperlipidemia, unspecified; N40.0 Benign prostatic hyperplasia without lower urinary tract symptoms; Z66 Do not resuscitate; F03.90 Unspecified dementia, unspecified severity, without behavioral disturbance, psychotic disturbance, mood disturbance, and anxiety; I10 Essential (primary) hypertension; E03.9 Hypothyroidism, unspecified; I69.391 Dysphagia following cerebral infarction; R13.10 Dysphagia, unspecified; I07.1 Rheumatic tricuspid insufficiency; I48.2 Chronic atrial fibrillation; K52.9 Noninfective gastroenteritis and colitis, unspecified; E87.6 Hypokalemia; Z74.01 Bed confinement status; Z68.24 Body mass index [BMI] 24.0-24.9, adult; Z79.82 Long term (current) use of aspirin; Z79.899 Other long term (current) drug therapy; Y83.3 Surgical operation with formation of external stoma as the cause of abnormal reaction of the patient, or of later complication, without mention of misadventure at the time of the procedure
CPT/HCPCS: 36415; 51701; 70450; 71045; 74018; 74177; 76705; 80048; 80053; 81003; 81015; 82553; 83690; 83735; 83880; 84100; 84484; 85025; 87040; 87045; 87046; 87077; 87149; 87186; 87324; 87328; 87329; 87449; 87899; 93005; 93306; 96372; J0696; J1650; J2060; J2543; J3480; J7050; Q9963; Q9966